=== PATIENT | female | born 1950 | race Caucasian/White ===

== ENCOUNTER 2017-01-15 16:28 | Observation (INO) | payer MEDICARE ==
[~2017-01-15] VITALS: Ht 162.6 cm; Wt 72.0 kg
[2017-01-15] VITALS (7 sets, daily range): BP systolic 125–158; BP diastolic 67–85; PULSE 100–112; RESP 16–20; TEMP 98.6–98.9; O2SAT 92–96
[~2017-01-15 16:28] MED LIST: DICL50 PO; GLUCTAB PO
[2017-01-15] MEDS ORDERED: FURO1TAB62 PO (18:25)
[2017-01-15] MEDS ORDERED: METF500T PO (18:25)
[2017-01-15] MEDS ORDERED: SPIR25TA PO (18:25)
[2017-01-15] MEDS ORDERED: MELO-1 PO (18:25)
[2017-01-15 18:27] LABS: MEAN CORPUSCULAR HGB CONC 29.3 % (32.0-36.0)
[2017-01-15] MEDS ORDERED: PANTOPRAZOLE SODIUM 40 MG VIAL IVP ONE (18:30)
[2017-01-15] MEDS ORDERED: SODIUM CHLORIDE 0.9% FLUSH 10 ML FLUSH IV FLUSH PRN (18:30)
--- NOTE | 2017-01-15 18:35 | PD ---
HPI Chief Complaint: Edema Time Seen by Provider: 18:20 Travel History International Travel<30 days: No Contact w/Intl Traveler<30days: No Traveled to known affect area: No History of Present Illness HPI 66-year-old female who reports a history of diabetes presents for evaluation of dyspnea, weakness, abdominal distention, black tarry stools and hematemesis. The patient reports that 2 weeks ago she vomited a large amount of bright red blood. She claims that she filled 2 sinks with bright red blood-tinged emesis. She reports that since then she has been developing abdominal distention, left sided upper quadrant abdominal pain and shortness of breath. Symptoms are moderate, aggravated by movement. She also feels like her legs are more swollen than usual. In addition she has been having black tarry stools but she is uncertain if this is secondary to taking iron supplements. She does report that she in the past used meloxicam on a regular basis for arthritis type pain but she for the most part quit using it in September 2016. She still uses it occasionally. Denies any other NSAID use. She was seen by her Primary care physician about this issue, Dr. Soliz, who scheduled an outpatient CT of the abdomen and pelvis however this has not been performed and symptoms have been worsening with prompted evaluation today. She denies any chest pain, flank pain , fevers or chills. She has never had an endoscopy or colonoscopy. She has no other complaints. [facility] Past Medical History Arthritis: Yes Cardiovascular Problems: Yes (1996) Diabetes: Yes Patient Takes Glucophage: Yes Menopausal: Yes Past Surgical History Section: Yes Cholecystectomy: Yes Gynecologic Surgery: Yes () Social History Alcohol Use: No Tobacco Use: No Substance Use: No Allergies-Medications (Allergen,Severity, Reaction): Coded Allergies: Codeine (Verified Allergy, Severe, 01/15/17) Percocet (Verified Allergy, Severe, 01/15/17) Percodan (Verified Allergy, Severe, 01/15/17) Reported Meds & Prescriptions Reported Meds & Active Scripts Active Reported Spironolactone 25 Mg Tab 25 Mg PO DAILY Lasix (Furosemide) 20 Mg Tab 20 Mg PO DAILY Metformin (Metformin HCl) 500 Mg Tab 500 Mg PO BIDPC With meals Meloxicam 15 Mg Tab 15 Mg PO DAILY Review of Systems Except as stated in HPI: all other systems reviewed are Neg Physical Exam Narrative GENERAL: Well-developed well-nourished female in no acute distress. She has low -grade tachycardia and her oxygen saturation is in the low 90s. She appears mildly tachypneic. SKIN: Warm and dry. Pale. HEAD: Atraumatic. Normocephalic. EYES: Pupils equal and round. No scleral icterus. No injection or drainage. ENT: No nasal bleeding or discharge. Mucous membranes pink and moist. NECK: Trachea midline. No JVD. CARDIOVASCULAR: Regular rate and rhythm. No murmur appreciated. RESPIRATORY: No accessory muscle use. Clear to auscultation. Breath sounds equal bilaterally. GASTROINTESTINAL: Abdomen soft, distended with some left-sided abdominal tenderness. No guarding. MUSCULOSKELETAL: No obvious deformities. There is nonpitting lower extremity edema bilaterally. NEUROLOGICAL: Awake and alert. No obvious cranial nerve deficits. Motor grossly within normal limits. Normal speech. PSYCHIATRIC: Appropriate mood and affect; insight and judgment normal. Data Data Last Documented VS Vital Signs Date Time Temp Pulse Resp B/P Pulse Ox O2 Delivery O2 Flow Rate FiO2 01/15/17 19:03 95 2 01/15/17 18:27 106 20 145/67 Room Air 01/15/17 16:28 98.9 Orders Type And Screen (01/15/17 18:25) Complete Blood Count With Diff (01/15/17 18:25) Comprehensive Metabolic Panel (01/15/17 18:25) Lipase (01/15/17 18:25) Prothrombin Time / Inr (Pt) (01/15/17 18:25) Act Partial Throm Time (Ptt) (01/15/17 18:25) Iv Access Insert/Monitor (01/15/17 18:25) Ecg Monitoring (01/15/17 18:25) Oximetry (01/15/17 18:25) Sodium Chloride 0.9% Flush (Ns Flush) (01/15/17 18:30) Electrocardiogram (01/15/17 18:25) Chest, Single Ap (01/15/17 18:25) B-Type Natriuretic Peptide (01/15/17 18:25) Ckmb (Isoenzyme) Profile (01/15/17 18:25) Troponin I (01/15/17 18:25) Pantoprazole Inj (Protonix Inj) (01/15/17 18:30) Red Blood Cells (Rbc) (01/15/17 19:05) Blood Product Administration .UPON TRANSFUSION (01/15/17 19:05) Ct Abd/Pel W Iv Contrast(Rout) (01/15/17 19:09) CKMB (01/15/17 18:35) CKMB% (01/15/17 18:35) Iohexol 350 Inj (Omnipaque 350 Inj) (01/15/17 19:19) Sodium Chlor 0.9% 1000 Ml Inj (Ns 1000 M (01/15/17 19:34) Admit Order (Ed Use Only) (01/15/17 20:01) Labs Laboratory Tests Test 01/15/17 01/15/17 01/15/17 18:35 19:07 19:28 White Blood Count 3.9 TH/MM3 Red Blood Count 3.31 MIL/MM3 Hemoglobin 6.0 GM/DL Hematocrit 20.4 % Mean Corpuscular Volume 61.7 FL Mean Corpuscular Hemoglobin 18.1 PG Mean Corpuscular Hemoglobin 29.3 % Concent Red Cell Distribution Width 22.1 % Platelet Count 88 TH/MM3 Mean Platelet Volume 8.8 FL Neutrophils (%) (Auto) % Lymphocytes (%) (Auto) % Monocytes (%) (Auto) % Eosinophils (%) (Auto) % Basophils (%) (Auto) % Neutrophils # (Auto) TH/MM3 Lymphocytes # (Auto) TH/MM3 Monocytes # (Auto) TH/MM3 Eosinophils # (Auto) TH/MM3 Basophils # (Auto) TH/MM3 CBC Comment AUTO DIFF Differential Total Cells 100 Counted Neutrophils % (Manual) 63 % Lymphocytes % 23 % Monocytes % 7 % Eosinophils % 6 % Basophils % 1 % Neutrophils # (Manual) 2.5 TH/MM3 Differential Comment FINAL DIFF MANUAL Platelet Estimate LOW Platelet Morphology Comment ENLARGED Ovalocytes 1+ Prothrombin Time 13.4 SEC Prothromb Time International 1.2 RATIO Ratio Activated Partial 24.7 SEC Thromboplast Time Sodium Level 140 MEQ/L Potassium Level 3.4 MEQ/L Chloride Level 107 MEQ/L Carbon Dioxide Level 22.2 MEQ/L Anion Gap 11 MEQ/L Blood Urea Nitrogen 5 MG/DL Creatinine 0.66 MG/DL Estimat Glomerular Filtration 89 ML/MIN Rate Random Glucose 99 MG/DL Calcium Level 8.4 MG/DL Total Bilirubin 1.7 MG/DL Aspartate Amino Transf 31 U/L (AST/SGOT) Alanine Aminotransferase 29 U/L (ALT/SGPT) Alkaline Phosphatase 121 U/L Total Creatine Kinase 186 U/L Creatine Kinase MB 5.2 NG/ML Troponin I LESS THAN 0.02 NG/ML B-Type Natriuretic Peptide 54 PG/ML Total Protein 7.0 GM/DL Albumin 2.9 GM/DL Lipase 207 U/L Blood Type A POSITIVE A POSITIVE Antibody Screen NEGATIVE Blood Bank Comment V Crossmatch Leukocyte-Reduced Red Blood Cells MDM Medical Decision Making Medical Screen Exam Complete: Yes Emergency Medical Condition: Yes Medical Record Reviewed: Yes Interpretation(s) EKG sinus tachycardia rate 102 Differential Diagnosis Upper GI bleed, lower GI bleed, peptic ulcer disease, perforation, critical anemia, pulmonary embolism Narrative Course 66-year-old female with 2 weeks of GI bleed symptoms with shortness of breath, abdominal distention, stool description suggesting melena, hematemesis, shortness of breath and fatigue. Place for basic lab work, type and screen, chest x-ray, CT abdomen and pelvis. The patient will be placed on ECG monitoring and pulse oximetry. She was given 40 mg IV Protonix. Hemoccult performed and was positive. Discussed with my attending who agrees with plan. The patient's laboratory and imaging studies of the interview. Hemoglobin is 6. CT of the abdomen and pelvis reveals a large right pleural effusion as well as evidence of cirrhosis with portal hypertension. The patient was given 2 units of packed red blood cells, 1 L of normal saline. Patient has no known history of cirrhosis. I discussed the case with Dr. Garcia who is agreeable with admission to Dr. Corrales. The patient is being admitted with cardiac telemetry. Procedures EKG Prior to Arrival: Yes HemaPrompt Point of Care Internal Pos. & Neg. Controls: Passed Fecal Specimen Occult Blood: Positive Diagnosis Primary Impression: GI bleed Qualified Code: K92.2 - Gastrointestinal hemorrhage, unspecified gastrointestinal hemorrhage type Additional Impressions: Symptomatic anemia Cirrhosis Qualified Code: K74.60 - Cirrhosis of liver with ascites, unspecified hepatic cirrhosis type Pleural effusion Admitting Information Admitting Physician Requests: Admit Jean Claude Win Jan 15, 2017 18:35
[2017-01-15 18:58] LABS: MEAN CELL VOLUME 61.7 FL (80.0-100.0); MEAN CORPUSCULAR HEMOGLOBIN 18.1 PG (27.0-34.0); PLATELET COUNT 88 TH/MM3 (150-450); RED BLOOD COUNT 3.31 MIL/MM3 (4.00-5.30); RED CELL DISTRIBUTION WIDTH 22.1 % (11.6-17.2); WHITE BLOOD COUNT 3.9 TH/MM3 (4.0-11.0)
[2017-01-15 19:00] LABS: HEMO FLAGS AUTO DIFF
[2017-01-15 19:04] LABS: HEMATOCRIT 20.4 % (35.0-46.0)
[2017-01-15 19:06] LABS: ANION GAP 11 MEQ/L (5-15); AST (GOT) 31 U/L (15-37); BICARBONATE 22.2 MEQ/L (21.0-32.0); BLOOD UREA NITROGEN 5 MG/DL (7-18); CHLORIDE 107 MEQ/L (98-107); GLOMERULAR FILTRATION RATE 89 ML/MIN (>89); POTASSIUM 3.4 MEQ/L (3.5-5.1); SODIUM (NA) 140 MEQ/L (136-145)
[2017-01-15 19:10] LABS: ALKALINE PHOSPHATASE 121 U/L (45-117); ALT (GPT) 29 U/L (10-53); CREATINE KINASE 186 U/L (26-192); TOTAL BILIRUBIN ADULT 1.7 MG/DL (0.2-1.0)
[2017-01-15 19:14] LABS: APTT (PATIENT) 24.7 SEC (24.3-30.1); INTERNATIONAL NORMALIZED RATIO 1.2 RATIO; PROTHROMBIN TIME - PATIENT 13.4 SEC (9.8-11.6)
[2017-01-15] MEDS ORDERED: IOHEXOL 350 MG/ML 10 ML VIAL (for RAD DIAG) IV ONE (19:19)
--- NOTE | 2017-01-15 19:20 | RADRPT ---
EXAM DATE/TIME: 01/15/2017 18:47 [facility] COMPARISON: No previous studies available for comparison. INDICATIONS : SOB MEDICAL HISTORY : None. SURGICAL HISTORY : None. ENCOUNTER: Initial ACUITY: 1 day PAIN SCORE: 0/10 LOCATION: chest FINDINGS: Extensive consolidation in the right lower lung zone with associated effusion. Possible minimal effus ion on the left. Cardiac contours are largely obscured. CONCLUSION: Extensive pleuroparenchymal opacity involving the right chest Nuno Mariano MD on January 15, 2017 at 19:17 Board Certified Radiologist. This report was verified electronically.
[2017-01-15 19:23] LABS: CKMB 5.2 NG/ML (0.5-3.6)
[2017-01-15] MEDS ORDERED: SODIUM CHLOR 0.9% 1000 ML INJ 1,000 ML IV SCH (19:34)
--- NOTE | 2017-01-15 19:37 | RADRPT ---
EXAM DATE/TIME: 01/15/2017 19:18 [facility] COMPARISON: No previous studies available for comparison. INDICATIONS : Abdominal distention with black stool and hematemesis. IV CONTRAST: 100 cc Omnipaque 350 (iohexol) IV ORAL CONTRAST: No oral contrast ingested. RADIATION DOSE: 14.98 CTDIvol (mGy) MEDICAL HISTORY : Diabetes mellitus type 2. SURGICAL HISTORY : Cholecystectomy. section. ENCOUNTER: Initial ACUITY: 1 day PAIN SCALE: 6/10 LOCATION: Bilateral lower quadrant TECHNIQUE: Volumetric scanning of the abdomen and pelvis was performed. Using automated exposure control and ad justment of the mA and/or kV according to patient size, radiation dose was kept as low as reasonably achievable to obtain optimal diagnostic quality images. FINDINGS: LOWER LUNGS: Very large right pleural effusion with associated compressive lung base atelectasis. LIVER: Cirrhotic appearance with multiple small low density nodular areas present throughout the liver which are nonspecific but could be regenerative nodules. Prominent recanalized periumbilical vein and othe r stigmata of portal hypertension including prominent esophageal varices. Small line of abdominal and pelvic ascites. No evidence of biliary ductal dilatation. Gallbladder surgically absent. SPLEEN: Mildly enlarged. PANCREAS: Within normal limits. KIDNEYS: Normal in size and shape. There is no mass, stone or hydronephrosis. ADRENAL GLANDS: Within normal limits. VASCULAR: There is no aortic aneurysm. BOWEL/MESENTERY: The stomach, small bowel, and colon demonstrate no acute abnormality. There is no free intraperitone al air or fluid. ABDOMINAL WALL: Within normal limits. RETROPERITONEUM: There is no lymphadenopathy. BLADDER: No wall thickening or mass. REPRODUCTIVE: Within normal limits. INGUINAL: There is no lymphadenopathy or hernia. MUSCULOSKELETAL: Within normal limits for patient age. CONCLUSION: Liver cirrhosis and stigmata of portal hypertension. Innumerable small low density areas in the liver may be regenerative nodules however the appearance is nonspecific. Large right pleural effusion and lung base atelectasis. Nuno Mariano MD on January 15, 2017 at 19:32 Board Certified Radiologist. This report was verified electronically.
[2017-01-15 19:57] LABS: BASOPHILS 1 % (0-2); EOSINOPHILS 6 % (0-4); NEUTROPHIL # MANUAL DIFF 2.5 TH/MM3 (1.8-7.7); POLYS (SEG NEUTROPHILS) 63 % (16-70); WBC DIFF SAMPLE 100
[2017-01-15 20:00] LABS: OVALOCYTES 1+ (NORMAL); PLATELET ESTIMATE SMEAR LOW (NORMAL); PLATELET MORPHOLOGY ENLARGED (NORMAL); SCAN/DIFF FINAL DIFF MANUAL
[2017-01-15] MEDS ORDERED: SODIUM CHLORIDE 0.9% FLUSH 10 ML FLUSH IVF PRN (20:15)
[2017-01-15] MEDS: SODIUM CHLORIDE 0.9% FLUSH 10 ML FLUSH IV FLUSH SCH (21:00)
[2017-01-16] VITALS (10 sets, daily range): BP systolic 110–164; BP diastolic 60–79; PULSE 97–112; RESP 16–21; TEMP 97.1–98.6; O2SAT 93–97
[2017-01-16] MEDS ORDERED: ONDANSETRON HCL 4 MG/2 ML VIAL IV PRN (08:30)
[2017-01-16] MEDS ORDERED: POTASSIUM CHLORIDE 20 MEQ CONTROLLED RELEASE TAB PO ONE (08:45)
[2017-01-16] MEDS ORDERED: FUROSEMIDE 20 MG/2 ML VIAL IV PUSH ONE (08:45)
[2017-01-16] MEDS: SODIUM CHLORIDE 0.9% FLUSH 10 ML FLUSH IV FLUSH SCH ×2 (09:00→21:47)
[2017-01-16] MEDS: PANTOPRAZOLE SODIUM 40 MG VIAL IV SCH ×2 (09:26→21:47)
--- NOTE | 2017-01-16 09:52 | PD.CONS ---
HPI History of Present Illness This is a very pleasant 66 year old female with history of diabetes, GERD, cholecystectomy is here for evaluation of dyspnea, abdomen distension, legs edema, black tarry stools, and hematemesis. The abdomen distension and the legs edema have been progressively getting worse over the past 6 months or so, she reports associated shortness of breath especially when lying down. States that 2 weeks ago she vomited a large amount of bright red blood. She claims that she filled 2 sinks with bright red blood-tinged emesis, but no more hematemesis since that episode. She went to see her PCP who ordered CT, but that wasn't done. She endorses black tarry stools for few months which she attributes to iron supplement. She reports mid abdomen pain with no aggravating or reliving factors. Chest X-ray showed Extensive pleuroparenchymal opacity involving the right chest CT (01/15/17) ---->Liver cirrhosis and stigmata of portal hypertension. Innumerable small low density areas in the liver may be regenerative nodules however the appearance is nonspecific. Large right pleural effusion and lung base atelectasis. hgb 6.0, plt 88, AST, ALT normal, ALP 121, bili 1.7, albumin 2.9. Patient denies previous history of cirrhosis. She used to be a heavy drinker in the her 20's and 30's, but has quit for years , now she only drinks 3 times a year if any. She admits to taking Aleve for arthritis type pain but not daily. She reports diarrhea for the past few days, but forming today. She endorses chronic GERD that was poorly controlled with Nexium and was recently switched to Protonix with good symptomatic control. She denies hematochezia, fever, chills or change in urine. She never had EGD/ colonoscopy before. (Steffany Scott) PFSH Past Medical History DM GERD Past Surgical History Cholecystectomy (Steffany Scott) Coded Allergies: Codeine (Verified Allergy, Severe, 01/15/17) Percocet (Verified Allergy, Severe, 01/15/17) Percodan (Verified Allergy, Severe, 01/15/17) Medications Current Medications Medications (Trade) Dose Ordered Sig/Kike Route Start Time Stop Time Status Last Admin (NS Flush) 2 ml UNSCH PRN IV FLUSH 01/15/17 18:30 (NS Flush) 2 ml BID IV FLUSH 01/15/17 21:00 (NS Flush) 2 ml UNSCH PRN IVF 01/15/17 20:15 (Protonix Inj) 40 mg BID IV 01/16/17 09:00 (Zofran Inj) 4 mg Q6H PRN IV 01/16/17 08:30 Family History No family history of colon cancer, her cousin had liver cirrhosis, but was a drinker Social History Alcohol Use: No, hx of heavy drinking in 's and 's Tobacco Use: No Substance Use: No (Steffany Scott) Review of Systems Constitutional: COMPLAINS OF: Fatigue Endocrine: DENIES: Polyuria Eyes: DENIES: Double Vision Ears, nose, mouth, throat: DENIES: Hoarseness Respiratory: COMPLAINS OF: Shortness of breath Cardiovascular: COMPLAINS OF: Lower Extremity Edema, DENIES: Syncope Gastrointestinal: COMPLAINS OF: Abdominal pain, Black stools, Diarrhea, Nausea , Vomiting, Swelling of Abdomen, Heartburn, Hematemesis, DENIES: Bloody stools , Constipation, Difficulty Swallowing, Anorexia, Odynophagia Genitourinary: DENIES: Hematuria Musculoskeletal: DENIES: Neck pain Integumentary: DENIES: Jaundice Hematologic/lymphatic: DENIES: Bruising Immunologic/allergic: DENIES: Eczema Neurologic: DENIES: Abnormal gait Psychiatric: DENIES: Anxiety (Steffany Scott) GI Exam Vitals I&O Vital Signs Date Time Temp Pulse Resp B/P Pulse Ox O2 Delivery O2 Flow Rate FiO2 01/16/17 08:00 98.1 98 16 133/66 95 01/16/17 07:54 94 Nasal Cannula 2.00 01/16/17 00:47 97.1 100 20 134/76 96 01/16/17 00:31 97.1 103 20 137/74 96 01/16/17 00:11 97.1 112 21 164/79 97 01/15/17 22:30 98.6 102 20 143/67 93 Nasal Cannula 2 01/15/17 21:23 95 Nasal Cannula 2.00 01/15/17 20:51 100 16 125/85 94 Nasal Cannula 2 01/15/17 20:19 98.9 100 18 154/67 96 Nasal Cannula 3 01/15/17 19:03 95 2 01/15/17 18:27 106 20 145/67 94 Room Air 01/15/17 16:28 98.9 112 20 158/74 92 Room Air I/O 01/15/17 01/15/17 01/15/17 01/16/17 01/16/17 01/16/17 07:00 15:00 23:00 07:00 15:00 23:00 Intake Total 250 ml 770 ml Balance 250 ml 770 ml Intake Oral 380 ml IV Total 32 ml Packed Cells 250 ml 358 ml # Voids 5 Imaging Last Impressions Abdomen/Pelvis CT 01/15/17 1909 Signed Impressions: Service Date/Time: Sunday, January 15, 2017 19:18 - CONCLUSION: Liver cirrhosis and stigmata of portal hypertension. Innumerable small low density areas in the liver may be regenerative nodules however the appearance is nonspecific. Large right pleural effusion and lung base atelectasis. Nuno Mariano MD Chest X-Ray 01/15/17 1829 Signed Impressions: Service Date/Time: Sunday, January 15, 2017 18:47 - CONCLUSION: Extensive pleuroparenchymal opacity involving the right chest Nuno Mariano MD Laboratory Test 01/15/17 01/15/17 01/15/17 18:35 19:07 19:28 White Blood Count 3.9 TH/MM3 Red Blood Count 3.31 MIL/MM3 Hemoglobin 6.0 GM/DL Hematocrit 20.4 % Mean Corpuscular Volume 61.7 FL Mean Corpuscular Hemoglobin 18.1 PG Mean Corpuscular Hemoglobin 29.3 % Concent Red Cell Distribution Width 22.1 % Platelet Count 88 TH/MM3 Mean Platelet Volume 8.8 FL Neutrophils (%) (Auto) % Lymphocytes (%) (Auto) % Monocytes (%) (Auto) % Eosinophils (%) (Auto) % Basophils (%) (Auto) % Neutrophils # (Auto) TH/MM3 Lymphocytes # (Auto) TH/MM3 Monocytes # (Auto) TH/MM3 Eosinophils # (Auto) TH/MM3 Basophils # (Auto) TH/MM3 CBC Comment AUTO DIFF Differential Total Cells 100 Counted Neutrophils % (Manual) 63 % Lymphocytes % 23 % Monocytes % 7 % Eosinophils % 6 % Basophils % 1 % Neutrophils # (Manual) 2.5 TH/MM3 Differential Comment FINAL DIFF MANUAL Platelet Estimate LOW Platelet Morphology Comment ENLARGED Ovalocytes 1+ Prothrombin Time 13.4 SEC Prothromb Time International 1.2 RATIO Ratio Activated Partial 24.7 SEC Thromboplast Time Sodium Level 140 MEQ/L Potassium Level 3.4 MEQ/L Chloride Level 107 MEQ/L Carbon Dioxide Level 22.2 MEQ/L Anion Gap 11 MEQ/L Blood Urea Nitrogen 5 MG/DL Creatinine 0.66 MG/DL Estimat Glomerular Filtration 89 ML/MIN Rate Random Glucose 99 MG/DL Calcium Level 8.4 MG/DL Total Bilirubin 1.7 MG/DL Aspartate Amino Transf 31 U/L (AST/SGOT) Alanine Aminotransferase 29 U/L (ALT/SGPT) Alkaline Phosphatase 121 U/L Total Creatine Kinase 186 U/L Creatine Kinase MB 5.2 NG/ML Troponin I LESS THAN 0.02 NG/ML B-Type Natriuretic Peptide 54 PG/ML Total Protein 7.0 GM/DL Albumin 2.9 GM/DL Lipase 207 U/L Blood Type A POSITIVE A POSITIVE Antibody Screen NEGATIVE Blood Bank Comment V Crossmatch Leukocyte-Reduced Red Blood Cells Physical Examination HEENT: Pupils round and reactive to light; normocephalic; atraumatic; no jaundice. Throat is clear. NECK: Neck is supple, no JVD, no lymphadenopathy. CHEST: Chest is clear to auscultation and percussion. CARDIAC: Regular rate and rhythm with no murmur gallop or rubs. ABDOMEN: Soft, distended,tender; no hepatosplenomegaly; bowel sounds are present in all four quadrants. EXTREMITIES: 2+ edema SKIN: Normal; no rash; no jaundice. FRONT OFFICE DEVELOPER: No focal deficits; alert and oriented times three. (Steffany Scott) Assessment and Plan Plan - GI bleed/anemia of 6- PPI Gtt, received 2 units of blood last night, HH today pending, no more bleeding reported, She never had EGD/colonoscopy before. Patient is here for evaluation of dyspnea, abdomen distension, legs edema, black tarry stools, and hematemesis. The abdomen distension and the legs edema have been progressively getting worse over the past 6 months or so, she reports associated shortness of breath especially when lying down. States that 2 weeks ago she vomited a large amount of bright red blood. She claims that she filled 2 sinks with bright red blood-tinged emesis, but no more hematemesis since that episode. She went to see her PCP who ordered CT, but that wasn't done. She endorses black tarry stools for few months which she attributes to iron supplement. She reports mid abdomen pain with no aggravating or reliving factors. She admits to taking Aleve for arthritis type pain but not daily. She reports diarrhea for the past few days, but forming today. - New diagnosis of cirrhosis- CT (01/15/17) ---->Liver cirrhosis and stigmata of portal hypertension. Innumerable small low density areas in the liver may be regenerative nodules however the appearance is nonspecific. Large right pleural effusion and lung base atelectasis. hgb 6.0, plt 88, AST, ALT normal, ALP 121, bili 1.7, albumin 2.9. Patient denies previous history of cirrhosis. She used to be a heavy drinker in the her 20's and 30's, but has quit for years, now she only drinks 3 times a year if any. - GERD She endorses chronic GERD that was poorly controlled with Nexium and was recently switched to Protonix with good symptomatic control. - Thrombocytopenia- secondary to cirrhosis - pleural effusion- Chest X-ray showed Extensive pleuroparenchymal opacity involving the right chest - DM per attending Plan: - NPO - EGD/banding today to r/o varices, or PUD - Obtain consents - cont. PPI Gtt - BRITNEY, AMA, ASMA, Celiac panel, iron studies, ceruloplasmin, alpha antitrypsin deficiency, AFP, hepatitis panel - Lasix 20 mg, Aldactone 50 mg - monitor hh - Transfuse as needed - supportive care - Patient seen and examined by Dr. Paulino and myself and this note is written on her behalf. (Steffany Scott) Physician Comments seen, examined agree with above she was told 25 years ago , when she had cholecystectomy, that she had fatty liver-no biopsy as per her she has a history etoh use in her 20's and 30's. she stopped drinking since denies history of hepatitis, jaundice , her father had liver cirrhosis due to etoh. Never had egd/colonoscopy, was scheduled to see next week . States she has anemia for the last 1 year ADDENDUM patient seen in or by anesthesia, procedure cancelled for now due sob, low saturation we will reschedule possible next week egd/colon, urgent endoscopy if active bleeding may need thoracocentesis if not better (Nicki Paulino MD) Steffany Scott Jan 16, 2017 09:52 Nicki Paulino MD Jan 16, 2017 11:06
[2017-01-16 10:56] LABS: HEMATOCRIT 25.6 % (35.0-46.0); MEAN CELL VOLUME 65.6 FL (80.0-100.0); MEAN CORPUSCULAR HGB CONC 32.1 % (32.0-36.0); PLATELET COUNT 86 TH/MM3 (150-450); RED CELL DISTRIBUTION WIDTH 26.2 % (11.6-17.2); WHITE BLOOD COUNT 3.4 TH/MM3 (4.0-11.0)
[2017-01-16 11:00] LABS: REVIEW FLAG FINAL
[2017-01-16 11:15] LABS: BICARBONATE 23.1 MEQ/L (21.0-32.0); POTASSIUM 3.6 MEQ/L (3.5-5.1)
[2017-01-16 11:16] LABS: TRANSFERRIN IRON PROFILE 290 MG/DL (200-360)
[2017-01-16 11:18] LABS: FERRITIN 6 NG/ML (8-252)
--- NOTE | 2017-01-16 16:10 | EKG ---
Date Performed: 01/15/2017 Time Performed: 18:41:16 PTAGE: 66 years EKG: SINUS TACHYCARDIA MINIMAL ST DEPRESSION QRS voltage is smaller compared to the old tracing ABNORMAL RHYTHM ECG PREVIOUS TRACING : 01/03/1994 15.07 DOCTOR: Mariusz Vo Interpretating Date/Time 01/16/2017 16:09:03
[2017-01-17] VITALS: BP 127/72; PULSE 108; RESP 17; TEMP 97.9; O2SAT 94
[2017-01-17 04:38] LABS: POTASSIUM 3.5 MEQ/L (3.5-5.1)
[2017-01-17 04:46] LABS: MEAN CELL VOLUME 65.7 FL (80.0-100.0); MEAN CORPUSCULAR HEMOGLOBIN 20.9 PG (27.0-34.0); MEAN CORPUSCULAR HGB CONC 31.8 % (32.0-36.0); PLATELET COUNT 75 TH/MM3 (150-450); RED BLOOD COUNT 3.51 MIL/MM3 (4.00-5.30); RED CELL DISTRIBUTION WIDTH 25.7 % (11.6-17.2); WHITE BLOOD COUNT 2.9 TH/MM3 (4.0-11.0)
[2017-01-17 04:52] LABS: REVIEW FLAG FINAL
[2017-01-17 08:00] VITALS: BP 118/59; PULSE 92; RESP 17; TEMP 98.3; O2SAT 95
[2017-01-17] MEDS: SODIUM CHLORIDE 0.9% FLUSH 10 ML FLUSH IV FLUSH SCH (08:32)
[2017-01-17] MEDS: PANTOPRAZOLE SODIUM 40 MG VIAL IV SCH (08:32)
[2017-01-17] MEDS ORDERED: FUROSEMIDE 20 MG/2 ML VIAL IV PUSH SCH (09:00)
--- NOTE | 2017-01-17 15:17 | HHI.PR ---
Subjective Remarks sitting on side of bed alert, mild anxiety wanting to go home Objective Objective Results - Vital Signs Date Time Temp Pulse Resp B/P Pulse Ox O2 Delivery O2 Flow Rate FiO2 01/17/17 08:00 98.3 92 17 118/59 95 01/17/17 00:00 97.9 108 17 127/72 94 01/16/17 22:11 93 Nasal Cannula 3.00 01/16/17 21:41 95 Nasal Cannula 2.00 01/16/17 20:00 97.9 98 18 136/71 95 01/16/17 16:00 98.6 112 18 131/78 93 I/O 01/16/17 01/16/17 01/16/17 01/17/17 01/17/17 01/17/17 07:00 15:00 23:00 07:00 15:00 23:00 Intake Total 770 ml 0 ml 240 ml 240 ml Balance 770 ml 0 ml 240 ml 240 ml Intake Oral 380 ml 0 ml 240 ml 240 ml IV Total 32 ml Packed Cells 358 ml # Voids 5 7 5 3 # Bowel Movements 4 5 Result Diagram: 01/17/173 01/17/17 0403 ROS General: Fatigue, Weakness (mild, up in room), Other (10 point ROS done) Pulmonary: SOB (exertional) GI: Abdominal Pain (bloating,) Physical Exam Physical Exam PHYSICAL EXAMINATION GENERAL: This is an mild obese well-developed, well-nourished female sitting on side of bed. She is alert and awake HEAD: Normocephalic without any lesion or mass noted. Facial features appear symmetric. OROPHARYNGEAL: Oropharynx without erythema or edema. NECK: Supple. No nuchal rigidity or lymphadenopathy. Trachea midline without deviation. CARDIAC: Regular rhythm, regular rate, S1 and S2 are heard. Murmur []; no gallops or rubs. LUNGS: Clear to auscultation bilaterally. [] wheeze, [] rhonchi or [] rale. No use of accessory muscles on inspiration or expiration. ABDOMEN: taut, nontender to light palpation, mild fluid wave. Bowel sounds are heard in all four quadrants. No rebound. No guarding. EXTREMITIES: trace LL edema. Pulses equal bilateral. NEUROLOGICAL: Patient mood and affect anxious. No focal deficit SKIN:Warm and moist, dry Objective Remarks Kristal got to go home and check on 7 animals A/P Assessment and Plan anemia , severe, GI bleed 2 weeks, ago, 2 u PRBCs yesterday, hgb back down to 7.3, monitor labs. No further episodes of bleeding. GI consult. appreciate. dm, PO meds medical management, high normal ranges without issues cirrhosis, new diagnosis, with bloating in abd. , but mild improvement over last 24 hrs. appreciate GI consult and input. Pt unable to tolerate lying flat for EDG, procedure yeserday in radiology. Plan is for reattempt procedure in the future/ next week. pleural effusion. , 2nd to SOB, cirrhosis, O2 NC prn, monitor labs reviewed, vitals reviewed, afebrile. BP ok leukopenia, 2nd to cirrhosis probable, K+ 3.5 SCD During visit, patient states she has to go home and take care of 7 animals. She has f/u appointment with PCP jono week, and she states she is set up to see another GI doc this wed. Discussed the medical issues and delimma of leaving hospital against medical advice. It is my and Dr. Corrales's opinion she still needs agressive monitoring and care. Patient still insists on leaving. Signing out AMA. D/W nurse d/W Dr. Corrales Discussed With: Nurse, Family (pt.), Other (Dr. Corrales, seen on her behalf) Christina Parekh Jan 17, 2017 15:17
--- NOTE | 2017-01-17 19:28 | PD.AMA ---
Against Medical Advice Note Discharge Disposition: Against Medical Advice Pt Condition on Discharge: Guarded Recommended Treatment Course Patient was admitted on 17 with extreme anemia, status post large bleeding episode 1-2 weeks ago. Patient also had significant shortness of breath. He required 2 units of packed RBCs and constant monitoring of her labs. She also has new onset diagnosis of cirrhosis which was complicating her severe anemia and shortness of breath. GI was consulted, attempted to have a procedure performed in radiology but patient was unable to lie flat secondary to her shortness of breath. Plan was for patient to stabilize and be able to have this procedure sometime within the next few days. Patient was feeling better today even though her hemoglobin was still trending back down and decided that she wanted to go home. Patient had 7 animals to take care of she states, and plans to follow-up with her PCP in the morning. She also states that her PCP already has her GI appointment scheduled for Wednesday morning as an outpatient should she has had her medical condition and recommendations explained to her but still insist on leaving. Explained to patient that if she has any acute problems she needs to return to the emergency room. she understands this process. Dr. Corrales and [facility] spoke to her in detail. AMA Statement Patient Guera Wilson has decided to leave the hospital against medical advice. This patient has the capacity to refuse care and understands the risks of leaving, including permanent disability and/or , and has had an opportunity to ask questions about her condition. The patient has been informed that she may return for care at any time, and follow up has been arranged/ advised. Christina Parekh Jan 17, 2017 19:28
--- NOTE | 2017-01-18 08:21 | MH ---
cc: AMIE CORRALES DATE OF ADMISSION: 01/15/2017 DATE OF : 1950 CHIEF COMPLAINT Shortness of breath, very recent GI bleeding. Travel in the last 30 days - none. HISTORY OF PRESENT ILLNESS This is a pleasant 66-year-old white female who had been in her usual state of health up until a couple of weeks ago, she noted some edema in her lower extremities which was new to her. She also was sitting one evening watching TV and felt something pop in the right upper quadrant epigastric area of her abdomen. She immediately started bleeding and states that she filled up two sinks of bright red emesis. She then over the past week or two has developed abdominal distention with bloating, abdominal pain and extreme shortness of breath. The patient states that she has been so weak that she had trouble walking to the bathroom or short distances without being very short winded. She did call her PCP, Dr. Soliz, who had ordered some out patient testing which included a CT of the abdomen and pelvis but the patient's symptoms continued to worsen at home. She at that point decided to come to the emergency room for further of evaluation. The patient notes that she also had after that an acute episode of bright red bleeding from emesis, she started having black tarry stools. She does take iron supplements but was not sure if that was related to the color and consistency of the stools. The patient notes that she has been on meloxicam for arthritic type pain in the past but quit taking it in September of 2016. The patient usually is very independent, lives alone and notes no previous problems with her abdomen or GI system. Currently the patient is alert, oriented and a fairly good historian. While in the emergency room, the patient's hemoglobin was 6. She was given 2 units of packed RBCs, placed on oxygen, given IV Protonix and had initial lab work drawn. She also had a chest x-ray and an abdomen and pelvic CT. The patient was stabilized in the emergency room and then brought to the medical floor for further observation. Currently the patient denies any chest pain, no headache, no nausea or vomiting except for that one incident from throwing up the blood. The patient states that she had been taking her medications as prescribed and had no other problems or symptoms. PAST MEDICAL HISTORY Arthritis. Cardiovascular disease from 1996. Diabetic for the past four years, takes metformin twice a day. PAST SURGICAL HISTORY section. Cholecystectomy. ALLERGIES CODEINE, PERCOCET, PERCODAN. SOCIAL HISTORY The patient is , lives alone. No alcohol tobacco or illicit drug use. She states that in the 70s she did drink and do cocaine but has had no drugs since the 70s. MEDICATIONS REPORTED Spironolactone. Lasix. Metformin. Meloxicam which was stopped in September. REVIEW OF SYSTEMS A 12-point review was obtained. Positives and negatives noted in the HPI which include extreme dyspnea, weakness, shortness of breath, abdominal distention, vomiting bright red blood approximately two weeks ago, black tarry stools since, abdominal bloating. All other systems are negative or unremarkable for now. PHYSICAL EXAMINATION VITAL SIGNS: Temperature 97.1, pulse 100, respirations 20, blood pressure 134/76. Initially in the ER pulse was 102, blood pressure 143/67. O2 sat on 2 liters 94%. GENERAL: Well-nourished, well-developed white female, looks to be her stated age, resting in the bed. Actively short of breath at rest and with conversation. HEAD, EYES, EARS, NOSE AND THROAT: Atraumatic, normocephalic. PERRLA at 3. Tongue is moist, midline. Pale mucous membranes. NECK: Supple. CARDIOVASCULAR: Heart sounds S1, S2. A soft systolic murmur noted at the lower left sternal border. Trace of edema in her lower extremities. LUNGS: Equal good breath sounds anteriorly and posteriorly with some mild expiratory wheezing noted. Her breath sounds were diminished on the right. ABDOMEN: Abdomen is round, mild distention with some bloating. Active bowel sounds in all four quadrants. Tactile pain in the right upper quadrant with some mild palpation. MUSCULOSKELETAL: Moves her extremities with purpose. Equal hand sign language teacher. NEUROLOGIC: She is alert, oriented. Answers questions appropriately. Clear speech. No cranial deficits. SKIN: Pale, warm and dry. Turgor is dry. DIAGNOSTIC DATA Chest x-ray shows extensive pleuroparenchymal opacity involving the right chest. Abdomen and pelvic CT: Liver cirrhosis and portal hypertension. Innumerable small low density areas in the liver which may be regenerative nodules, however the appearance is nonspecific. Large pleural effusion and lung base atelectasis. ASSESSMENT AND PLAN 1. Gastrointestinal hemorrhage, probable right upper quadrant. 2. Symptomatic anemia. 3. Cirrhosis of the liver with ascites, with elevated bilirubin level. 4. Pleural effusions. 5. Leukopenia. 6. Hypokalemia. 7. Moderate protein calorie malnutrition. 8. Diabetes mellitus. PLAN Admit to inpatient status. The patient has multisystem comorbidities which may require greater than a 2-3 day admission. She will also have a GI consult to assist in her plan of care. Vital signs will be q.4 at least. Lab work is being reevaluated this a.m. for any further needs and abnormals. Lasix 20 mg IV x1 for her shortness of breath and increased abdominal fluid. We will give her a dose of potassium chloride 40 mg once and reevaluate those needs. IV Protonix. GI consult for his expert opinion. Currently we will manage the patient n.p.o. in case there is further testing that needs to be done from a GI perspective. O2 at 2-4 liters p.r.n. to maintain her sats at 92 or greater. The patient is FULL CODE, FULL AGGRESSIVE CARE. We will follow her further needs. This information will be extensively discussed with Dr. Corrales. Dictated by: [facility] Queen Amie Corrales MD JP/MARYANN /8:43 AM /8:20 AM Patient seen and examined on the day of admission as above. Above-note was not available before to sign Chart was reviewed on day of admission including but not limited to labs radiological data and medications Discussed with RN and [facility] about plan of care Discussed with patient MTDD
[2017-01-18 15:54] LABS: ANA SCREEN NEG (NEG)
[2017-01-20 13:52] LABS: MITOCHONDRIAL ABS LESS THAN 20.0 U (())
== END 2017-01-17 12:30 | disposition home or self-care (01) ==
LOC: NEPA 16:28 → NEDA 20:03 → INTOOBSV 20:03 → N07B 22:44 → UNDODISIN 01-17 12:30
PROVIDERS: ADMIT Specialist; ATTEND Specialist
DX: K92.2 Gastrointestinal hemorrhage, unspecified (principal); Z53.09 Procedure and treatment not carried out because of other contraindication; R06.02 Shortness of breath; D64.9 Anemia, unspecified; K74.60 Unspecified cirrhosis of liver; J90 Pleural effusion, not elsewhere classified; D72.819 Decreased white blood cell count, unspecified; E87.6 Hypokalemia; E44.0 Moderate protein-calorie malnutrition; D69.59 Other secondary thrombocytopenia; E11.9 Type 2 diabetes mellitus without complications; M19.90 Unspecified osteoarthritis, unspecified site; K21.9 Gastro-esophageal reflux disease without esophagitis; Z79.84 Long term (current) use of oral hypoglycemic drugs; Z88.5 Allergy status to narcotic agent; Z88.8 Allergy status to other drugs, medicaments and biological substances; Z68.27 Body mass index [BMI] 27.0-27.9, adult
CPT/HCPCS: 36430; 71010; 74177; 80048; 80053; 80074; 82103; 82105; 82390; 82550; 82552; 82728; 82948; 83516; 83520; 83540; 83550; 83690; 83880; 84484; 85007; 85027; 85610; 85730; 86038; 86256; 86850; 86900; 86901; 86920; 93005; 96374; 99285; C9113; J1940; J7030; P9016; Q9967; G0378

== ENCOUNTER 2018-03-04 13:57 | Inpatient (IN) | payer MEDICARE ==
[~2018-03-04] VITALS: Ht 162.6 cm; Wt 54.3 kg
[~2018-03-04 13:57] MED LIST changes: -DICL50 PO; +FURO1TAB62 PO; -GLUCTAB PO; +MELO15TA20 PO; +METF500T PO; +SPIR25TA PO
[2018-03-04 14:18] VITALS: BP 124/75; PULSE 96; RESP 16; TEMP 97.6; O2SAT 98
--- NOTE | 2018-03-04 14:52 | PD ---
HPI Chief Complaint: Abdominal Pain Time Seen by Provider: 14:48 Travel History International Travel<30 days: No Contact w/Intl Traveler<30days: No Traveled to known affect area: No History of Present Illness HPI This is a 68-year-old female who presents via EMS for evaluation of generalized weakness and abdominal distention. Rapidly progressive generalized weakness, significantly worse over the past week, which prompted evaluation today. She reports that she fell one week ago secondary to the weakness. She currently lives alone. Previously she was follow with primary care physician Dr. Onofre Soliz however she was let go from his practice 2 weeks ago secondary to noncompliance according to the patient. She denies any black or tarry stools, bright red blood per rectum, hematemesis, denies chest pain, shortness of breath , headache, blurred vision. She has no other complaints at this time. PFSH Past Medical History Arthritis: Yes Asthma: No Cancer: Yes Cardiovascular Problems: No COPD: No Diabetes: Yes Endocrine: Yes GERD: Yes Genitourinary: No Immune Disorder: No Neurologic: No Psychiatric: No Reproductive: No Respiratory: Yes Sleep Apnea: No ?: Not Menopausal: Yes Past Surgical History Section: Yes Cholecystectomy: Yes Gynecologic Surgery: Yes () Pacemaker: No Social History Alcohol Use: Yes Tobacco Use: No Substance Use: No Allergies-Medications (Allergen,Severity, Reaction): Coded Allergies: acetaminophen (Unverified Allergy, Severe, 06/08/17) aspirin (Unverified Allergy, Severe, 06/08/17) codeine (Unverified Allergy, Severe, 06/08/17) oxycodone (Unverified Allergy, Severe, 06/08/17) Reported Meds & Prescriptions Reported Meds & Active Scripts Active Reported Spironolactone 25 Mg Tab 25 Mg PO DAILY Lasix (Furosemide) 20 Mg Tab 20 Mg PO DAILY Metformin (Metformin HCl) 500 Mg Tab 1,000 Mg PO BIDPC With meals Review of Systems Except as stated in HPI: all other systems reviewed are Neg Physical Exam Narrative GENERAL: Chronically ill-appearing female no acute distress SKIN: Warm and dry. HEAD: Atraumatic. Normocephalic. EYES: Pupils equal and round. No scleral icterus. No injection or drainage. ENT: No nasal bleeding or discharge. Mucous membranes pink and moist. NECK: Trachea midline. No JVD. CARDIOVASCULAR: Regular rate and rhythm. No murmur appreciated. RESPIRATORY: No accessory muscle use. Clear to auscultation. Breath sounds equal bilaterally. GASTROINTESTINAL: Abdomen soft, distended, generalized mild tenderness to palpation without guarding. MUSCULOSKELETAL: No obvious deformities. No clubbing. No cyanosis. No edema. NEUROLOGICAL: Awake and alert. No obvious cranial nerve deficits. Motor grossly within normal limits. Normal speech. PSYCHIATRIC: Appropriate mood and affect; insight and judgment normal. Data Data Last Documented VS Vital Signs Date Time Temp Pulse Resp B/P (MAP) Pulse Ox O2 Delivery O2 Flow Rate FiO2 03/04/18:18 97.6 96 16 124/75 (91) 98 Orders Orders Complete Blood Count With Diff (03/04/18 14:49) Comprehensive Metabolic Panel (03/04/18 14:49) Lipase (03/04/18 14:49) Prothrombin Time / Inr (Pt) (03/04/18 14:49) Act Partial Throm Time (Ptt) (03/04/18 14:49) Urinalysis - C+S If Indicated (03/04/18 14:49) Ct Abd/Pel W Iv Contrast(Rout) (03/04/18 14:49) Iv Access Insert/Monitor (03/04/18 14:49) Ecg Monitoring (03/04/18 14:49) Oximetry (03/04/18 14:49) Sodium Chloride 0.9% Flush (Ns Flush) (03/04/18 15:00) Electrocardiogram (03/04/18 14:49) Type And Screen (03/04/18 14:49) Ammonia (03/04/18 16:00) Lactic Acid (03/04/18 16:03) Alcohol (Ethanol) (03/04/18 16:03) Salicylates (Aspirin) (03/04/18 16:03) Sodium Chlor 0.9% 1000 Ml Inj (Ns 1000 M (03/04/18 16:03) Blood Gas Venous (Vbg) (03/04/18 16:04) Dextrose 50% In Linette (Vial) Inj (D50w (Vi (03/04/18 16:15) Labs Laboratory Tests Test 03/04/18 15:20 03/04/18 17:18 White Blood Count 4.3 TH/MM3 Red Blood Count 4.96 MIL/MM3 Hemoglobin 11.3 GM/DL Hematocrit 35.6 % Mean Corpuscular Volume 71.7 FL Mean Corpuscular Hemoglobin 22.8 PG Mean Corpuscular Hemoglobin Concent 31.8 % Red Cell Distribution Width 34.0 % Platelet Count 107 TH/MM3 Mean Platelet Volume 9.5 FL Neutrophils (%) (Auto) 58.3 % Lymphocytes (%) (Auto) 28.7 % Monocytes (%) (Auto) 11.4 % Eosinophils (%) (Auto) 0.8 % Basophils (%) (Auto) 0.8 % Neutrophils # (Auto) 2.5 TH/MM3 Lymphocytes # (Auto) 1.2 TH/MM3 Monocytes # (Auto) 0.5 TH/MM3 Eosinophils # (Auto) 0.0 TH/MM3 Basophils # (Auto) 0.0 TH/MM3 CBC Comment AUTO DIFF Differential Comment AUTO DIFF CONFIRMED Prothrombin Time 23.0 SEC Prothromb Time International Ratio 2.3 RATIO Activated Partial Thromboplast Time 31.4 SEC Blood Urea Nitrogen 18 MG/DL Creatinine 0.96 MG/DL Random Glucose 66 MG/DL Total Protein 7.0 GM/DL Albumin 2.5 GM/DL Calcium Level 8.0 MG/DL Alkaline Phosphatase 91 U/L Aspartate Amino Transf (AST/SGOT) 49 U/L Alanine Aminotransferase (ALT/SGPT) 25 U/L Total Bilirubin 4.6 MG/DL Sodium Level 137 MEQ/L Potassium Level 3.4 MEQ/L Chloride Level 99 MEQ/L Carbon Dioxide Level 16.0 MEQ/L Anion Gap 22 MEQ/L Estimat Glomerular Filtration Rate 58 ML/MIN Lipase 98 U/L Blood Gas Puncture Site I.V Blood Gas Patient Temperature 98.6 Venous Blood pH 7.49 Venous Blood Partial Pressure CO2 20 mmHg Venous Blood Partial Pressure O2 21 mmHg Venous Blood HCO3 15 mmol/L Venous Blood Oxygen Saturation 28 % Venous Blood Oxygen Content 3.8 Vol % Venous Blood Base Excess -7.7 mmol/L Oxygen Delivery Device ROOM AIR Blood Gas Inspired Oxygen 21 % [facility] Medical Decision Making Medical Screen Exam Complete: Yes Emergency Medical Condition: Yes Medical Record Reviewed: Yes Differential Diagnosis Ascites, cirrhosis, electrolyte abnormality, anemia Narrative Course CT abdomen and pelvis reveals CONCLUSION: 1. Severe liver cirrhosis with portal hypertension and varices as above. Severe ascites. 2. Moderate right effusion with compressive atelectasis at the right lung base. 3. Scattered colonic diverticulosis. Anion gap is 22, glucose is 66, calcium is 8, bilirubin is 4.6, the patient was given D50. IV fluids ordered. Additional lab worklactic acid, ammonia, aspirin level ordered. PH is 7.49. INR is 2.3. Likely the patient's ascites and pleural effusion and hypoglycemia are contributing to her generalized weakness. She will be admitted for further treatment. Diagnosis Primary Impression: Pleural effusion Additional Impressions: Ascites Hypoglycemia Generalized weakness Cirrhosis Admitting Information Admitting Physician Requests: Admit Jean Claude Win March 04, 2018 14:52
[2018-03-04] MEDS ORDERED: SODIUM CHLORIDE 0.9% FLUSH 10 ML FLUSH IV FLUSH PRN ×2 (15:00→18:15)
[2018-03-04 15:43] LABS: AUTOMATED NEUTROPHIL # 2.5 TH/MM3 (1.8-7.7); BASOPHIL % 0.8 % (0.0-2.0); EOSINOPHIL % 0.8 % (0.0-4.0); HEMATOCRIT 35.6 % (35.0-46.0); HEMOGLOBIN 11.3 GM/DL (11.6-15.3); LYMPH % 28.7 % (9.0-44.0); LYMPHOCYTE # 1.2 TH/MM3 (1.0-4.8); MEAN CELL VOLUME 71.7 FL (80.0-100.0); MEAN CORPUSCULAR HEMOGLOBIN 22.8 PG (27.0-34.0); MEAN CORPUSCULAR HGB CONC 31.8 % (32.0-36.0); MEAN PLATELET VOLUME 9.5 FL (7.0-11.0); MONO % 11.4 % (0.0-8.0); MONOCYTE # 0.5 TH/MM3 (0-0.9); NEUT % 58.3 % (16.0-70.0); PLATELET COUNT 107 TH/MM3 (150-450); RED BLOOD COUNT 4.96 MIL/MM3 (4.00-5.30); WHITE BLOOD COUNT 4.3 TH/MM3 (4.0-11.0)
[2018-03-04 15:52] LABS: INTERNATIONAL NORMALIZED RATIO 2.3 RATIO
[2018-03-04 16:02] LABS: ALBUMIN 2.5 GM/DL (3.4-5.0); AST (GOT) 49 U/L (15-37); BLOOD UREA NITROGEN 18 MG/DL (7-18); CHLORIDE 99 MEQ/L (98-107); CREATININE 0.96 MG/DL (0.50-1.00); GLOMERULAR FILTRATION RATE 58 ML/MIN (>89); GLUCOSE,RANDOM 66 MG/DL (74-106); SODIUM (NA) 137 MEQ/L (136-145)
[2018-03-04] MEDS ORDERED: SODIUM CHLOR 0.9% 1000 ML INJ 1,000 ML IV SCH (16:03)
[2018-03-04 16:05] LABS: ALKALINE PHOSPHATASE 91 U/L (45-117); ALT (GPT) 25 U/L (10-53); TOTAL BILIRUBIN ADULT 4.6 MG/DL (0.2-1.0)
[2018-03-04] MEDS ORDERED: DEXTROSE 50% IN WATER 50 ML VIAL(D50) IV PUSH ONE (16:15)
--- NOTE | 2018-03-04 17:08 | RADRPT ---
EXAM DATE/TIME: 03/04/2018 16:33 [place] COMPARISON: No previous studies available for comparison. INDICATIONS : Abdominal pain and swelling for 6 months IV CONTRAST: 91 cc Omnipaque 350 (iohexol) IV ORAL CONTRAST: No oral contrast ingested. RADIATION DOSE: 9.07 CTDIvol (mGy) MEDICAL HISTORY : Gastroesophageal reflux disease. Diabetes mellitus type 1. SURGICAL HISTORY : Cholecystectomy. ENCOUNTER: Initial ACUITY: 4 - 6 months PAIN SCALE: 5/10 LOCATION: abdomen TECHNIQUE: Volumetric scanning of the abdomen and pelvis was performed. Using automated exposure control and ad justment of the mA and/or kV according to patient size, radiation dose was kept as low as reasonably achievable to obtain optimal diagnostic quality images. DICOM format image data is available electro nically for review and comparison. FINDINGS: There is a least a moderate sized right pleural effusion with compressive atelectasis at the right matt ng base. There is severe liver cirrhosis and severe ascites. There is recannulization of the periumbilical vei ns and extensive varices around the distal esophagus extending into the upper retroperitoneum. There is colonic diverticulosis without evidence for diverticulitis. No acute bony abnormalities. CONCLUSION: 1. Severe liver cirrhosis with portal hypertension and varices as above. Severe ascites. 2. Moderate right effusion with compressive atelectasis at the right lung base. 3. Scattered colonic diverticulosis. Dashawn Lao MD on March 04, 2018 at 17:02 Board Certified Radiologist. This report was verified electronically.
[2018-03-04] MEDS ORDERED: IOHEXOL 350 MG/ML 10 ML VIAL (for RAD DIAG) IVCONTRAST ONE (17:52)
[2018-03-04] MEDS ORDERED: ONDANSETRON HCL 4 MG/2 ML VIAL IVP PRN (18:15)
[2018-03-04] MEDS ORDERED: MAGNESIUM HYDROXIDE SUSP 30 ML CUP PO PRN (18:15)
[2018-03-04] MEDS ORDERED: SENNOSIDES 8.6 MG TAB PO PRN (18:15)
[2018-03-04] MEDS ORDERED: NALOXONE HCL 0.4 MG/ML AMP IV PUSH PRN (18:15)
[2018-03-04] MEDS ORDERED: LACTULOSE SYRUP 20 GM/30 ML CUP PO PRN (18:15)
[2018-03-04] MEDS ORDERED: BISACODYL 10 MG SUPP RECTAL PRN (18:15)
[2018-03-04 18:34] VITALS: O2SAT 97
[2018-03-04 19:16] VITALS: BP 114/78; PULSE 96; RESP 20; O2SAT 96
--- NOTE | 2018-03-04 19:25 | HHI.HP ---
HPI Service [facility] Primary [facility] Physician Onofre Soliz M.D. Admission Diagnosis Severe ascites, pleural effusion, cirrhosis Diagnoses: (1) Cirrhosis Diagnosis: Principal (2) Coagulopathy Diagnosis: Principal (3) Lactic acidosis Diagnosis: Principal (4) DM (diabetes mellitus) Diagnosis: Principal Travel History International Travel<30 Days: No Contact w/Intl Traveler <30 Da: No Traveled to Known Affected Are: No History of Present Illness This is a 68-year-old female with a PMH of DM and h/o GI Bleed who presented to the ER w/ abdominal distention and weakness x1 wk. No reported nausea, vomiting or diarrhea. 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 Pt is significantly poor historian w/ seemingly little insight into medical conditions and appears to be non- compliant w/ medical treatments/follow up. Recently discharged by PCP for non- compliance. Per review of medical records, pt w/ similar presentation and admission 01/15/17, had been sent for CT Abd/Pelvis by PCP however never got it done. Was admitted for GI Bleed at that time w/ Hgb 6 s/p transfusion, noted to have cirrhosis w/ ascites, had extensive work up and was to undergo EGD, however pt had episode of hypoxia and EGD re-scheduled, pt LEFT AMA prior to EGD being done. Labs from 01/16/17 w/ BRITNEY negative, Mitochondrial Ab negative, Anti-Sm Muscle Ab negative, Transglutamin IgG/IgA 1.8/<1.2, Hep Panel negative. Pt reports previous h/o Alcohol but states she drinks "only during bike week and only in [place]". On arrival, BP 124/75, HR 96, O2 sat 98% RA, Afebrile. Hemoglobin 11.3. Platelets 107, previously 75 on 01/17/2017. Chemistry essentially unremarkable. Lactic Acid 6.6. Total bilirubin 4.6. AST 49. Ammonia less than 10. Lipase 98. INR 2.3. Salicylate negative, alcohol negative. CT Abdomen/Pelvis severe liver cirrhosis with portal hypertension and varices, severe ascites, moderate right effusion with compressive atelectasis at right lung base. Review of Systems Except as stated in HPI: all other systems reviewed are Neg ROS: 14 point review of systems otherwise negative. Past Family Social History Past Medical History PMH: DM and h/o GI Bleed Past Surgical History PAST SURGICAL HISTORY: , Cholecystectomy Allergies: Coded Allergies: acetaminophen (Unverified Allergy, Severe, 06/08/17) aspirin (Unverified Allergy, Severe, 06/08/17) codeine (Unverified Allergy, Severe, 06/08/17) oxycodone (Unverified Allergy, Severe, 06/08/17) Family History PAST FAMILY HISTORY: Reviewed. No h/o DM or CAD Social History PAST SOCIAL HISTORY: Occasional alcohol. Negative for tobacco or drugs. Physical Exam Vital Signs Vital Signs Date Time Temp Pulse Resp B/P (MAP) Pulse Ox O2 Delivery O2 Flow Rate FiO2 03/04/18 19:16 96 20 114/78 (90) 96 Room Air 03/04/18 18:34 97 21 03/04/18 14:18 97.6 96 16 124/75 (91) 98 Physical Exam PE: GENERAL: Thin, chronically ill-appearing middle-aged white female in no acute distress. HEENT: PERRLA, EOMI. No scleral icterus or conjunctival pallor. No lid lag or facial droop. CARDIOVASCULAR: Regular rate and rhythm. No obvious murmurs to auscultation. No chest tenderness to palpation. RESPIRATORY: No obvious rhonchi or wheezing. Clear to auscultation. Breath sounds equal bilaterally. GASTROINTESTINAL: Abdomen soft, significant abdominal distention with ascites. BS normal. MUSCULOSKELETAL: Extremities without clubbing, cyanosis, or edema. No obvious deformities. NEUROLOGICAL: Awake, alert and oriented x4. No focal neurologic deficits. Moving both upper and lower extremities spontaneously. Laboratory Laboratory Tests Test 03/04/18 15:20 03/04/18 16:24 03/04/18 16:27 03/04/18 17:18 White Blood Count 4.3 Red Blood Count 4.96 Hemoglobin 11.3 Hematocrit 35.6 Mean Corpuscular Volume 71.7 Mean Corpuscular Hemoglobin 22.8 Mean Corpuscular Hemoglobin Concent 31.8 Red Cell Distribution Width 34.0 Platelet Count 107 Mean Platelet Volume 9.5 Neutrophils (%) (Auto) 58.3 Lymphocytes (%) (Auto) 28.7 Monocytes (%) (Auto) 11.4 Eosinophils (%) (Auto) 0.8 Basophils (%) (Auto) 0.8 Neutrophils # (Auto) 2.5 Lymphocytes # (Auto) 1.2 Monocytes # (Auto) 0.5 Eosinophils # (Auto) 0.0 Basophils # (Auto) 0.0 CBC Comment AUTO DIFF Differential Comment AUTO DIFF CONFIRMED Prothrombin Time 23.0 Prothromb Time International Ratio 2.3 Activated Partial Thromboplast Time 31.4 Blood Urea Nitrogen 18 Creatinine 0.96 Random Glucose 66 Total Protein 7.0 Albumin 2.5 Calcium Level 8.0 Alkaline Phosphatase 91 Aspartate Amino Transf (AST/SGOT) 49 Alanine Aminotransferase (ALT/SGPT) 25 Total Bilirubin 4.6 Sodium Level 137 Potassium Level 3.4 Chloride Level 99 Carbon Dioxide Level 16.0 Anion Gap 22 Estimat Glomerular Filtration Rate 58 Lipase 98 Salicylates Level LESS THAN 1.7 Ethyl Alcohol Level LESS THAN 3 Lactic Acid Level 6.6 Ammonia LESS THAN 10 Blood Gas Puncture Site I.V Blood Gas Patient Temperature 98.6 Venous Blood pH 7.49 Venous Blood Partial Pressure CO2 20 Venous Blood Partial Pressure O2 21 Venous Blood HCO3 15 Venous Blood Oxygen Saturation 28 Venous Blood Oxygen Content 3.8 Venous Blood Base Excess -7.7 Oxygen Delivery Device ROOM AIR Blood Gas Inspired Oxygen 21 Result Diagram: 03/04/18 1520 03/04/18 1520 Caprini VTE Risk Assessment Caprini VTE Risk Assessment: No/Low Risk (score <= 1) VTE Pharm Contraindication: Coagulopathy,INR elevated Caprini Risk Assessment Model Point Value = 1 Point Value = 2 Point Value = 3 Point Value = 5 Age 41-60 Minor surgery BMI > 25 kg/m2 Swollen legs Varicose veins or History of unexplained or recurrent spontaneous Oral contraceptives or hormone replacement Sepsis (< 1 month) Serious lung disease, including pneumonia (< 1 month) Abnormal pulmonary function Acute myocardial infarction Congestive heart failure (< 1 month) History of inflammatory bowel disease Medical patient at bed rest Age 61-74 Arthroscopic surgery Major open surgery (> 45 min) Laparoscopic surgery (> 45 min) Malignancy Confined to bed (> 72 hours) Immobilizing plaster cast Central venous access Age >= 75 History of VTE Family history of VTE Factor V Leiden Prothrombin [id number] Lupus anticoagulant Anticardiolipin antibodies Elevated serum homocysteine Heparin-induced thrombocytopenia Other congenital or acquired thrombophilia Stroke (< 1 month) Elective arthroplasty Hip, pelvis, or leg fracture Acute spinal cord injury (< 1 month) Prophylaxis Regimen Total Risk Factor Score Risk Level Prophylaxis Regimen 0-1 Low Early ambulation 2 Moderate Order ONE of the following: *Sequential Compression Device (SCD) *Heparin 5000 units SQ BID 3-4 Higher Order ONE of the following medications: *Heparin 5000 units SQ TID *Enoxaparin/Lovenox 40 mg SQ daily (WT < 150 kg, CrCl > 30 mL/min) *Enoxaparin/Lovenox 30 mg SQ daily (WT < 150 kg, CrCl > 10-29 mL/min) *Enoxaparin/Lovenox 30 mg SQ BID (WT < 150 kg, CrCl > 30 mL/min) AND/OR *Sequential Compression Device (SCD) 5 or more Highest Order ONE of the following medications: *Heparin 5000 units SQ TID (Preferred with Epidurals) *Enoxaparin/Lovenox 40 mg SQ daily (WT < 150 kg, CrCl > 30 mL/min) *Enoxaparin/Lovenox 30 mg SQ daily (WT < 150 kg, CrCl > 10-29 mL/min) *Enoxaparin/Lovenox 30 mg SQ BID (WT < 150 kg, CrCl > 30 mL/min) AND *Sequential Compression Device (SCD) Assessment and Plan Problem List: (1) Cirrhosis ICD Code: K74.60 - Unspecified cirrhosis of liver Status: Acute (2) Coagulopathy ICD Code: D68.9 - Coagulation defect, unspecified (3) Lactic acidosis ICD Code: E87.2 - Acidosis (4) DM (diabetes mellitus) ICD Code: E11.9 - Type 2 diabetes mellitus without complications Assessment and Plan A/P: 1. Cirrhosis: h/o Cirrhosis/Portal HTN per review of records from 12/2016, pt reports "this is the first time I've heard that", h/o GI Bleed requiring transfusion in 12/2016, however LEFT AMA prior to EGD at that time. Unclear etiology, previous work up negative, denies alcohol abuse. Total Bili 4.7, AST 49. CT Abd/Pelvis w/ extensive cirrhosis/portal HTN and varices and severe ascites, images reviewed by me. IR for Paracentesis in am. Peritoneal fluid cultures/labs ordered. Consult GI for further evaluation/intervention. Start Propranolol, Aldactone, Lasix, monitor I/O. 2. Coagulopathy: secondary to above, INR 2.5, not on anticoagulation, start Vit K 5mg po qd, repeat INR in am, monitor closely for bleeding. 3. Lactic Acidosis: Lactate 6.6, no signs of sepsis, likely due to dehydration from third spacing. D5NS bolus, monitor I/O, repeat Lactic Acid 4. DM: Hold Metformin, sliding scale w/ Accu-Cheks. 5. DVT Prophylaxis: Pharmacologic contraindication secondary to coagulopathy/ thrombocytopenia 6. Social work for d/c planning as needed. 7. Case discussed w/ ER physician at length, labs/records/imaging reviewed extensively by me. Physician Certification 2 Midnight Certification Type: Admission for Inpatient Services Order for Inpatient Services The services are ordered in accordance with Medicare regulations or non- Medicare payer requirements, as applicable. In the case of services not specified as inpatient-only, they are appropriately provided as inpatient services in accordance with the 2-midnight benchmark. Estimated LOS (days): 2 days is the estimated time the patient will need to remain in the hospital, assuming treatment plan goals are met and no additional complications. Post-Hospital Plan: Not yet determined Fairba Liang MD March 04, 2018 19:25
[2018-03-04] MEDS ORDERED: DEXTROSE 50% IN WATER 50 ML VIAL(D50) IV PUSH PRN (19:30)
[2018-03-04] MEDS ORDERED: GLUCAGON 1 MG/ML VIAL OTHER PRN (19:30)
[2018-03-04] MEDS ORDERED: POTASSIUM CHLORIDE 10 MEQ CONTROLLED RELEASE TAB PO ONE (20:00)
[2018-03-04 20:48] VITALS: BP 128/81; PULSE 94; RESP 18; TEMP 98.5; O2SAT 99
[2018-03-04] MEDS: INSULIN ASPART SUPPLEMENTAL SCALE SQ SCH (21:00)
[2018-03-04] MEDS: DOCUSATE SODIUM 50 MG/SENNA 8.6 MG TAB PO SCH (21:00)
[2018-03-04] MEDS ORDERED: DEXT 5%-NACL 0.9% 500 ML INJ 500 ML IV ONE (21:30)
[2018-03-04] MEDS ORDERED: PHYTONADIONE 5 MG TAB PO ONE (21:45)
[2018-03-04] MEDS ORDERED: PHYTONADIONE 5 MG/SWFI 5 ML ORAL SYR PO ONE (22:00)
[2018-03-04] MEDS: PROPRANOLOL HCL 10 MG TAB PO SCH (22:04)
[2018-03-04] MEDS: SODIUM CHLORIDE 0.9% FLUSH 10 ML FLUSH IV FLUSH SCH (22:13)
[2018-03-04 23:16] LABS: TOTAL PROTEIN 6.3 GM/DL (6.4-8.2)
[2018-03-04 23:42] VITALS: BP 122/82; PULSE 68; RESP 21; TEMP 97.4; O2SAT 97
[2018-03-05] VITALS (9 sets, daily range): BP systolic 91–115; BP diastolic 50–59; PULSE 68–75; RESP 17–20; TEMP 97.4–98.8; O2SAT 93–98
[2018-03-05 06:10] LABS: AUTOMATED NEUTROPHIL # 1.8 TH/MM3 (1.8-7.7); BASOPHIL % 0.6 % (0.0-2.0); EOSINOPHIL # 0.1 TH/MM3 (0-0.4); EOSINOPHIL % 2.6 % (0.0-4.0); HEMATOCRIT 31.2 % (35.0-46.0); HEMOGLOBIN 10.2 GM/DL (11.6-15.3); LYMPH % 36.5 % (9.0-44.0); LYMPHOCYTE # 1.3 TH/MM3 (1.0-4.8); MEAN CELL VOLUME 70.7 FL (80.0-100.0); MEAN CORPUSCULAR HEMOGLOBIN 23.2 PG (27.0-34.0); MEAN CORPUSCULAR HGB CONC 32.8 % (32.0-36.0); MEAN PLATELET VOLUME 8.7 FL (7.0-11.0); MONO % 10.6 % (0.0-8.0); MONOCYTE # 0.4 TH/MM3 (0-0.9); NEUT % 49.7 % (16.0-70.0); PLATELET COUNT 86 TH/MM3 (150-450); RED BLOOD COUNT 4.42 MIL/MM3 (4.00-5.30); WHITE BLOOD COUNT 3.6 TH/MM3 (4.0-11.0)
[2018-03-05 06:13] LABS: INTERNATIONAL NORMALIZED RATIO 2.3 RATIO; PROTHROMBIN TIME - PATIENT 23.2 SEC (9.8-11.6)
[2018-03-05 06:29] LABS: ALBUMIN 2.2 GM/DL (3.4-5.0); AST (GOT) 43 U/L (15-37); BLOOD UREA NITROGEN 17 MG/DL (7-18); CALCIUM 7.7 MG/DL (8.5-10.1); CHLORIDE 103 MEQ/L (98-107); CREATININE 0.79 MG/DL (0.50-1.00); GLOMERULAR FILTRATION RATE 72 ML/MIN (>89); GLUCOSE,RANDOM 91 MG/DL (74-106); SODIUM (NA) 139 MEQ/L (136-145)
[2018-03-05 06:33] LABS: ALKALINE PHOSPHATASE 84 U/L (45-117); ALT (GPT) 24 U/L (10-53); TOTAL BILIRUBIN ADULT 4.3 MG/DL (0.2-1.0); TOTAL PROTEIN 6.2 GM/DL (6.4-8.2)
[2018-03-05] MEDS ORDERED: DEXT 5%-NACL 0.9% 500 ML INJ 500 ML IV ONE (07:00)
[2018-03-05] MEDS: INSULIN ASPART SUPPLEMENTAL SCALE SQ SCH ×4 (08:00→20:42)
[2018-03-05 08:06] LABS: OVALOCYTES 1+ (NORMAL); POLYCHROMASIA 2.1 % (0.0-1.9); TARGET CELLS 1+ (NORMAL)
[2018-03-05] MEDS: DOCUSATE SODIUM 50 MG/SENNA 8.6 MG TAB PO SCH ×2 (09:00→20:39)
[2018-03-05] MEDS ORDERED: PHYTONADIONE 5 MG TAB PO SCH (09:00)
[2018-03-05] MEDS: SODIUM CHLORIDE 0.9% FLUSH 10 ML FLUSH IV FLUSH SCH ×2 (09:00→20:40)
[2018-03-05] MEDS: PROPRANOLOL HCL 10 MG TAB PO SCH ×2 (09:10→20:39)
[2018-03-05] MEDS: PHYTONADIONE 5 MG/SWFI 5 ML ORAL SYR PO SCH (09:11)
[2018-03-05] MEDS: SPIRONOLACTONE 50 MG TAB PO SCH (09:11)
[2018-03-05] MEDS: FUROSEMIDE 40 MG TAB PO SCH (09:11)
--- NOTE | 2018-03-05 09:38 | PD.CONS ---
HPI History of Present Illness This is a 68 year old female who was admitted to the hospital on 03/04/2018 with symptoms of generalized weakness and abdominal distention. Patient notes worsening of her decreased appetite, heartburn, nausea and vomiting, and loose diarrhea stools for the past 4 months. Patient has also had a 30 pound weight loss but has presented with a large obtunded soft abdomen with severe ascites. Patient has a recent history of heavy chain diagnosis approximately 11 months ago and has been followed as an outpatient. Patient was also admitted to the hospital in December 2016 with hematemesis, bloating, abdominal pain, and shortness of breath. This was her first diagnosis of possible liver disease to my knowledge. Patient received 2 units of blood but decided to leave A MA [address] scan on 03/04/2018 shows severe ascites, colonic diverticulosis , and liver disease with portal hypertension and varices. Currently she denies any further acute bleeding episodes. Labs show hemoglobin 10.2, WBC count 3.6, INR 2.3, bilirubin 4.3, LFTs 43 AST, 24 ALT, and alkaline phosphatase 84. These labs and symptoms are probably related to alcoholic cirrhosis. patient does note some mild shortness of breath probably secondary to her large amount of ascites. The current medical plan is to do paracentesis today. Patient has a significant history of alcohol up until one year ago. Patient has had no previous EGD and colonoscopy. Patient is currently complaining of some mild shortness of breath probably secondary to the large amount of ascites. GI has been consulted to assist with her care. 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 No previous EGD or colonoscopy Hematemesis abdominal bloating and shortness of breath one year ago Past Surgical History PAST SURGICAL HISTORY: , Cholecystectomy Coded Allergies: acetaminophen (Unverified Allergy, Severe, 06/08/17) aspirin (Unverified Allergy, Severe, 06/08/17) codeine (Unverified Allergy, Severe, 06/08/17) oxycodone (Unverified Allergy, Severe, 06/08/17) Medications Administered Medications Medications (Trade) Dose Ordered Sig/Kike Route PRN Reason Start Time Stop Time Status Last Admin Dose Admin Sodium Chloride (NS Flush) 2 ml BID IV FLUSH 03/04/18 21:00 03/05/18 09:00 Propranolol HCl (Inderal) 10 mg Q12HR PO 03/04/18 21:00 03/05/18 09:10 Spironolactone (Aldactone) 50 mg DAILY PO 03/05/18 09:00 03/05/18 09:11 Furosemide (Lasix) 40 mg DAILY PO 03/05/18 09:00 03/05/18 09:11 Phytonadione (Mephyton Liq) 5 mg DAILY PO 03/05/18 09:00 03/05/18 09:11 Family History PAST FAMILY HISTORY: Reviewed. No h/o DM or CAD Social History PAST SOCIAL HISTORY: Occasional alcohol. Negative for tobacco or drugs. Review of Systems Constitutional: COMPLAINS OF: Fatigue, Weight loss Gastrointestinal: COMPLAINS OF: Abdominal pain, Diarrhea, Nausea, Vomiting GI Exam Vitals I&O Vital Signs Date Time Temp Pulse Resp B/P (MAP) Pulse Ox O2 Delivery O2 Flow Rate FiO2 03/05/18 08:00 97.9 72 20 103/59 (74) 94 03/05/18 04:03 68 03/05/18 04:00 97.5 75 17 94/57 (69) 96 03/05/18 00:11 71 03/04/18 23:42 97.4 68 21 122/82 (95) 97 03/04/18 22:57 Room Air 03/04/18 20:48 98.5 94 18 128/81 (97) 99 03/04/18 20:27 03/04/18 19:16 96 20 114/78 (90) 96 Room Air 03/04/18 18:34 97 21 03/04/18 14:18 97.6 96 16 124/75 (91) 98 I/O 03/04/18 03/04/18 03/04/18 03/05/18 03/05/18 03/05/18 07:00 15:00 23:00 07:00 15:00 23:00 Intake Total 740 ml Balance 740 ml Intake Oral 240 ml IV Total 500 ml # Voids 2 # Bowel Movements 1 Imaging Last Impressions Abdomen/Pelvis CT 03/04/18 8971 Signed Impressions: Service Date/Time: Sunday, March 04, 2018 16:33 - CONCLUSION: 1. Severe liver cirrhosis with portal hypertension and varices as above. Severe ascites. 2. Moderate right effusion with compressive atelectasis at the right lung base. 3. Scattered colonic diverticulosis. Dashawn Lao MD Laboratory Test 03/04/18 15:20 03/04/18 16:24 03/04/18 16:27 03/04/18 17:18 White Blood Count 4.3 TH/MM3 Red Blood Count 4.96 MIL/MM3 Hemoglobin 11.3 GM/DL Hematocrit 35.6 % Mean Corpuscular Volume 71.7 FL Mean Corpuscular Hemoglobin 22.8 PG Mean Corpuscular Hemoglobin Concent 31.8 % Red Cell Distribution Width 34.0 % Platelet Count 107 TH/MM3 Mean Platelet Volume 9.5 FL Neutrophils (%) (Auto) 58.3 % Lymphocytes (%) (Auto) 28.7 % Monocytes (%) (Auto) 11.4 % Eosinophils (%) (Auto) 0.8 % Basophils (%) (Auto) 0.8 % Neutrophils # (Auto) 2.5 TH/MM3 Lymphocytes # (Auto) 1.2 TH/MM3 Monocytes # (Auto) 0.5 TH/MM3 Eosinophils # (Auto) 0.0 TH/MM3 Basophils # (Auto) 0.0 TH/MM3 CBC Comment AUTO DIFF Differential Comment AUTO DIFF CONFIRMED Prothrombin Time 23.0 SEC Prothromb Time International Ratio 2.3 RATIO Activated Partial Thromboplast Time 31.4 SEC Blood Urea Nitrogen 18 MG/DL Creatinine 0.96 MG/DL Random Glucose 66 MG/DL Total Protein 7.0 GM/DL 6.3 GM/DL Albumin 2.5 GM/DL Calcium Level 8.0 MG/DL Alkaline Phosphatase 91 U/L Aspartate Amino Transf (AST/SGOT) 49 U/L Alanine Aminotransferase (ALT/SGPT) 25 U/L Total Bilirubin 4.6 MG/DL Sodium Level 137 MEQ/L Potassium Level 3.4 MEQ/L Chloride Level 99 MEQ/L Carbon Dioxide Level 16.0 MEQ/L Anion Gap 22 MEQ/L Estimat Glomerular Filtration Rate 58 ML/MIN Lipase 98 U/L Lactate Dehydrogenase 246 U/L Salicylates Level LESS THAN 1.7 MG/DL Ethyl Alcohol Level LESS THAN 3 MG/DL Lactic Acid Level 6.6 mmol/L Ammonia LESS THAN 10 MCMOL/L Blood Gas Puncture Site I.V Blood Gas Patient Temperature 98.6 Venous Blood pH 7.49 Venous Blood Partial Pressure CO2 20 mmHg Venous Blood Partial Pressure O2 21 mmHg Venous Blood HCO3 15 mmol/L Venous Blood Oxygen Saturation 28 % Venous Blood Oxygen Content 3.8 Vol % Venous Blood Base Excess -7.7 mmol/L Oxygen Delivery Device ROOM AIR Blood Gas Inspired Oxygen 21 % Test 03/05/18 05:42 White Blood Count 3.6 TH/MM3 Red Blood Count 4.42 MIL/MM3 Hemoglobin 10.2 GM/DL Hematocrit 31.2 % Mean Corpuscular Volume 70.7 FL Mean Corpuscular Hemoglobin 23.2 PG Mean Corpuscular Hemoglobin Concent 32.8 % Red Cell Distribution Width 33.0 % Platelet Count 86 TH/MM3 Mean Platelet Volume 8.7 FL Neutrophils (%) (Auto) 49.7 % Lymphocytes (%) (Auto) 36.5 % Monocytes (%) (Auto) 10.6 % Eosinophils (%) (Auto) 2.6 % Basophils (%) (Auto) 0.6 % Neutrophils # (Auto) 1.8 TH/MM3 Lymphocytes # (Auto) 1.3 TH/MM3 Monocytes # (Auto) 0.4 TH/MM3 Eosinophils # (Auto) 0.1 TH/MM3 Basophils # (Auto) 0.0 TH/MM3 CBC Comment AUTO DIFF Differential Comment AUTO DIFF CONFIRMED Platelet Estimate LOW Platelet Morphology Comment NORMAL Polychromasia 2.1 % Target Cells 1+ Ovalocytes 1+ Prothrombin Time 23.2 SEC Prothromb Time International Ratio 2.3 RATIO Blood Urea Nitrogen 17 MG/DL Creatinine 0.79 MG/DL Random Glucose 91 MG/DL Total Protein 6.2 GM/DL Albumin 2.2 GM/DL Calcium Level 7.7 MG/DL Alkaline Phosphatase 84 U/L Aspartate Amino Transf (AST/SGOT) 43 U/L Alanine Aminotransferase (ALT/SGPT) 24 U/L Total Bilirubin 4.3 MG/DL Sodium Level 139 MEQ/L Potassium Level 3.0 MEQ/L Chloride Level 103 MEQ/L Carbon Dioxide Level 21.0 MEQ/L Anion Gap 15 MEQ/L Estimat Glomerular Filtration Rate 72 ML/MIN Lactic Acid Level 4.8 mmol/L Physical Examination HEENT: Pupils round and reactive to light; normocephalic; atraumatic; + jaundice. Speech understandable NECK: Neck is supple, thin CHEST: Manage breath sounds CARDIAC: Regular rate and rhythm ABDOMEN:, Round, obtunded, soft, minimal abdominal pain to light palpation , bowel sounds are present in all four quadrants. EXTREMITIES: Trace edema. SKIN: Normal; no rash; + jaundice. ROBOTICS SYSTEMS ENGINEER: No focal deficits; alert and oriented times three. Assessment and Plan Assessment: (1) Ascites ICD Codes: R18.8 - Other ascites Status: Acute (2) Generalized weakness ICD Codes: R53.1 - Weakness Status: Acute (3) Cirrhosis ICD Codes: K74.60 - Unspecified cirrhosis of liver Status: Acute (4) Coagulopathy ICD Codes: D68.9 - Coagulation defect, unspecified Plan 68-year-old female admitted to the hospital on 03/04/2018 with abdominal distention and a large amount of ascites. Patient has also had symptoms of generalized weakness, decreased appetite, heartburn, nausea and vomiting, and await loss of 30 pounds in 2 months. It has a history of alcohol abuse but quit drinking approximately 1 years ago. Loose diarrhea stools 2 times a day 4 months. Alleviating factors Imodium. Admission in December 2016 for hematemesis , bloating, no abdominal pain, and shortness of breath was initially diagnosed with liver cirrhosis, received 2 units of blood but patient signed out AMA before any further treatment was done. No EGD or colonoscopy. CT on 03/04/2018 shows severe ascites colonic diverticulosis, severe liver disease with portal hypertension and varices, and moderate right effusion on compressive atelectasis right lung base. Plan N.p.o. for now, eating a few ice chips Patient is set up for paracentesis today per attending Oxygen ordered at 2 L for shortness of breath. Liver workup initiated, labs Meds initiated, Nadolol 20 mg. daily Lasix 40 mg. daily Aldactone 100 daily Xifaxin 550mg. BID Aldactone 100mg. daily. After Paracentesis, give Albumin 100gm. IV X 1 Patient needs EGD and colonoscopy, will plan for Wednesday tentative Further recommendations to follow Patient was seen per myself and Dr. Elizabeth, note was written on his behalf Christina Parekh March 05, 2018 09:38
[2018-03-05 12:06] LABS: IRON (FE) 82 MCG/DL (50-170)
[2018-03-05 12:09] LABS: % SATURATION IRON PROFILE 35.5 % (20-50); FERRITIN 82 NG/ML (8-252); TOTAL IRON BINDING CAPACITY 231 MCG/DL (250-450)
[2018-03-05 12:51] LABS: CA 19-9 49.7 U/ML (0.0-35.0)
[2018-03-05] MEDS ORDERED: POTASSIUM CHLORIDE 10 MEQ CONTROLLED RELEASE TAB PO ONE (14:15)
--- NOTE | 2018-03-05 14:25 | HHI.PR ---
Subjective Remarks Patient reports she feels miserable, abdominal discomfort. Not eating much. Objective Vitals Vital Signs Date Time Temp Pulse Resp B/P (MAP) Pulse Ox O2 Delivery O2 Flow Rate FiO2 03/05/18 12:00 97.4 68 20 115/58 (77) 98 03/05/18 12:00 69 03/05/18 11:22 94 21 03/05/18 08:00 Room Air 03/05/18 08:00 97.9 72 20 103/59 (74) 94 03/05/18 04:03 68 03/05/18 04:00 97.5 75 17 94/57 (69) 96 03/05/18 00:11 71 03/04/18 23:42 97.4 68 21 122/82 (95) 97 03/04/18 22:57 Room Air 03/04/18 20:48 98.5 94 18 128/81 (97) 99 03/04/18 20:27 03/04/18 19:16 96 20 114/78 (90) 96 Room Air 03/04/18 18:34 97 21 03/04/18 14:18 97.6 96 16 124/75 (91) 98 I/O 03/04/18 03/04/18 03/04/18 03/05/18 03/05/18 03/05/18 07:00 15:00 23:00 07:00 15:00 23:00 Intake Total 740 ml Balance 740 ml Intake Oral 240 ml IV Total 500 ml # Voids 2 # Bowel Movements 1 Result Diagram: 03/05/18 0542 03/05/18 0542 Objective Remarks GENERAL: Patient appear chronically ill, appears older than stated age CARDIOVASCULAR: Normal rate and regular rhythm without murmurs, gallops, or rubs. RESPIRATORY: Good respiratory efforts. Breath sounds equal and clear to auscultation bilaterally. GASTROINTESTINAL: Abdomen markedly distended with obvious significant ascites. Diffuse discomfort to palpation. MUSCULOSKELETAL: Extremities without cyanosis, or edema. NEURO: Alert & Oriented x4 to person, place, time, situation. Moves all ext x4 PSYCH: Appropriate mood and affect. A/P Problem List: (1) Cirrhosis ICD Code: K74.60 - Unspecified cirrhosis of liver Status: Acute (2) Coagulopathy ICD Code: D68.9 - Coagulation defect, unspecified (3) Lactic acidosis ICD Code: E87.2 - Acidosis (4) DM (diabetes mellitus) ICD Code: E11.9 - Type 2 diabetes mellitus without complications Assessment and Plan 68-year-old female with: 1. Cirrhosis: h/o Cirrhosis/Portal HTN per review of records from 12/2016, pt reports "this is the first time I've heard that", h/o GI Bleed requiring transfusion in 12/2016, however LEFT AMA prior to EGD at that time. Unclear etiology, previous work up negative, denies alcohol abuse. Total Bili 4.7, AST 49. CT Abd/Pelvis w/ extensive cirrhosis/portal HTN and varices and severe ascites. IR consulted for Paracentesis. Peritoneal fluid cultures/labs ordered. -GI following. Continue propranolol, Aldactone, Lasix, monitor I/O. Watch blood pressure closely. 2. Coagulopathy: secondary to above, INR still 2.3, not on anticoagulation, continue Vit K 5mg po qd, repeat INR in am, monitor closely for bleeding. 3. Lactic Acidosis: Lactate 6.6, no signs of sepsis, likely due to dehydration from third spacing. Status post albumin. Follow 4. DM: Hold Metformin, sliding scale w/ Accu-Cheks. 5. DVT Prophylaxis: Pharmacologic contraindication secondary to coagulopathy/ thrombocytopenia Belkys Gill MD March 05, 2018 14:25
[2018-03-05] MEDS: PROCHLORPERAZINE INJ 10 MG/2 ML VIAL IV PUSH PRN (15:35)
[2018-03-05] MEDS ORDERED: ALBUMIN 25% INJ 100 ML IV ONE (16:00)
--- NOTE | 2018-03-05 18:32 | EKG ---
Date Performed: 03/04/2018 Time Performed: 16:04:04 PTAGE: 68 years EKG: Sinus rhythm LOW QRS VOLTAGE IN PRECORDIAL LEADS INFERIOR MYOCARDIAL INFARCTION ABNORMAL ECG Since the PREVIOUS TRACING , no significant change noted DOCTOR: Chepe Sidhu Interpretating Date/Time 03/05/2018 18:30:32
[2018-03-05] MEDS: RIFAXIMIN 550 MG TAB PO SCH (20:40)
[2018-03-06] VITALS (10 sets, daily range): BP systolic 92–120; BP diastolic 52–66; PULSE 65–86; RESP 16–20; TEMP 96–97.6; O2SAT 94–98
[2018-03-06 06:03] LABS: HEMATOCRIT 29.2 % (35.0-46.0); HEMOGLOBIN 9.7 GM/DL (11.6-15.3); MEAN CELL VOLUME 70.3 FL (80.0-100.0); MEAN CORPUSCULAR HEMOGLOBIN 23.4 PG (27.0-34.0); MEAN CORPUSCULAR HGB CONC 33.3 % (32.0-36.0); MEAN PLATELET VOLUME 8.4 FL (7.0-11.0); PLATELET COUNT 63 TH/MM3 (150-450); RED BLOOD COUNT 4.16 MIL/MM3 (4.00-5.30); RED CELL DISTRIBUTION WIDTH 32.7 % (11.6-17.2); WHITE BLOOD COUNT 2.5 TH/MM3 (4.0-11.0)
[2018-03-06 06:24] LABS: INTERNATIONAL NORMALIZED RATIO 1.9 RATIO; PROTHROMBIN TIME - PATIENT 19.2 SEC (9.8-11.6)
[2018-03-06 06:35] LABS: ALBUMIN 2.3 GM/DL (3.4-5.0); BICARBONATE 22.4 MEQ/L (21.0-32.0); CALCIUM 7.5 MG/DL (8.5-10.1); CREATININE 0.5 MG/DL (0.50-1.00); DIRECT BILIRUBIN ADULT 1.9 MG/DL (0.0-0.2); INDIRECT BILIRUBIN 3.4 MG/DL (0.0-0.8); TOTAL BILIRUBIN ADULT 5.3 MG/DL (0.2-1.0)
[2018-03-06] MEDS: INSULIN ASPART SUPPLEMENTAL SCALE SQ SCH ×4 (08:00→21:06)
[2018-03-06] MEDS ORDERED: SPIRONOLACTONE 100 MG TAB PO SCH (09:00)
[2018-03-06] MEDS ORDERED: FUROSEMIDE 40 MG TAB PO SCH (09:00)
[2018-03-06] MEDS ORDERED: NADOLOL 20 MG TAB PO SCH (09:00)
[2018-03-06] MEDS: PROPRANOLOL HCL 10 MG TAB PO SCH ×2 (09:18→21:06)
[2018-03-06] MEDS: RIFAXIMIN 550 MG TAB PO SCH ×2 (09:18→21:06)
[2018-03-06] MEDS: FUROSEMIDE 40 MG TAB PO SCH (09:18)
[2018-03-06] MEDS: SPIRONOLACTONE 50 MG TAB PO SCH (09:18)
[2018-03-06] MEDS: POTASSIUM CHLORIDE 10 MEQ CONTROLLED RELEASE TAB PO SCH (09:18)
[2018-03-06] MEDS: SODIUM CHLORIDE 0.9% FLUSH 10 ML FLUSH IV FLUSH SCH ×2 (09:19→21:06)
[2018-03-06] MEDS: PHYTONADIONE 5 MG/SWFI 5 ML ORAL SYR PO SCH (09:19)
[2018-03-06] MEDS: DOCUSATE SODIUM 50 MG/SENNA 8.6 MG TAB PO SCH ×2 (09:19→21:00)
[2018-03-06] MEDS ORDERED: POTASSIUM CHLORIDE 10 MEQ CONTROLLED RELEASE TAB PO ONE (10:00)
--- NOTE | 2018-03-06 13:46 | HHI.GIFU ---
Subjective Remarks Pt resting in bed Unable to eat more than a few bites due to abdominal distention (+) BMs states soft but not watery Some abdominal pain, mostly from swelling Intermittent nausea, denies emesis (Rosy Moore) Objective Vitals I&O Vital Signs Date Time Temp Pulse Resp B/P (MAP) Pulse Ox O2 Delivery O2 Flow Rate FiO2 03/06/18 12:00 97.4 72 20 114/62 (79) 96 03/06/18 08:00 97.3 67 20 120/66 (84) 95 03/06/18 08:00 Nasal Cannula 2.00 03/06/18 08:00 68 03/06/18 04:08 76 03/06/18 04:00 97.6 68 16 96/52 (67) 94 03/06/18 00:01 65 03/06/18 00:00 97.4 66 16 92/55 (67) 96 03/05/18 20:47 95 21 03/05/18 20:00 98.8 68 17 93/59 (70) 93 03/05/18 19:45 Room Air 03/05/18 16:00 97.5 70 20 91/50 (64) 94 I/O 03/05/18 03/05/18 03/05/18 03/06/18 03/06/18 03/06/18 07:00 15:00 23:00 07:00 15:00 23:00 Intake Total 740 ml 480 ml 100 ml Balance 740 ml 480 ml 100 ml Intake Oral 240 ml 480 ml 100 ml IV Total 500 ml # Voids 2 3 2 # Bowel Movements 1 1 1 Laboratory Laboratory Tests Test 03/06/18 04:25 White Blood Count 2.5 Red Blood Count 4.16 Hemoglobin 9.7 Hematocrit 29.2 Mean Corpuscular Volume 70.3 Mean Corpuscular Hemoglobin 23.4 Mean Corpuscular Hemoglobin Concent 33.3 Red Cell Distribution Width 32.7 Platelet Count 63 Mean Platelet Volume 8.4 Prothrombin Time 19.2 Prothromb Time International Ratio 1.9 Blood Urea Nitrogen 12 Creatinine 0.50 Random Glucose 86 Total Protein 6.0 Albumin 2.3 Calcium Level 7.5 Alkaline Phosphatase 76 Aspartate Amino Transf (AST/SGOT) 48 Alanine Aminotransferase (ALT/SGPT) 22 Total Bilirubin 5.3 Direct Bilirubin 1.9 Sodium Level 137 Potassium Level 2.9 Chloride Level 103 Carbon Dioxide Level 22.4 Anion Gap 12 Estimat Glomerular Filtration Rate 122 Magnesium Level 1.5 Indirect Bilirubin 3.4 Imaging Last Impressions Abdomen/Pelvis CT 03/04/18 1449 Signed Impressions: Service Date/Time: Sunday, March 04, 2018 16:33 - CONCLUSION: 1. Severe liver cirrhosis with portal hypertension and varices as above. Severe ascites. 2. Moderate right effusion with compressive atelectasis at the right lung base. 3. Scattered colonic diverticulosis. Dashawn Lao MD Physical Exam HEENT: Normocephalic; atraumatic (+) icterus CHEST: Even/unlabored CARDIAC: RRR ABDOMEN: Distended, soft, diffuse mild tenderness, bowel sounds active EXTREMITIES: No clubbing, cyanosis, or edema. 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 (Rosy Moore) Assessment and Plan Plan Assessment: - Cirrhosis, pt denies history of liver issues, states abdominal swelling and pain for the past 3-4 months. However, records reviewed from December 2016 notes this to be a prior diagnosis, pt seen by our service at that time for reports of GIB and new dx of cirrhosis, however left AMA prior to complete work up. Liver work up at that time negative Denies ETOH for the past year and states prior to that was just a social drinker. According to records admitted to heavy drinking in her 20s and 30s Thrombocytopenia (platelets-63) hypoalbuminemia (albumin 2.3) Coagulopathy (INR-1.9) CT abdomen and pelvis W IV contrast (03/04) --> Severe liver cirrhosis with portal hypertension and varices as above. Severe ascites. Moderate right effusion with compressive atelectasis at the right lung base. Scattered colonic diverticulosis. - Decreased appetite- states this is because when she eats it causes worsening of the abdominal swelling - Unintentional weight loss- despite abdominal swelling Plan Paracentesis tomorrow Spironolactone Lasix Vit K Xifaxan Inderal Lactulose Will need EGD and colonoscopy but wait til after paracentesis, will not tolerate prep at this time Monitor labs Liver work up pending- previous liver work up negative in 2017 Further recommendations based on clinical course and results of above Patient has been seen and examined by myself and Dr. King and this note is written on his behalf (Rosy Moore) Physician Comments Seen and examined with [facility], paracentesis tomorrow. EGD/Colonoscopy next week. (Ashley King MD) Rosy Moore March 06, 2018 13:46 Ashley King MD March 06, 2018 21:17
--- NOTE | 2018-03-06 14:51 | HHI.PR ---
Subjective Remarks Patient states her abdominal distention gets worse whenever she eats. No nausea or vomiting. Objective Vitals Vital Signs Date Time Temp Pulse Resp B/P (MAP) Pulse Ox O2 Delivery O2 Flow Rate FiO2 03/06/18 14:11 96 03/06/18 12:00 97.4 72 20 114/62 (79) 96 03/06/18 12:00 70 03/06/18 08:00 97.3 67 20 120/66 (84) 95 03/06/18 08:00 Nasal Cannula 2.00 03/06/18 08:00 68 03/06/18 04:08 76 03/06/18 04:00 97.6 68 16 96/52 (67) 94 03/06/18 00:01 65 03/06/18 00:00 97.4 66 16 92/55 (67) 96 03/05/18 20:47 95 21 03/05/18 20:00 98.8 68 17 93/59 (70) 93 03/05/18 19:45 Room Air 03/05/18 16:00 97.5 70 20 91/50 (64) 94 I/O 03/05/18 03/05/18 03/05/18 03/06/18 03/06/18 03/06/18 07:00 15:00 23:00 07:00 15:00 23:00 Intake Total 740 ml 480 ml 100 ml Balance 740 ml 480 ml 100 ml Intake Oral 240 ml 480 ml 100 ml IV Total 500 ml # Voids 2 3 2 # Bowel Movements 1 1 1 Result Diagram: 03/06/18 0425 03/06/18 0425 Objective Remarks GENERAL: Patient appear chronically ill, appears older than stated age CARDIOVASCULAR: Normal rate and regular rhythm without murmurs, gallops, or rubs. RESPIRATORY: Good respiratory efforts. Breath sounds equal and clear to auscultation bilaterally. GASTROINTESTINAL: Abdomen markedly distended with obvious significant/severe ascites. Diffuse discomfort to palpation. MUSCULOSKELETAL: Extremities without cyanosis, or edema. NEURO: Alert & Oriented x4 to person, place, time, situation. Moves all ext x4 PSYCH: Appropriate mood and affect. A/P Problem List: (1) Cirrhosis ICD Code: K74.60 - Unspecified cirrhosis of liver Status: Acute (2) Coagulopathy ICD Code: D68.9 - Coagulation defect, unspecified (3) Lactic acidosis ICD Code: E87.2 - Acidosis (4) DM (diabetes mellitus) ICD Code: E11.9 - Type 2 diabetes mellitus without complications Assessment and Plan 68-year-old female with: 1. Cirrhosis: h/o Cirrhosis/Portal HTN per review of records from 12/2016, pt reports "this is the first time I've heard that", h/o GI Bleed requiring transfusion in 12/2016, however LEFT AMA prior to EGD at that time. Unclear etiology, denies alcohol abuse. However reports she used to drink socially in the past. Total Bili 4.7, AST 49. CT Abd/Pelvis w/ extensive cirrhosis/portal HTN and varices and severe ascites. IR consulted for Paracentesis. Peritoneal fluid cultures/labs ordered. Paracentesis to be done tomorrow. -GI following. Continue propranolol, Aldactone, Lasix, monitor I/O. Watch blood pressure closely. -Patient has had over 20 pound unintentional weight loss, CA-19-9 is also elevated. She never had a colonoscopy. GI planning for EGD/colonoscopy after paracentesis. 2. Coagulopathy: secondary to above, INR 2.5 on presentation, 1.9 today, not on anticoagulation, continue Vit K 5mg po qd, repeat INR in am, monitor closely for bleeding. 3. Lactic Acidosis: Lactate 6.6, no signs of sepsis, likely due to dehydration from third spacing. Status post albumin. Follow 4. DM: Hold Metformin, sliding scale w/ Accu-Cheks. 5. DVT Prophylaxis: Pharmacologic contraindication secondary to coagulopathy/ thrombocytopenia 6. Hypokalemia/hypomagnesemia: - Replace and monitor. Belkys Gill MD March 06, 2018 14:51
[2018-03-06] MEDS ORDERED: LIDOCAINE HCL 1% 20 ML VIAL ONE (15:45)
--- NOTE | 2018-03-06 15:58 | RADRPT ---
EXAM DATE/TIME: 03/06/2018 08:01 [facility] COMPARISON: No previous studies available for comparison. INDICATIONS : Ascites. MEDICAL HISTORY : Gastroesophageal reflux disease. Snoring. Dyspnea. Arthritis. Diabetes. SURGICAL HISTORY : Cholecystectomy section. ENCOUNTER: Initial ACUITY: 1 month PAIN SCORE: 4/10 LOCATION: Right lower quadrant FLUID: Total volume of 5200 cc of clear, red fluid was removed. Fluid was sent to lab for ordered studies. Post procedure scanning reveals no hematoma or other complication. TECHNIQUE: 1. Ultrasound guidance for abdominal paracentesis. 2. Paracentesis. The risks, benefits, and alternatives to ultrasound guided paracentesis were explained to the patient in detail including the risk of bleeding and infection. Written and verbal informed consent was obt ained. With the patient on the ultrasound table, ultrasound imaging was used to select the most appropriate approach for paracentesis. Overlying skin was prepped and draped in the usual sterile fashion and wi th a local anesthetic, a dermatotomy was made with an 11 blade scalpel. A 6 [place] [id number] ca theter was introduced into the peritoneal cavity and fluid was collected. The patient tolerated the procedure well and left the ultrasound suite in stable condition. CONCLUSION: Uncomplicated ultrasound guided paracentesis. Nuno Mariano MD on March 06, 2018 at 15:56 Board Certified Radiologist. This report was verified electronically.
[2018-03-06] MEDS ORDERED: ALBUMIN 25% INJ 0 ML IV ONE (16:00)
[2018-03-06 17:16] LABS: TOTAL PROTEIN,PERITONEAL FLUID 1.1 GM/DL
[2018-03-06] MEDS: MAGNESIUM SULFATE 1 GM PREMIX 100 ML IV SCH ×2 (17:46→18:44)
[2018-03-06 19:17] LABS: PERITONEAL EOS 3 %; PERITONEAL LYMPHS 84 %; PERITONEAL MONOS 1 %; PERITONEAL POLYS(SEGS) 12 %
[2018-03-06 19:18] LABS: PERITONEAL RBC 10418 /MM3 (0-0)
[2018-03-07] VITALS (9 sets, daily range): BP systolic 86–102; BP diastolic 51–69; PULSE 66–107; RESP 16–20; TEMP 96.8–97.7; O2SAT 93–97
[2018-03-07 06:58] LABS: HEMATOCRIT 31.5 % (35.0-46.0); HEMOGLOBIN 10.2 GM/DL (11.6-15.3); MEAN CELL VOLUME 72.6 FL (80.0-100.0); MEAN CORPUSCULAR HEMOGLOBIN 23.6 PG (27.0-34.0); MEAN CORPUSCULAR HGB CONC 32.5 % (32.0-36.0); MEAN PLATELET VOLUME 8.5 FL (7.0-11.0); PLATELET COUNT 55 TH/MM3 (150-450); RED BLOOD COUNT 4.34 MIL/MM3 (4.00-5.30); RED CELL DISTRIBUTION WIDTH 34.7 % (11.6-17.2); WHITE BLOOD COUNT 2.1 TH/MM3 (4.0-11.0)
[2018-03-07 07:36] LABS: BICARBONATE 20.8 MEQ/L (21.0-32.0); CALCIUM 7.4 MG/DL (8.5-10.1); CREATININE 0.56 MG/DL (0.50-1.00); MAGNESIUM 1.7 MG/DL (1.5-2.5)
[2018-03-07] MEDS: INSULIN ASPART SUPPLEMENTAL SCALE SQ SCH ×4 (08:00→21:00)
[2018-03-07 08:02] LABS: CALCIUM-PROTEIN CORRECTED 8.1 MG/DL (8.5-10.1); TOTAL PROTEIN 5.9 GM/DL (6.4-8.2)
[2018-03-07] MEDS: RIFAXIMIN 550 MG TAB PO SCH ×2 (08:26→23:18)
[2018-03-07] MEDS: PROPRANOLOL HCL 10 MG TAB PO SCH ×2 (08:26→23:18)
[2018-03-07] MEDS: SPIRONOLACTONE 50 MG TAB PO SCH (08:27)
[2018-03-07] MEDS: SODIUM CHLORIDE 0.9% FLUSH 10 ML FLUSH IV FLUSH SCH ×2 (08:28→23:18)
[2018-03-07] MEDS: POTASSIUM CHLORIDE 10 MEQ CONTROLLED RELEASE TAB PO SCH (08:29)
[2018-03-07] MEDS: DOCUSATE SODIUM 50 MG/SENNA 8.6 MG TAB PO SCH ×2 (08:29→23:18)
[2018-03-07] MEDS: FUROSEMIDE 40 MG TAB PO SCH (08:31)
[2018-03-07] MEDS: PHYTONADIONE 5 MG/SWFI 5 ML ORAL SYR PO SCH (08:31)
--- NOTE | 2018-03-07 11:14 | HHI.GIFU ---
Subjective Remarks Pt resting in bed. Had paracentesis yesterday. Feeling much better, able to tolerate PO intake now. She refuses EGD but is agreeable for colonoscopy. (Aria Sierra) Objective Vitals I&O Vital Signs Date Time Temp Pulse Resp B/P (MAP) Pulse Ox O2 Delivery O2 Flow Rate FiO2 03/07/18 08:00 Room Air 2.00 21 03/07/18 08:00 94 03/07/18 08:00 97.4 83 18 90/57 (68) 97 03/07/18 04:00 67 03/07/18 04:00 96.8 72 20 100/62 (75) 96 03/07/18 04:00 Room Air 03/07/18 00:00 Room Air 03/07/18 00:00 97.7 91 20 94/56 (69) 94 03/07/18 00:00 86 03/06/18 20:00 96.0 86 20 118/61 (80) 96 03/06/18 20:00 86 03/06/18 20:00 Room Air 03/06/18 17:23 96 21 03/06/18 16:00 97.4 70 20 97/61 (73) 98 03/06/18 14:11 96 03/06/18 12:00 97.4 72 20 114/62 (79) 96 03/06/18 12:00 70 I/O 03/06/18 03/06/18 03/06/18 03/07/18 03/07/18 03/07/18 06:59 14:59 22:59 06:59 14:59 22:59 Intake Total 100 ml 460 ml Balance 100 ml 460 ml Intake Oral 100 ml 360 ml IV Total 100 ml # Voids 2 4 # Bowel Movements 1 Laboratory Laboratory Tests Test 03/06/18 14:57 03/07/18 06:00 Peritoneal Fluid WBC 96 Peritoneal Fluid RBC 26489 Peritoneal Fluid Neutrophils 12 Peritoneal Fluid Lymphocytes 84 Peritoneal Fluid Monocytes 1 Peritoneal Fluid Eosinophils 3 Peritoneal Fluid Total Protein 1.1 Peritoneal Fluid Albumin 0.5 Peritoneal Fluid LDH 41 Peritoneal Fluid Glucose 117 White Blood Count 2.1 Red Blood Count 4.34 Hemoglobin 10.2 Hematocrit 31.5 Mean Corpuscular Volume 72.6 Mean Corpuscular Hemoglobin 23.6 Mean Corpuscular Hemoglobin Concent 32.5 Red Cell Distribution Width 34.7 Platelet Count 55 Mean Platelet Volume 8.5 Blood Urea Nitrogen 7 Creatinine 0.56 Random Glucose 103 Total Protein 5.9 Calcium Level 7.4 Magnesium Level 1.7 Sodium Level 137 Potassium Level 3.6 Chloride Level 105 Carbon Dioxide Level 20.8 Anion Gap 11 Estimat Glomerular Filtration Rate 107 Protein Corrected Calcium 8.1 Date/Time Source Procedure Growth Status 03/06/18 14:57 Fluid Peritoneal Fluid Gram Stain - Final Resulted 03/06/18 14:57 Fluid Peritoneal Fluid Body Fluid Culture Pending Resulted Imaging Last Impressions Cyst Biopsy Asp-Paracentesis US 03/06/18 0000 Signed Impressions: Service Date/Time: Tuesday, March 06, 2018 08:01 - CONCLUSION: Uncomplicated ultrasound guided paracentesis. Nuno Mariano MD Abdomen/Pelvis CT 03/04/18 1449 Signed Impressions: Service Date/Time: Sunday, March 04, 2018 16:33 - CONCLUSION: 1. Severe liver cirrhosis with portal hypertension and varices as above. Severe ascites. 2. Moderate right effusion with compressive atelectasis at the right lung base. 3. Scattered colonic diverticulosis. Dashawn Lao MD Physical Exam HEENT: Normocephalic; atraumatic (+) icterus CHEST: CTA CARDIAC: RRR ABDOMEN: Distended with ascites, soft, nontender, bowel sounds active ; navel piercing EXTREMITIES: No clubbing, cyanosis, or edema. SKIN: (+) jaundice THREAD TRIMMER: Alert and oriented times three. (Aria Sierra MANAGER PROPOSAL) Assessment and Plan Assessment: (1) Ascites ICD Codes: R18.8 - Other ascites Status: Acute (2) Generalized weakness ICD Codes: R53.1 - Weakness Status: Acute (3) Cirrhosis ICD Codes: K74.60 - Unspecified cirrhosis of liver Status: Acute (4) Coagulopathy ICD Codes: D68.9 - Coagulation defect, unspecified Plan Assessment: - Cirrhosis, pt denies history of liver issues, states abdominal swelling and pain for the past 3-4 months. However, records reviewed from December 2016 notes this to be a prior diagnosis, pt seen by our service at that time for reports of GIB and new dx of cirrhosis, however left AMA prior to complete work up. Liver work up at that time negative Denies ETOH for the past year and states prior to that was just a social drinker. According to records admitted to heavy drinking in her 20s and 30s Thrombocytopenia (platelets-63) hypoalbuminemia (albumin 2.3) Coagulopathy (INR-1.9) CT abdomen and pelvis W IV contrast (03/04) --> Severe liver cirrhosis with portal hypertension and varices as above. Severe ascites. Moderate right effusion with compressive atelectasis at the right lung base. Scattered colonic diverticulosis. - Decreased appetite- states this is because when she eats it causes worsening of the abdominal swelling - Unintentional weight loss- despite abdominal swelling 03/07/18 s/p paracentesis, 5200 cc removed. SAAG 1.79, indicative portal HTN. CA19.9 elevated 49.7 better tolerating diet now. refuses EGD, agreeable for colonoscopy. DF 38. Plan may benefit from steroids and/or pentoxifylline colonoscopy in am obtain consent clears today NPO after midnight mg citrate prep continue diuretics cont Xifaxan cont Inderal cont Lactulose Patient has been seen and examined by myself and Dr. Paulino and this note is written on her behalf (Aria Sierra) Physician Comments agree with above (Nicki Paulino MD) Aria Sierra March 07, 2018 11:14 Nicki Paulino MD March 07, 2018 17:15
--- NOTE | 2018-03-07 14:37 | HHI.PR ---
Subjective Remarks Patient is status post paracentesis. 5 L removed. She states she feels much better and was able to eat today. Objective Vitals Vital Signs Date Time Temp Pulse Resp B/P (MAP) Pulse Ox O2 Delivery O2 Flow Rate FiO2 03/07/18 12:00 107 03/07/18 12:00 97.5 76 16 102/69 (80) 96 03/07/18 11:50 96 03/07/18 08:00 Room Air 2.00 21 03/07/18 08:00 94 03/07/18 08:00 97.4 83 18 90/57 (68) 97 03/07/18 04:00 67 03/07/18 04:00 96.8 72 20 100/62 (75) 96 03/07/18 04:00 Room Air 03/07/18 00:00 Room Air 03/07/18 00:00 97.7 91 20 94/56 (69) 94 03/07/18 00:00 86 03/06/18 20:00 96.0 86 20 118/61 (80) 96 03/06/18 20:00 86 03/06/18 20:00 Room Air 03/06/18 17:23 96 21 03/06/18 16:00 97.4 70 20 97/61 (73) 98 I/O 03/06/18 03/06/18 03/06/18 03/07/18 03/07/18 03/07/18 07:00 15:00 23:00 07:00 15:00 23:00 Intake Total 100 ml 460 ml Balance 100 ml 460 ml Intake Oral 100 ml 360 ml IV Total 100 ml # Voids 2 4 # Bowel Movements 1 Result Diagram: 03/07/18 0600 03/07/18 0600 Objective Remarks GENERAL: Patient appear chronically ill, appears older than stated age CARDIOVASCULAR: Normal rate and regular rhythm without murmurs, gallops, or rubs. RESPIRATORY: Good respiratory efforts. Breath sounds equal and clear to auscultation bilaterally. GASTROINTESTINAL: Abdomen still distended but much better compared to yesterday. Diffuse, mild discomfort to palpation. MUSCULOSKELETAL: Extremities without cyanosis, or edema. NEURO: Alert & Oriented x4 to person, place, time, situation. Moves all ext x4 PSYCH: Appropriate mood and affect. A/P Problem List: (1) Cirrhosis ICD Code: K74.60 - Unspecified cirrhosis of liver Status: Acute (2) Coagulopathy ICD Code: D68.9 - Coagulation defect, unspecified (3) Lactic acidosis ICD Code: E87.2 - Acidosis (4) DM (diabetes mellitus) ICD Code: E11.9 - Type 2 diabetes mellitus without complications Assessment and Plan 68-year-old female with: 1. Cirrhosis: h/o Cirrhosis/Portal HTN per review of records from 12/2016, pt reports "this is the first time I've heard that", h/o GI Bleed requiring transfusion in 12/2016, however LEFT AMA prior to EGD at that time. Unclear etiology, denies alcohol abuse. However reports she used to drink socially in the past. Total Bili 4.7, AST [address] Abd/Pelvis w/ extensive cirrhosis/portal HTN and varices and severe ascites. -Status post large-volume paracentesis. Ascites fluid studies pending. -GI following. Continue propranolol, Aldactone, Lasix, monitor I/O. Watch blood pressure closely. -Patient has had over 20 pound unintentional weight loss, CA-19-9 is also elevated. She never had a colonoscopy. GI planning for EGD/colonoscopy for tomorrow. 2. Coagulopathy: secondary to above, INR 2.5 on presentation, improved with vitamin K, continue Vit K 5mg po qd, monitor closely for bleeding. 3. Lactic Acidosis: Lactate 6.6, no signs of sepsis, likely due to dehydration from third spacing. Status post albumin. 4. DM: Hold Metformin, sliding scale w/ Accu-Cheks. 5. DVT Prophylaxis: Pharmacologic contraindication secondary to coagulopathy/ thrombocytopenia 6. Hypokalemia/hypomagnesemia: - Replace and monitor. Belkys Gill MD March 07, 2018 14:37
[2018-03-07] MEDS ORDERED: MAGNESIUM CITRATE SOLN 300 ML BTL PO ONE ×2 (16:15→18:15)
[2018-03-07] MEDS: PROCHLORPERAZINE INJ 10 MG/2 ML VIAL IV PUSH PRN (23:19)
[2018-03-08] VITALS (9 sets, daily range): BP systolic 87–117; BP diastolic 52–62; PULSE 63–78; RESP 16–18; TEMP 97.2–97.9; O2SAT 94–100
[2018-03-08] MEDS: INSULIN ASPART SUPPLEMENTAL SCALE SQ SCH ×4 (08:00→21:19)
[2018-03-08] MEDS: PROPRANOLOL HCL 10 MG TAB PO SCH ×2 (09:00→21:17)
[2018-03-08] MEDS: DOCUSATE SODIUM 50 MG/SENNA 8.6 MG TAB PO SCH ×2 (09:00→21:00)
[2018-03-08] MEDS: SPIRONOLACTONE 50 MG TAB PO SCH (09:00)
[2018-03-08] MEDS: FUROSEMIDE 40 MG TAB PO SCH (09:00)
[2018-03-08] MEDS: SODIUM CHLORIDE 0.9% FLUSH 10 ML FLUSH IV FLUSH SCH ×2 (09:17→21:16)
[2018-03-08] MEDS: POTASSIUM CHLORIDE 10 MEQ CONTROLLED RELEASE TAB PO SCH (09:18)
[2018-03-08] MEDS: RIFAXIMIN 550 MG TAB PO SCH ×2 (09:19→21:17)
[2018-03-08] MEDS: PHYTONADIONE 5 MG/SWFI 5 ML ORAL SYR PO SCH (09:19)
[2018-03-08] MEDS ORDERED: PHENYLEPH/NS 1000 MCG/10 ML SYR IV ONE (12:00)
[2018-03-08] MEDS ORDERED: PROPOFOL 200 MG/20 ML AMP IV ONE (12:00)
[2018-03-08] MEDS ORDERED: ePHEDrine/NS 25 MG/5 ML SYRINGE IV ONE (12:00)
[2018-03-08] MEDS ORDERED: POVIDONE IODINE 5% (ANTISEPSIS KIT) 4 APPLICATIONS EACH NARE PRN (12:15)
[2018-03-08] MEDS ORDERED: LACTATED RINGER'S 1000 ML IV PRN (12:15)
[2018-03-08] MEDS ORDERED: METOPROLOL TARTRATE 25 MG TAB PO PRN (12:15)
[2018-03-08] MEDS ORDERED: SODIUM CHLORID 0.9% 500 ML IV PRN (12:15)
[2018-03-08] MEDS ORDERED: CHLORHEXIDINE GLUCONATE 2 % 1 PACK (2 CLOTHS) TOPICAL PRN (12:15)
--- NOTE | 2018-03-08 13:14 | GIPROC ---
[facility] [address] [facility]. [facility], [address] COLONOSCOPY PROCEDURE REPORT EXAM DATE: 03/08/2018 PATIENT NAME: Guera Wilson MR #: [id number] BIRTHDATE: 1950 ENDOSCOPIST: Nicki Paulino MD ORDER #: [id number] FRONT DESK SPECIALIST: Rehan Sebastian and Jillian Triana STATUS: inpatient INDICATIONS: The patient is a 68 yr old female here for a colonoscopy due to weight loss, cirrhosis PROCEDURE PERFORMED: Colonoscopy, diagnostic MEDICATIONS: None and Per Anesthesia. PREP QUALITY: poor PREP TYPE:Other: ESTIMATED BLOOD LOSS: None CONSENT: The patient understands the risks and benefits of the procedure and understands that these risks include, but are not limited to: sedation, allergic reaction, infection, perforation and/or bleeding. Alternative means of evaluation and treatment include, among others: physical exam, x-rays, and/or surgical intervention. The patient elects to proceed with this endoscopic procedure. medical equipment was checked for proper function. Hand hygiene and appropriate measures for infection prevention was taken. After the risks, benefits and alternatives of the procedure were thoroughly explained, Informed consent was verified, confirmed and timeout was successfully executed by the treatment team. A digital exam revealed external hemorrhoids The Pentax [id number] endoscope was introduced through the anus and advanced to the cecum, which was identified by both the appendix and ileocecal valve. The instrument was then slowly withdrawn as the colon was fully examined. COLON FINDINGS: Diverticulosis sigmoid,descending. Retroflexed views revealed internal hemorrhoids and Retroflexed views revealed medium internal hemorrhoids The scope was then completely withdrawn from the patient and the procedure terminated. PROCEDURE WITHDRAWAL TIME:6minutes ADVERSE EVENTS: There were no complications. IMPRESSIONS: 1. Diverticulosis sigmoid,descending 2. Retroflexed views revealed internal hemorrhoids 3. Retroflexed views revealed medium internal hemorrhoids 4. Revealed external hemorrhoids RECOMMENDATIONS: 1. Benefiber 2 tsp daily 2. Avoid NSAIDS and Aspirin 3. Probiotics from any [employer] or health food store 4. Egd if agrees RECALL: Return 3 weeks Colonoscopy Nicki Paulino MD eSigned: Nicki Paulino MD 03/08/2018 1:13 PM cc:
--- NOTE | 2018-03-08 13:46 | HHI.PR ---
Subjective Remarks Patient reports she is feeling week but denies worsening abdominal distention or pain. Able to eat some food. Objective Vitals Vital Signs Date Time Temp Pulse Resp B/P (MAP) Pulse Ox O2 Delivery O2 Flow Rate FiO2 03/08/18 12:00 97.5 70 17 117/60 (79) 96 03/08/18 08:00 63 03/08/18 08:00 Room Air 2.00 21 03/08/18 08:00 97.9 68 16 98/53 (68) 94 03/08/18 04:05 63 03/08/18 04:00 Room Air 03/08/18 04:00 97.2 67 18 91/54 (66) 95 03/08/18 00:01 100/52 (68) 03/08/18 00:01 Room Air 03/08/18 00:01 97.4 69 18 87/53 (64) 97 03/07/18 23:53 70 03/07/18 20:00 97.1 70 18 86/51 (63) 93 03/07/18 20:00 Room Air 03/07/18 19:56 66 03/07/18 16:00 97.1 71 18 97/58 (71) 95 03/07/18 16:00 70 I/O 03/07/18 03/07/18 03/07/18 03/08/18 03/08/18 03/08/18 07:00 15:00 23:00 07:00 15:00 23:00 Intake Total 480 ml 480 ml 200 ml Balance 480 ml 480 ml 200 ml Intake Oral 480 ml 480 ml Other 200 ml # Voids 4 # Bowel Movements 1 Result Diagram: 03/07/18 0600 03/07/18 0600 Objective Remarks GENERAL: Patient appear chronically ill, appears older than stated age CARDIOVASCULAR: Normal rate and regular rhythm without murmurs, gallops, or rubs. RESPIRATORY: Good respiratory efforts. Breath sounds equal and clear to auscultation bilaterally. GASTROINTESTINAL: Abdomen still distended but much better compared to yesterday. Diffuse, mild discomfort to palpation. MUSCULOSKELETAL: Extremities without cyanosis, or edema. NEURO: Alert & Oriented x4 to person, place, time, situation. Moves all ext x4 PSYCH: Appropriate mood and affect. A/P Problem List: (1) Cirrhosis ICD Code: K74.60 - Unspecified cirrhosis of liver Status: Acute (2) Coagulopathy ICD Code: D68.9 - Coagulation defect, unspecified (3) Lactic acidosis ICD Code: E87.2 - Acidosis (4) DM (diabetes mellitus) ICD Code: E11.9 - Type 2 diabetes mellitus without complications Assessment and Plan 68-year-old female with: 1. Cirrhosis: h/o Cirrhosis/Portal HTN per review of records from 12/2016, pt reports "this is the first time I've heard that", h/o GI Bleed requiring transfusion in 12/2016, however LEFT AMA prior to EGD at that time. Unclear etiology, denies alcohol abuse. However reports she used to drink socially in the past. Total Bili 4.7, AST [address] Abd/Pelvis w/ extensive cirrhosis/portal HTN and varices and severe ascites. -Status post large-volume paracentesis. Ascites fluid studies pending. No signs of infection, cytology pending. -GI following. Continue propranolol, Aldactone, Lasix, monitor I/O. Watch blood pressure closely. -Patient has had over 20 pound unintentional weight loss, CA-19-9 is also elevated. She never had a colonoscopy. GI planning for EGD/colonoscopy for today 2. Coagulopathy/thrombocytopenia: secondary to above, INR 2.5 on presentation , improved with vitamin K, continue Vit K 5mg po qd, monitor closely for bleeding. 3. Lactic Acidosis: Lactate 6.6, no signs of sepsis, likely due to dehydration from third spacing. Status post albumin. 4. DM: Hold Metformin, sliding scale w/ Accu-Cheks. 5. DVT Prophylaxis: Pharmacologic contraindication secondary to coagulopathy/ thrombocytopenia 6. Hypokalemia/hypomagnesemia: Replaced Discharge Planning Follow cytology. Need to rule out malignancy. Likely need SNF placement. EGD/ colonoscopy today per GI Belkys Gill MD March 08, 2018 13:46
[2018-03-08 13:52] LABS: SMOOTH MUSCLE TOTAL AUTOABS Negative (Negative)
[2018-03-08 14:35] LABS: AMYLASE BODY FLUID 12 U/L; AMYLASE BODY FLUID TYPE PERITONEAL
[2018-03-08 14:57] LABS: ALPHA-1-ANTITRYPSIN 79 mg/dL (100 - 190)
[2018-03-09] VITALS (13 sets, daily range): BP systolic 90–102; BP diastolic 58–62; PULSE 71–78; RESP 15–18; TEMP 97.4–97.9; O2SAT 94–97
[2018-03-09] MEDS: INSULIN ASPART SUPPLEMENTAL SCALE SQ SCH ×4 (08:00→20:48)
[2018-03-09] MEDS: PROPRANOLOL HCL 10 MG TAB PO SCH ×2 (08:55→20:48)
[2018-03-09] MEDS: SPIRONOLACTONE 50 MG TAB PO SCH (08:55)
[2018-03-09] MEDS: DOCUSATE SODIUM 50 MG/SENNA 8.6 MG TAB PO SCH ×2 (08:56→20:48)
[2018-03-09] MEDS: FUROSEMIDE 40 MG TAB PO SCH (08:56)
[2018-03-09] MEDS: RIFAXIMIN 550 MG TAB PO SCH ×2 (09:00→20:48)
[2018-03-09] MEDS: POTASSIUM CHLORIDE 10 MEQ CONTROLLED RELEASE TAB PO SCH (09:02)
[2018-03-09] MEDS: PHYTONADIONE 5 MG/SWFI 5 ML ORAL SYR PO SCH (09:03)
[2018-03-09] MEDS: SODIUM CHLORIDE 0.9% FLUSH 10 ML FLUSH IV FLUSH SCH ×2 (09:03→20:48)
--- NOTE | 2018-03-09 11:08 | HHI.GIFU ---
Subjective Remarks REsting in bed in NAD. Denies abd pain. Says she is having some leg weakness. Does not want another colonoscopy. (Aria Sierra) Objective Vitals I&O Vital Signs Date Time Temp Pulse Resp B/P (MAP) Pulse Ox O2 Delivery O2 Flow Rate FiO2 03/09/18 08:12 97.4 71 17 97/59 (72) 96 03/09/18 08:00 Room Air 03/09/18 04:10 75 03/09/18 04:00 97.6 72 15 100/58 (72) 97 03/09/18 00:19 71 03/09/18 00:00 97.7 77 15 100/62 (75) 97 03/08/18 20:00 97.8 78 18 106/62 (77) 97 03/08/18 20:00 Room Air 03/08/18 19:42 70 03/08/18 18:22 03/08/18 16:00 97.5 65 17 96/60 (72) 100 03/08/18 16:00 71 03/08/18 13:25 70 20 107/60 (76) 98 03/08/18 13:20 118/78 (91) 03/08/18 13:15 97.6 69 20 79/47 (58) 98 03/08/18 12:00 97.5 70 17 117/60 (79) 96 03/08/18 12:00 70 I/O 03/08/18 03/08/18 03/08/18 03/09/18 03/09/18 03/09/18 06:59 14:59 22:59 06:59 14:59 22:59 Intake Total 480 ml 200 ml 0 ml 450 ml Balance 480 ml 200 ml 0 ml 450 ml Intake Oral 480 ml 450 ml IV Total 0 ml Other 200 ml # Voids 4 2 # Bowel Movements 1 Laboratory Date/Time Source Procedure Growth Status 03/06/18 14:57 Fluid Peritoneal Fluid Gram Stain - Final Complete 03/06/18 14:57 Fluid Peritoneal Fluid Body Fluid Culture - Final NO GROWTH IN 72 HRS.--AEROBICALLY OR ... Complete Imaging Last Impressions Cyst Biopsy Asp-Paracentesis US 03/06/18 0000 Signed Impressions: Service Date/Time: Tuesday, March 06, 2018 08:01 - CONCLUSION: Uncomplicated ultrasound guided paracentesis. Nuno Mariano MD Abdomen/Pelvis CT 03/04/18 1449 Signed Impressions: Service Date/Time: Sunday, March 04, 2018 16:33 - CONCLUSION: 1. Severe liver cirrhosis with portal hypertension and varices as above. Severe ascites. 2. Moderate right effusion with compressive atelectasis at the right lung base. 3. Scattered colonic diverticulosis. Dashawn Lao MD Physical Exam HEENT: Normocephalic; atraumatic (+) icterus CHEST: CTA CARDIAC: RRR ABDOMEN: Distended with ascites, soft, nontender, bowel sounds active ; navel piercing EXTREMITIES: No clubbing, cyanosis, or edema. 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 (Aria Sierra) Assessment and Plan Assessment: (1) Ascites ICD Codes: R18.8 - Other ascites Status: Acute (2) Generalized weakness ICD Codes: R53.1 - Weakness Status: Acute (3) Cirrhosis ICD Codes: K74.60 - Unspecified cirrhosis of liver Status: Acute (4) Coagulopathy ICD Codes: D68.9 - Coagulation defect, unspecified Plan Assessment: - Cirrhosis, pt denies history of liver issues, states abdominal swelling and pain for the past 3-4 months. However, records reviewed from December 2016 notes this to be a prior diagnosis, pt seen by our service at that time for reports of GIB and new dx of cirrhosis, however left AMA prior to complete work up. Liver work up at that time negative Denies ETOH for the past year and states prior to that was just a social drinker. According to records admitted to heavy drinking in her 20s and 30s Thrombocytopenia (platelets-63) hypoalbuminemia (albumin 2.3) Coagulopathy (INR-1.9) CT abdomen and pelvis W IV contrast (03/04) --> Severe liver cirrhosis with portal hypertension and varices as above. Severe ascites. Moderate right effusion with compressive atelectasis at the right lung base. Scattered colonic diverticulosis. - Decreased appetite- states this is because when she eats it causes worsening of the abdominal swelling - Unintentional weight loss- despite abdominal swelling 03/07/18 s/p paracentesis, 5200 cc removed. SAAG 1.79, indicative portal HTN. CA19.9 elevated 49.7 better tolerating diet now. refuses EGD, agreeable for colonoscopy. DF 38. 5/ s/p colonoscopy --> poor prep, diverticulosis, hemorrhoids. Says she will not do another colonoscopy. peritoneal fluid cytology benign. NO growth 72h. d/w her recommendation to repeat colonoscopy Plan may benefit from steroids and/or pentoxifylline low sodium, low protein diet continue diuretics cont Xifaxan cont Inderal cont Lactulose repeat colonoscopy 3 weeks not much more to add Patient has been seen and examined by myself and Dr. Paulino and this note is written on her behalf (Aria Sierra) Physician Comments seen, examined she has hyperbilirubinemia , more indirect -we will send ldh and haptoglobin , if any indication of hemolysis consider hematology consult await liver work-up results denies etoh use , so Pentoxifylline/Trental may not be helpful at this time low alpha1 antitrypsin level-we will send phenotype (Nicki Paulino MD) Aria Sierra March 09, 2018 11:08 Nicki Paulino MD March 09, 2018 14:26
--- NOTE | 2018-03-09 16:15 | HHI.PR ---
Subjective Remarks Very pleasant in bed appears in nad at this time. No n/v/d/c. No fever or chills. Objective Vitals Vital Signs Date Time Temp Pulse Resp B/P (MAP) Pulse Ox O2 Delivery O2 Flow Rate FiO2 03/09/18 12:12 97.8 76 17 102/58 (73) 96 03/09/18 12:07 96 03/09/18 12:00 Room Air 03/09/18 12:00 73 03/09/18 08:12 97.4 71 17 97/59 (72) 96 03/09/18 08:00 Room Air 03/09/18 07:46 72 03/09/18 04:10 75 03/09/18 04:00 97.6 72 15 100/58 (72) 97 03/09/18 00:19 71 03/09/18 00:00 97.7 77 15 100/62 (75) 97 03/08/18 20:00 97.8 78 18 106/62 (77) 97 03/08/18 20:00 Room Air 03/08/18 19:42 70 03/08/18 18:22 I/O 03/08/18 03/08/18 03/08/18 03/09/18 03/09/18 03/09/18 06:59 14:59 22:59 06:59 14:59 22:59 Intake Total 480 ml 200 ml 0 ml 450 ml Balance 480 ml 200 ml 0 ml 450 ml Intake Oral 480 ml 450 ml IV Total 0 ml Other 200 ml # Voids 4 2 # Bowel Movements 1 Result Diagram: 03/07/18 0600 03/07/18 0600 Imaging Last Impressions Cyst Biopsy Asp-Paracentesis US 03/06/18 0000 Signed Impressions: Service Date/Time: Tuesday, March 06, 2018 08:01 - CONCLUSION: Uncomplicated ultrasound guided paracentesis. Nuno Mariano MD Abdomen/Pelvis CT 03/04/18 1449 Signed Impressions: Service Date/Time: Sunday, March 04, 2018 16:33 - CONCLUSION: 1. Severe liver cirrhosis with portal hypertension and varices as above. Severe ascites. 2. Moderate right effusion with compressive atelectasis at the right lung base. 3. Scattered colonic diverticulosis. Dashawn Lao MD Objective Remarks GENERAL: Patient appear chronically ill, appears older than stated age CARDIOVASCULAR: Normal rate and regular rhythm without murmurs, gallops, or rubs. RESPIRATORY: Good respiratory efforts. Breath sounds equal and clear to auscultation bilaterally. GASTROINTESTINAL: Abdomen still distended but much better compared to yesterday. Diffuse, mild discomfort to palpation. MUSCULOSKELETAL: Extremities without cyanosis, or edema. NEURO: Alert & Oriented x4 to person, place, time, situation. Moves all ext x4 PSYCH: Appropriate mood and affect. A/P Problem List: (1) Cirrhosis ICD Code: K74.60 - Unspecified cirrhosis of liver Status: Acute (2) Coagulopathy ICD Code: D68.9 - Coagulation defect, unspecified (3) Lactic acidosis ICD Code: E87.2 - Acidosis (4) DM (diabetes mellitus) ICD Code: E11.9 - Type 2 diabetes mellitus without complications Assessment and Plan 68-year-old female with: Cirrhosis: h/o Cirrhosis/Portal HTN per review of records from 12/2016, pt reports "this is the first time I've heard that", h/o GI Bleed requiring transfusion in 12/2016, however LEFT AMA prior to EGD at that time. Unclear etiology, denies alcohol abuse. However reports she used to drink socially in the past. 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 Total Bili 4.7, AST [address] Abd/Pelvis w/ extensive cirrhosis/portal HTN and varices and severe ascites. -Status post large-volume paracentesis. Ascites fluid studies pending. No signs of infection, cytology pending. -GI following. Continue propranolol, Aldactone, Lasix, monitor I/O. Watch blood pressure closely. -Patient has had over 20 pound unintentional weight loss, CA-19-9 is also elevated. She never had a colonoscopy. GI planning for EGD/colonoscopy for today Coagulopathy/thrombocytopenia: secondary to above, INR 2.5 on presentation, improved with vitamin K, continue Vit K 5mg po qd, monitor closely for bleeding. Lactic Acidosis: Lactate 6.6, no signs of sepsis, likely due to dehydration from third spacing. Status post albumin. DM2: Hold Metformin, sliding scale w/ Accu-Cheks. Hypokalemia/hypomagnesemia: Replaced. DVT Prophylaxis: Pharmacologic contraindication secondary to coagulopathy/ thrombocytopenia Discharge Planning Follow cytology. Need to rule out malignancy. Likely needs SNF placement. EGD /colonoscopy per GI. Carlene Doyle MD March 09, 2018 16:15
[2018-03-09] MEDS: PROCHLORPERAZINE INJ 10 MG/2 ML VIAL IV PUSH PRN (18:02)
[2018-03-10] VITALS (11 sets, daily range): BP systolic 90–131; BP diastolic 51–75; PULSE 64–77; RESP 17–20; TEMP 97.3–97.8; O2SAT 93–98
[2018-03-10] MEDS: INSULIN ASPART SUPPLEMENTAL SCALE SQ SCH ×4 (08:00→20:32)
--- NOTE | 2018-03-10 08:32 | HHI.PR ---
Subjective Remarks Feels very tired. Says has less abd pain . No fever ro chills. No n/v/d/c. Had some PT today sasy her l;egs are very weak./ The patient is asking for hospice consult as says she will thompson to be discharged home with hospice care. Objective Vitals Vital Signs Date Time Temp Pulse Resp B/P (MAP) Pulse Ox O2 Delivery O2 Flow Rate FiO2 03/10/18 04:00 64 03/10/18 04:00 97.6 70 18 107/59 (75) 94 03/10/18 02:42 97.4 73 18 90/60 (70) 93 131/75 (93) 03/10/18 00:00 97.6 74 18 108/67 (81) 96 03/10/18 00:00 69 03/09/18 20:00 97.7 73 18 99/59 (72) 94 03/09/18 19:45 Room Air 03/09/18 17:42 97 21 03/09/18 16:12 97.9 78 17 90/60 (70) 97 03/09/18 16:00 Room Air 03/09/18 15:57 78 03/09/18 12:12 97.8 76 17 102/58 (73) 96 03/09/18 12:07 96 03/09/18 12:00 Room Air 03/09/18 12:00 73 I/O 03/09/18 03/09/18 03/09/18 03/10/18 03/10/18 03/10/18 07:00 15:00 23:00 07:00 15:00 23:00 Intake Total 450 ml 720 ml 480 ml Balance 450 ml 720 ml 480 ml Intake Oral 450 ml 720 ml 480 ml # Voids 2 2 1 # Bowel Movements 0 Result Diagram: 03/07/18 0600 03/07/18 0600 Imaging Last Impressions Cyst Biopsy Asp-Paracentesis US 03/06/18 0000 Signed Impressions: Service Date/Time: Tuesday, March 06, 2018 08:01 - CONCLUSION: Uncomplicated ultrasound guided paracentesis. Nuno Mariano MD Abdomen/Pelvis CT 03/04/18 1449 Signed Impressions: Service Date/Time: Sunday, March 04, 2018 16:33 - CONCLUSION: 1. Severe liver cirrhosis with portal hypertension and varices as above. Severe ascites. 2. Moderate right effusion with compressive atelectasis at the right lung base. 3. Scattered colonic diverticulosis. Dashawn Lao MD Objective Remarks GENERAL: Patient appear chronically ill, appears older than stated age CARDIOVASCULAR: Normal rate and regular rhythm without murmurs, gallops, or rubs. RESPIRATORY: Good respiratory efforts. Breath sounds equal and clear to auscultation bilaterally. GASTROINTESTINAL: Abdomen still distended but much better compared to yesterday. Diffuse, mild discomfort to palpation. MUSCULOSKELETAL: Extremities without cyanosis, or edema. NEURO: Alert & Oriented x4 to person, place, time, situation. Moves all ext x4 PSYCH: Appropriate mood and affect. A/P Problem List: (1) Cirrhosis ICD Code: K74.60 - Unspecified cirrhosis of liver Status: Acute (2) Coagulopathy ICD Code: D68.9 - Coagulation defect, unspecified (3) Lactic acidosis ICD Code: E87.2 - Acidosis (4) DM (diabetes mellitus) ICD Code: E11.9 - Type 2 diabetes mellitus without complications Assessment and Plan 68-year-old female with: Cirrhosis: h/o Cirrhosis/Portal HTN per review of records from 12/2016, pt reports "this is the first time I've heard that", h/o GI Bleed requiring transfusion in 12/2016, however LEFT AMA prior to EGD at that time. Unclear etiology, denies alcohol abuse. However reports she used to drink socially in the past. 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 Total Bili 4.7, AST [address] Abd/Pelvis w/ extensive cirrhosis/portal HTN and varices and severe ascites. -Status post large-volume paracentesis. Ascites fluid studies pending. No signs of infection. Paracentesis (03/07/18) 5200 cc removed. SAAG 1.79. Culture negative. Cytology with mesothelial cells, lymphocytes, and macrophages. Negative for malignant cells. -GI following. Continue propranolol, Aldactone, Lasix, monitor I/O. Watch blood pressure closely. -Patient has had over 20 pound unintentional weight loss, CA-19-9 is also elevated. She never had a colonoscopy. Had colonoscopy 03/08 showed Diverticulosis in the sigmoid and descending colon. Internal and external hemorrhoids. Patient refused EGD Anemia H/H stable. LDH WNL and Haptoglobin low, hem/onc consulted. Seen by hematology who has ordered a further work up of the anemia. Coagulopathy/thrombocytopenia: secondary to above, INR 2.5 on presentation, improved with vitamin K, continue Vit K 5mg po qd, monitor closely for bleeding. Lactic Acidosis: Lactate 6.6, no signs of sepsis, likely due to dehydration from third spacing. Status post albumin. DM2: Hold Metformin, sliding scale w/ Accu-Cheks. Hypokalemia/hypomagnesemia: Replaced. Elevated TSH , check free t3 and free T4 DVT Prophylaxis: Pharmacologic contraindication secondary to coagulopathy/ thrombocytopenia Discharge Planning Likely needs SNF placement however patient requesting hospice consult as she would like to go home with hospice. Pending improvement and clearance by consultants Carlene Doyle MD March 10, 2018 08:32
[2018-03-10] MEDS: SPIRONOLACTONE 50 MG TAB PO SCH (08:58)
[2018-03-10] MEDS: PROPRANOLOL HCL 10 MG TAB PO SCH ×2 (08:59→20:32)
[2018-03-10] MEDS: DOCUSATE SODIUM 50 MG/SENNA 8.6 MG TAB PO SCH ×2 (08:59→20:31)
[2018-03-10] MEDS: FUROSEMIDE 40 MG TAB PO SCH (08:59)
[2018-03-10] MEDS: RIFAXIMIN 550 MG TAB PO SCH ×2 (09:00→20:31)
[2018-03-10] MEDS: POTASSIUM CHLORIDE 10 MEQ CONTROLLED RELEASE TAB PO SCH (09:00)
[2018-03-10] MEDS: SODIUM CHLORIDE 0.9% FLUSH 10 ML FLUSH IV FLUSH SCH ×2 (09:01→20:31)
[2018-03-10] MEDS: PHYTONADIONE 5 MG/SWFI 5 ML ORAL SYR PO SCH (09:01)
--- NOTE | 2018-03-10 14:45 | HHI.GIFU ---
Subjective Remarks Pt complaining of weakness, worked with physical therapy earlier Denies BM since colonoscopy Denies nausea, vomiting Abdominal pain has been mild since paracentesis (Rosy Moore) Objective Vitals I&O Vital Signs Date Time Temp Pulse Resp B/P (MAP) Pulse Ox O2 Delivery O2 Flow Rate FiO2 03/10/18 12:09 97.6 77 17 96/53 (67) 97 03/10/18 12:00 Room Air 03/10/18 08:09 97.3 72 17 98/51 (67) 98 03/10/18 08:00 Room Air 03/10/18 07:49 73 03/10/18 04:00 64 03/10/18 04:00 97.6 70 18 107/59 (75) 94 03/10/18 02:42 97.4 73 18 90/60 (70) 93 131/75 (93) 03/10/18 00:00 97.6 74 18 108/67 (81) 96 03/10/18 00:00 69 03/09/18 20:00 97.7 73 18 99/59 (72) 94 03/09/18 19:45 Room Air 03/09/18 17:42 97 21 03/09/18 16:12 97.9 78 17 90/60 (70) 97 03/09/18 16:00 Room Air 03/09/18 15:57 78 I/O 03/09/18 03/09/18 03/09/18 03/10/18 03/10/18 03/10/18 07:00 15:00 23:00 07:00 15:00 23:00 Intake Total 450 ml 720 ml 480 ml Balance 450 ml 720 ml 480 ml Intake Oral 450 ml 720 ml 480 ml # Voids 2 2 1 # Bowel Movements 0 Laboratory Laboratory Tests Test 03/09/18 21:07 Haptoglobin LESS THAN 10 Lactate Dehydrogenase 237 Carcinoembryonic Antigen 4.0 Thyroid Stimulating Hormone 3rd Gen 4.120 Date/Time Source Procedure Growth Status 03/06/18 14:57 Fluid Peritoneal Fluid Gram Stain - Final Complete 03/06/18 14:57 Fluid Peritoneal Fluid Body Fluid Culture - Final NO GROWTH IN 72 HRS.--AEROBICALLY OR ... Complete Imaging Last Impressions Cyst Biopsy Asp-Paracentesis US 03/06/18 0000 Signed Impressions: Service Date/Time: Tuesday, March 06, 2018 08:01 - CONCLUSION: Uncomplicated ultrasound guided paracentesis. Nuno Mariano MD Abdomen/Pelvis CT 03/04/18 1449 Signed Impressions: Service Date/Time: Sunday, March 04, 2018 16:33 - CONCLUSION: 1. Severe liver cirrhosis with portal hypertension and varices as above. Severe ascites. 2. Moderate right effusion with compressive atelectasis at the right lung base. 3. Scattered colonic diverticulosis. Dashawn Lao MD Physical Exam HEENT: Normocephalic; atraumatic (+) icterus CHEST: Even/unlabored CARDIAC: RRR ABDOMEN: Distended, soft, bowel sounds active, nontender EXTREMITIES: No clubbing, cyanosis, or edema. 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 (Rosy Moore) Assessment and Plan Assessment: (1) Ascites ICD Codes: R18.8 - Other ascites Status: Acute (2) Generalized weakness ICD Codes: R53.1 - Weakness Status: Acute (3) Cirrhosis ICD Codes: K74.60 - Unspecified cirrhosis of liver Status: Acute (4) Coagulopathy ICD Codes: D68.9 - Coagulation defect, unspecified Plan Assessment: - Cirrhosis, pt denies history of liver issues, states abdominal swelling and pain for the past 3-4 months. However, records reviewed from December 2016 notes this to be a prior diagnosis, pt seen by our service at that time for reports of GIB and new dx of cirrhosis, however left AMA prior to complete work up. Denies ETOH for the past year and states prior to that was just a social drinker. According to records admitted to heavy drinking in her 20s and 30s Thrombocytopenia (platelets-63) hypoalbuminemia (albumin 2.3) Coagulopathy (INR-1.9) Liver RUIZ: Hepatitis panel negative. BRITNEY and ASMA negative. Iron-82 TIBC-231 % sat-35.5 Ferritin-82 AFP-4.2 A1A-79 Ceruloplasmin-26 CT abdomen and pelvis W IV contrast (03/04) --> Severe liver cirrhosis with portal hypertension and varices as above. Severe ascites. Moderate right effusion with compressive atelectasis at the right lung base. Scattered colonic diverticulosis. - Decreased appetite- states this is because when she eats it causes worsening of the abdominal swelling - Unintentional weight loss- despite abdominal swelling CA19.9 elevated 49.7 Paracentesis (03/07/18) 5200 cc removed. SAAG 1.79. Culture negative. Cytology revealed may mesothelial cells, lymphocytes, and macrophages. Negative for malignant cells. Colonoscopy (03/08) --> Diverticulosis in the sigmoid and descending colon. Internal and external hemorrhoids. (03/10) Pt still refuses EGD. Her main complaint at this time is weakness, working with physical therapy. Denies nausea, vomiting. States abdominal pain has been mild since paracentesis. No BM since colonoscopy. H/H stable. LDH WNL and Haptoglobin low, pt seen by hematology who has ordered a further work up of the anemia. TSH elevated- not currently on Synthroid- replacement per attending Plan Alpha 1 Antitrypsin phenotype pending Celiac panel pending Lasix Spironolactone Inderal Xifaxan Vitamin K Further recommendations based on clinical course Patient has been seen and examined by myself and Dr. Paulino and this note is written on her behalf (Rosy Moore) Physician Comments seen, examined agree with above await hematology input (Nicki Paulino MD) Rosy Moore March 10, 2018 14:45 Nicki Paulino MD March 10, 2018 15:15
[2018-03-10 16:52] LABS: IMMUNOGLOBULIN A 532 MG/DL (85-468)
[2018-03-10 17:02] LABS: IMMUNOGLOBULIN G 1700 MG/DL (650-1610); IMMUNOGLOBULIN M 242 MG/DL (45-276)
[2018-03-11] VITALS (7 sets, daily range): BP systolic 91–113; BP diastolic 54–69; PULSE 73–81; RESP 17–20; TEMP 97.5–98.2; O2SAT 94–96
[2018-03-11 03:49] LABS: MITOCHONDRIAL ABS LESS THAN 20.0 U (<=20.0)
[2018-03-11 06:47] LABS: RETIC # 69.3 MIL/L (20.0-150.0); RETIC % 1.6 % (0.4-3.0)
[2018-03-11 06:59] LABS: INTERNATIONAL NORMALIZED RATIO 1.5 RATIO
[2018-03-11 07:14] LABS: FREE T3 1.77 PG/ML (2.18-3.98); FREE T4 1.33 NG/DL (0.76-1.46)
--- NOTE | 2018-03-11 07:31 | MB ---
cc: Ellie Hutchinson MD,Nicki Bangura MD DATE: 03/10/2018 REFERRING PHYSICIAN: Dr. Paulino. REASON FOR CONSULTATION: Dr. Paulino requested consultation for Ms. Wilson regarding a decreased haptoglobin associated with anemia. HISTORY OF PRESENT ILLNESS: Ms. Wilson is a 68-year-old woman with multiple medical problems. She has evidence of liver cirrhosis by imaging study associated with portal hypertension, varices, ascites, moderate right pleural effusion with atelectasis of the lung base. She has had a recent paracentesis for tense ascites to alleviate her symptoms. She has had a colonoscopy that showed internal and external hemorrhoids. She denies any overt bleeding. During this hospitalization, she was noted to have a hemoglobin of 11.3. It trended down to 10.2. Haptoglobin is less than 10. LDH is normal at 238. She has not had any blood transfusion during this admission. Her last blood transfusion was for 2 units of packed red cells on 04/18/2017. Antibody screen back in December was negative. During the consultation, she reports that she had heavy chain disease. She was diagnosed with that condition. Review of the pathology shows no bone marrow biopsy. The peritoneal fluid from 03/06/2018 shows no malignant cells. There is no serum protein electrophoresis. Hepatitis panel is negative. Interestingly, CEA and alpha fetoprotein is normal. CA 19-9 is elevated at 49.7. Iron studies from 01/16/2018 show a ferritin of 6. On repeat during this admission, ferritin is 82. Urinalysis was negative for blood. Liver function shows hyperbilirubinemia with total bilirubin of 5.3, direct 1.7 and indirect 3.4. AST 48, ALT 22, alkaline phosphatase is 76. Ammonia level was less than 10. She complains of many symptoms such as generalized weakness, abdominal distention. She complains of constipation after her colonoscopy. She denies any significant alcohol use, until a year ago which she stopped completely. She has some mild shortness of breath with the ascites. Her appetite is decreased. She does not recall her symptoms that led to the diagnosis of heavy chain disease. PAST MEDICAL HISTORY: Diabetes, cirrhosis, portal hypertension, history of GI bleed, heavy chain disease diagnosed 11 months ago, transfusion requiring anemia, hematemesis. PAST SURGICAL HISTORY: , colonoscopy, cholecystectomy. FAMILY HISTORY: Father of a coronary event in his mid 50s. Mother of old age, Alzheimer's, but had a history of breast cancer. ALLERGIES: 1. ACETAMINOPHEN. 2. ASPIRIN. 3. CODEINE. 4. OXYCODONE. CURRENT MEDICATIONS: 1. Lactated Ringer's. 2. Metoprolol 3. Chlorhexidine. 4. Potassium chloride. 5. Rifaximin. 6. Spironolactone. 7. Lasix. 8. Vytorin. 9. Phytonadione. 10. Compazine p.r.n. PHYSICAL EXAMINATION: VITAL SIGNS: Temperature 97.6, heart rate 77, respiratory rate 17, blood pressure 96/53, saturation 97%. GENERAL: Ms. Wilson is a well-developed, slender, elderly woman. She is awake, alert, conversing. HEENT: Pupils are round, reactive to light and accommodation. Sclerae is anicteric. Oropharynx is clear. NECK: Supple. LUNGS: Clear. HEART: Reveals normal rate and rhythm. ABDOMEN: Distended. Fluid wave is noted. LOWER EXTREMITIES: No edema. NEUROLOGIC: Nonfocal. DIAGNOSTIC STUDIES: Labs as described above. ASSESSMENT AND PLAN: Ms. Wilson is a 68-year-old woman with a history of fatty liver, leading up to cirrhosis and portal hypertension. She has evidence of liver disease. Laboratory evaluation such as a prolonged PT, PTT, decrease in albumin will confirm a diagnosis of liver disease. Her ascites, her portal hypertension and internal and external hemorrhoids, all contribute to a risk of gastrointestinal bleed which she had back in December. Hematology/Oncology is consulted for the decrease in haptoglobin, which I suspect is related to underlying liver disease; most likely, she has severe liver disease and the production haptoglobin is low. Clinically, she does not appear to have hemolysis. Her hemoglobin has remained stable. Other markers of hemolysis such as the increased bilirubin is noted. Her LDH; however, is normal. I will check a Elissa test. It was negative previously in December. I will evaluate for Elissa negative anemia which would be in keeping with autoimmune hemolytic anemia contributing to anemia consuming the haptoglobin. Otherwise, the haptoglobin is due to underlying liver disease and no specific therapy is required. We discussed her light chain disease. I have no evidence of light chain disease that could be found. I will repeat a serum protein electrophoresis, quantitative immunoglobulin and free light chain analysis. We will followup on an outpatient basis. A bone marrow biopsy is deferred. Her questions were answered to her satisfaction. MD VIRGINIA Souza/ADORE , 01:43 PM , 02:16 PM
[2018-03-11] MEDS: INSULIN ASPART SUPPLEMENTAL SCALE SQ SCH ×4 (08:00→21:00)
--- NOTE | 2018-03-11 08:20 | HHI.PR ---
Subjective Remarks In bed says she feels very tired and considers hospice at home. Sasy belly is getting bigger again however denies having any pain . No n/v/d/c. Objective Vitals Vital Signs Date Time Temp Pulse Resp B/P (MAP) Pulse Ox O2 Delivery O2 Flow Rate FiO2 03/11/18 04:59 97.9 78 20 91/55 (67) 95 03/11/18 00:59 97.5 77 20 100/54 (69) 94 03/11/18 00:00 81 03/10/18 21:00 Room Air 03/10/18 20:59 97.8 75 20 113/71 (85) 96 03/10/18 20:00 77 03/10/18 18:03 21 03/10/18 16:17 97.7 72 18 101/61 (74) 97 03/10/18 16:00 Room Air 03/10/18 15:42 74 03/10/18 12:09 97.6 77 17 96/53 (67) 97 03/10/18 12:00 Room Air 03/10/18 11:30 74 I/O 03/10/18 03/10/18 03/10/18 03/11/18 03/11/18 03/11/18 07:00 15:00 23:00 07:00 15:00 23:00 Intake Total 480 ml 600 ml 221 ml Output Total 300 ml 600 ml Balance 480 ml 300 ml -379 ml Intake Oral 480 ml 600 ml 221 ml Output Urine Total 300 ml 600 ml # Voids 1 # Bowel Movements 0 Result Diagram: 03/07/18 0600 03/07/18 0600 Imaging Last Impressions Cyst Biopsy Asp-Paracentesis US 03/06/18 0000 Signed Impressions: Service Date/Time: Tuesday, March 06, 2018 08:01 - CONCLUSION: Uncomplicated ultrasound guided paracentesis. Nuno Mariano MD Abdomen/Pelvis CT 03/04/18 1449 Signed Impressions: Service Date/Time: Sunday, March 04, 2018 16:33 - CONCLUSION: 1. Severe liver cirrhosis with portal hypertension and varices as above. Severe ascites. 2. Moderate right effusion with compressive atelectasis at the right lung base. 3. Scattered colonic diverticulosis. Dashawn Lao MD Objective Remarks GENERAL: Patient appear chronically ill, appears older than stated age CARDIOVASCULAR: Normal rate and regular rhythm without murmurs, gallops, or rubs. RESPIRATORY: Good respiratory efforts. Breath sounds equal and clear to auscultation bilaterally. GASTROINTESTINAL: Abdomen still distended but much better compared to yesterday. Diffuse, mild discomfort to palpation. MUSCULOSKELETAL: Extremities without cyanosis, or edema. NEURO: Alert & Oriented x4 to person, place, time, situation. Moves all ext x4 PSYCH: Appropriate mood and affect. A/P Problem List: (1) Cirrhosis ICD Code: K74.60 - Unspecified cirrhosis of liver Status: Acute (2) Coagulopathy ICD Code: D68.9 - Coagulation defect, unspecified (3) Lactic acidosis ICD Code: E87.2 - Acidosis (4) DM (diabetes mellitus) ICD Code: E11.9 - Type 2 diabetes mellitus without complications Assessment and Plan 68-year-old female with: Cirrhosis: h/o Cirrhosis/Portal HTN per review of records from 12/2016, pt reports "this is the first time I've heard that", h/o GI Bleed requiring transfusion in 12/2016, however LEFT AMA prior to EGD at that time. Unclear etiology, denies alcohol abuse. However reports she used to drink socially in the past. 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 Total Bili 4.7, AST [address] Abd/Pelvis w/ extensive cirrhosis/portal HTN and varices and severe ascites. -Status post large-volume paracentesis. Ascites fluid studies pending. No signs of infection. Paracentesis (03/07/18) 5200 cc removed. SAAG 1.79. Culture negative. Cytology with mesothelial cells, lymphocytes, and macrophages. Negative for malignant cells. -GI following. Continue propranolol, Aldactone, Lasix, monitor I/O. Watch blood pressure closely. -Patient has had over 20 pound unintentional weight loss, CA-19-9 is also elevated. She never had a colonoscopy. Had colonoscopy 03/08 showed Diverticulosis in the sigmoid and descending colon. Internal and external hemorrhoids. Patient refused EGD Anemia H/H stable. LDH WNL and Haptoglobin low, hem/onc consulted. Seen by hematology who has ordered a further work up of the anemia. Coagulopathy/thrombocytopenia: secondary to above, INR 2.5 on presentation, improved with vitamin K, continue Vit K 5mg po qd, monitor closely for bleeding. Lactic Acidosis: Lactate 6.6, no signs of sepsis, likely due to dehydration from third spacing. Status post albumin. DM2: Hold Metformin, sliding scale w/ Accu-Cheks. Hypokalemia/hypomagnesemia: Replaced. Elevated TSH , check free t3 and free T4 DVT Prophylaxis: Pharmacologic contraindication secondary to coagulopathy/ thrombocytopenia Discharge Planning Likely needs SNF placement however patient requesting hospice consult as she would like to go home with hospice. Pending improvement and clearance by consultants Carlene Doyle MD March 11, 2018 08:20
--- NOTE | 2018-03-11 08:22 | HHI.FF ---
Face to Face Verification Diagnosis: (1) Symptomatic anemia (2) GI bleed (3) Ascites (4) Generalized weakness (5) Hypoglycemia (6) Cirrhosis (7) Pleural effusion (8) Lactic acidosis (9) Coagulopathy (10) DM (diabetes mellitus) Physical Therapy Order: Evaluate and Treat Home Health Nursing Order: Medical education Signs/symptoms of disease process CHF education Medication education-adverse effect Nursing assessment with vital signs I have seen patient Guera Wilson on 03/11/18. My clinical findings support the need for the requested home health care services because: Ltd mobility - disease progression Patient has SOB I certify that my clinical findings support that this patient is homebound because: Post-op weakness Carlene Doyle MD March 11, 2018 08:22
--- NOTE | 2018-03-11 08:22 | HHI.DS ---
Discharge Summary Admission Date March 04, 2018 at 17:35 Discharge Date: March 11, 2018 Admitting Diagnosis Severe ascites, pleural effusion, cirrhosis (1) Cirrhosis ICD Code: K74.60 - Unspecified cirrhosis of liver Status: Acute (2) Coagulopathy ICD Code: D68.9 - Coagulation defect, unspecified (3) Lactic acidosis ICD Code: E87.2 - Acidosis (4) DM (diabetes mellitus) ICD Code: E11.9 - Type 2 diabetes mellitus without complications Procedures none Brief History - From Admission This is a 68-year-old female with a PMH of DM and h/o GI Bleed who presented to the ER w/ abdominal distention and weakness x1 wk. No reported nausea, vomiting or diarrhea. 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 Pt is significantly poor historian w/ seemingly little insight into medical conditions and appears to be non- compliant w/ medical treatments/follow up. Recently discharged by PCP for non- compliance. Per review of medical records, pt w/ similar presentation and admission 01/15/17, had been sent for CT Abd/Pelvis by PCP however never got it done. Was admitted for GI Bleed at that time w/ Hgb 6 s/p transfusion, noted to have cirrhosis w/ ascites, had extensive work up and was to undergo EGD, however pt had episode of hypoxia and EGD re-scheduled, pt LEFT AMA prior to EGD being done. Labs from 01/16/17 w/ BRITNEY negative, Mitochondrial Ab negative, Anti-Sm Muscle Ab negative, Transglutamin IgG/IgA 1.8/<1.2, Hep Panel negative. Pt reports previous h/o Alcohol but states she drinks "only during bike week and only in [place]". On arrival, BP 124/75, HR 96, O2 sat 98% RA, Afebrile. Hemoglobin 11.3. Platelets 107, previously 75 on 01/17/2017. Chemistry essentially unremarkable. Lactic Acid 6.6. Total bilirubin 4.6. AST 49. Ammonia less than 10. Lipase 98. INR 2.3. Salicylate negative, alcohol negative. CT Abdomen/Pelvis severe liver cirrhosis with portal hypertension and varices, severe ascites, moderate right effusion with compressive atelectasis at right lung base. CBC/BMP: 03/07/18 0600 03/07/18 0600 Significant Findings Laboratory Tests Test 03/09/18 21:07 03/10/18 15:22 03/11/18 04:57 Haptoglobin LESS THAN 10 MG/DL (30-200) LESS THAN 10 MG/DL (30-200) Thyroid Stimulating Hormone 3rd Gen 4.120 uIU/ML (0.358-3.740) Immunoglobulin G Total 1700 MG/DL (650-1610) Immunoglobulin A 532 MG/DL (85-468) Prothrombin Time 15.0 SEC (9.8-11.6) Fibrinogen 106 mg/dL (227-377) Free Triiodothyronine (T3) pg/dL 1.77 PG/ML (2.18-3.98) Imaging Last Impressions Cyst Biopsy Asp-Paracentesis US 03/06/18 0000 Signed Impressions: Service Date/Time: Tuesday, March 06, 2018 08:01 - CONCLUSION: Uncomplicated ultrasound guided paracentesis. Nuno Mariano MD Abdomen/Pelvis CT 03/04/18 1449 Signed Impressions: Service Date/Time: Sunday, March 04, 2018 16:33 - CONCLUSION: 1. Severe liver cirrhosis with portal hypertension and varices as above. Severe ascites. 2. Moderate right effusion with compressive atelectasis at the right lung base. 3. Scattered colonic diverticulosis. Dashawn Lao MD PE at Discharge GENERAL: Patient appear chronically ill, appears older than stated age CARDIOVASCULAR: Normal rate and regular rhythm without murmurs, gallops, or rubs. RESPIRATORY: Good respiratory efforts. Breath sounds equal and clear to auscultation bilaterally. GASTROINTESTINAL: Abdomen still distended but much better compared to yesterday. Diffuse, mild discomfort to palpation. MUSCULOSKELETAL: Extremities without cyanosis, or edema. NEURO: Alert & Oriented x4 to person, place, time, situation. Moves all ext x4 PSYCH: Appropriate mood and affect. Hospital Course 68-year-old female with: Cirrhosis: h/o Cirrhosis/Portal HTN per review of records from 12/2016, pt reports "this is the first time I've heard that", h/o GI Bleed requiring transfusion in 12/2016, however LEFT AMA prior to EGD at that time. Unclear etiology, denies alcohol abuse. However reports she used to drink socially in the past. 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 Total Bili 4.7, AST [address] Abd/Pelvis w/ extensive cirrhosis/portal HTN and varices and severe ascites. -Status post large-volume paracentesis. Ascites fluid studies pending. No signs of infection. Paracentesis (03/07/18) 5200 cc removed. SAAG 1.79. Culture negative. Cytology with mesothelial cells, lymphocytes, and macrophages. Negative for malignant cells. -GI following. Continue propranolol, Aldactone, Lasix, monitor I/O. Watch blood pressure closely. -Patient has had over 20 pound unintentional weight loss, CA-19-9 is also elevated. She never had a colonoscopy. Had colonoscopy 03/08 showed Diverticulosis in the sigmoid and descending colon. Internal and external hemorrhoids. Patient refused EGD Anemia H/H stable. LDH WNL and Haptoglobin low, hem/onc consulted. Seen by hematology who has ordered a further work up of the anemia. Coagulopathy/thrombocytopenia: secondary to above, INR 2.5 on presentation, improved with vitamin K, continue Vit K 5mg po qd, monitor closely for bleeding. Lactic Acidosis: Lactate 6.6, no signs of sepsis, likely due to dehydration from third spacing. Status post albumin. DM2: Hold Metformin, sliding scale w/ Accu-Cheks. Hypokalemia/hypomagnesemia: Replaced. Elevated TSH , check free t3 and free T4 DVT Prophylaxis: Pharmacologic contraindication secondary to coagulopathy/ thrombocytopenia Discharge Planning Likely needs SNF placement however patient requesting hospice consult as she would like to go home with hospice. Pending improvement and clearance by consultants Discharge Instructions DIET: Follow Instructions for: Heart Healthy Diet, Diabetic Diet Activities you can perform: Regular-No Restrictions Follow up Referrals: Gastroenterology - 1 Week Oncology/Hematology - 1 Week PCP Follow-up - 2-3 Days New Medications: Walker with Front Wheels (Walker with Front Wheels) 1 Mis Mis EA .XX DIRECTED, #1 0 Refills Carlene Doyle MD March 11, 2018 08:22
[2018-03-11] MEDS: SODIUM CHLORIDE 0.9% FLUSH 10 ML FLUSH IV FLUSH SCH ×2 (08:32→21:22)
[2018-03-11] MEDS: FUROSEMIDE 40 MG TAB PO SCH (08:33)
[2018-03-11] MEDS: RIFAXIMIN 550 MG TAB PO SCH ×2 (08:33→21:21)
[2018-03-11] MEDS: PROPRANOLOL HCL 10 MG TAB PO SCH ×2 (08:34→21:21)
[2018-03-11] MEDS: SPIRONOLACTONE 50 MG TAB PO SCH (08:35)
[2018-03-11] MEDS: DOCUSATE SODIUM 50 MG/SENNA 8.6 MG TAB PO SCH ×2 (08:35→21:21)
[2018-03-11] MEDS: POTASSIUM CHLORIDE 10 MEQ CONTROLLED RELEASE TAB PO SCH (08:35)
[2018-03-11] MEDS: PHYTONADIONE 5 MG/SWFI 5 ML ORAL SYR PO SCH (08:36)
--- NOTE | 2018-03-11 10:00 | HHI.GIFU ---
Subjective Remarks Pt states she is feeling ok, she would like to get some sleep Reports some mild abdominal swelling, denies pain Denies nausea, vomiting (Rosy Moore) Objective Vitals I&O Vital Signs Date Time Temp Pulse Resp B/P (MAP) Pulse Ox O2 Delivery O2 Flow Rate FiO2 03/11/18 08:00 Room Air 03/11/18 08:00 97.5 75 18 105/67 (80) 96 03/11/18 04:59 97.9 78 20 91/55 (67) 95 03/11/18 00:59 97.5 77 20 100/54 (69) 94 03/11/18 00:00 81 03/10/18 21:00 Room Air 03/10/18 20:59 97.8 75 20 113/71 (85) 96 03/10/18 20:00 77 03/10/18 18:03 21 03/10/18 16:17 97.7 72 18 101/61 (74) 97 03/10/18 16:00 Room Air 03/10/18 15:42 74 03/10/18 12:09 97.6 77 17 96/53 (67) 97 03/10/18 12:00 Room Air 03/10/18 11:30 74 I/O 03/10/18 03/10/18 03/10/18 03/11/18 03/11/18 03/11/18 07:00 15:00 23:00 07:00 15:00 23:00 Intake Total 480 ml 600 ml 221 ml 240 ml Output Total 300 ml 600 ml Balance 480 ml 300 ml -379 ml 240 ml Intake Oral 480 ml 600 ml 221 ml 240 ml Output Urine Total 300 ml 600 ml # Voids 1 # Bowel Movements 0 Laboratory Laboratory Tests Test 03/10/18 15:22 03/11/18 04:57 Immunoglobulin G Total 1700 Immunoglobulin A 532 Immunoglobulin M 242 Blood Smear Pathologist Review Reticulocyte Count 1.6 Absolute Reticulocyte Count 69.3 Haptoglobin LESS THAN 10 Prothrombin Time 15.0 Prothromb Time International Ratio 1.5 Activated Partial Thromboplast Time 28.5 Fibrinogen 106 Total Protein 6.0 Free Thyroxine 1.33 Free Triiodothyronine (T3) pg/dL 1.77 Date/Time Source Procedure Growth Status 03/06/18 14:57 Fluid Peritoneal Fluid Gram Stain - Final Complete 03/06/18 14:57 Fluid Peritoneal Fluid Body Fluid Culture - Final NO GROWTH IN 72 HRS.--AEROBICALLY OR ... Complete Imaging Last Impressions Cyst Biopsy Asp-Paracentesis US 03/06/18 0000 Signed Impressions: Service Date/Time: Tuesday, March 06, 2018 08:01 - CONCLUSION: Uncomplicated ultrasound guided paracentesis. Nuno Mariano MD Abdomen/Pelvis CT 03/04/18 1449 Signed Impressions: Service Date/Time: Sunday, March 04, 2018 16:33 - CONCLUSION: 1. Severe liver cirrhosis with portal hypertension and varices as above. Severe ascites. 2. Moderate right effusion with compressive atelectasis at the right lung base. 3. Scattered colonic diverticulosis. Dashawn Lao MD Physical Exam HEENT: Normocephalic; atraumatic (+) icterus CHEST: Even/unlabored CARDIAC: RRR ABDOMEN: Distended, soft, bowel sounds active, nontender EXTREMITIES: No clubbing, cyanosis, or edema. SKIN: (+) jaundice PHOTOGRAPHER MODEL: Alert and oriented times three. (Rosy Moore) Assessment and Plan Assessment: (1) Ascites ICD Codes: R18.8 - Other ascites Status: Acute (2) Generalized weakness ICD Codes: R53.1 - Weakness Status: Acute (3) Cirrhosis ICD Codes: K74.60 - Unspecified cirrhosis of liver Status: Acute (4) Coagulopathy ICD Codes: D68.9 - Coagulation defect, unspecified Plan Assessment: - Cirrhosis, pt denies history of liver issues, states abdominal swelling and pain for the past 3-4 months. However, records reviewed from December 2016 notes this to be a prior diagnosis, pt seen by our service at that time for reports of GIB and new dx of cirrhosis, however left AMA prior to complete work up. Denies ETOH for the past year and states prior to that was just a social drinker. According to records admitted to heavy drinking in her 20s and 30s Thrombocytopenia (platelets-63) hypoalbuminemia (albumin 2.3) Coagulopathy (INR-1.9) Liver RUIZ: Hepatitis panel negative. BRITNEY and ASMA negative. Iron-82 TIBC-231 % sat-35.5 Ferritin-82 AFP-4.2 A1A-79 Ceruloplasmin-26 CT abdomen and pelvis W IV contrast (03/04) --> Severe liver cirrhosis with portal hypertension and varices as above. Severe ascites. Moderate right effusion with compressive atelectasis at the right lung base. Scattered colonic diverticulosis. - Decreased appetite- states this is because when she eats it causes worsening of the abdominal swelling - Unintentional weight loss- despite abdominal swelling CA19.9 elevated 49.7 Paracentesis (03/07/18) 5200 cc removed. SAAG 1.79. Culture negative. Cytology revealed may mesothelial cells, lymphocytes, and macrophages. Negative for malignant cells. Colonoscopy (03/08) --> Diverticulosis in the sigmoid and descending colon. Internal and external hemorrhoids. (03/10) Pt still refuses EGD. Her main complaint at this time is weakness, working with physical therapy. Denies nausea, vomiting. States abdominal pain has been mild since paracentesis. No BM since colonoscopy. H/H stable. LDH WNL and Haptoglobin low, pt seen by hematology who has ordered a further work up of the anemia. TSH elevated- not currently on Synthroid- replacement per attending (03/11) No significant changes, pt has no new complaints. Hematology following, states anemia likely secondary to liver disease but has ordered work up to rule out other causes. Plan Alpha 1 Antitrypsin phenotype pending Celiac panel pending Lasix Spironolactone Inderal Xifaxan Vitamin K Further recommendations based on clinical course Patient has been seen and examined by myself and Dr. Paulino and this note is written on her behalf (Rosy Moore) Rosy Moore March 11, 2018 10:00 Nicki Paulino MD March 11, 2018 18:47
[2018-03-11] MEDS ORDERED: WALKER WHEELS/F1 MIS (11:44)
[2018-03-11 11:51] LABS: CERULOPLASMIN 15 mg/dL (18-53)
[2018-03-11] MEDS ORDERED: traMADol HCL 50 MG TAB PO ONE (22:45)
[2018-03-12] VITALS (11 sets, daily range): BP systolic 85–121; BP diastolic 51–63; PULSE 68–78; RESP 13–18; TEMP 97–98.7; O2SAT 94–99
[2018-03-12] MEDS: INSULIN ASPART SUPPLEMENTAL SCALE SQ SCH ×4 (08:00→21:00)
[2018-03-12] MEDS: SODIUM CHLORIDE 0.9% FLUSH 10 ML FLUSH IV FLUSH SCH ×2 (09:00→21:31)
--- NOTE | 2018-03-12 09:06 | HHI.PR ---
Subjective Remarks Patient is unable to walk. Will be reevaluated by physical therapy with new recommendations. Declined by hospice. Patient says she feels weak today. Says belly is getting bigger again. However she does not have any abdominal pain. No fever or chills. Objective Vitals Vital Signs Date Time Temp Pulse Resp B/P (MAP) Pulse Ox O2 Delivery O2 Flow Rate FiO2 03/12/18 04:00 70 03/12/18 04:00 97.0 69 13 94/59 (71) 95 03/12/18 00:00 98.7 74 14 99/60 (73) 99 03/12/18 00:00 72 03/11/18 20:00 98.2 75 17 113/57 (75) 95 03/11/18 20:00 Room Air 03/11/18 16:00 97.9 73 18 106/69 (81) 94 03/11/18 12:01 21 03/11/18 12:00 97.9 74 18 98/55 (69) 95 I/O 03/11/18 03/11/18 03/11/18 03/12/18 03/12/18 03/12/18 07:00 15:00 23:00 07:00 15:00 23:00 Intake Total 221 ml 240 ml 480 ml Output Total 600 ml 450 ml Balance -379 ml 240 ml 30 ml Intake Oral 221 ml 240 ml 480 ml Output Urine Total 600 ml 450 ml # Voids 1 Imaging Last Impressions Cyst Biopsy Asp-Paracentesis US 03/06/18 0000 Signed Impressions: Service Date/Time: Tuesday, March 06, 2018 08:01 - CONCLUSION: Uncomplicated ultrasound guided paracentesis. Nuno Mariano MD Abdomen/Pelvis CT 03/04/18 1449 Signed Impressions: Service Date/Time: Sunday, March 04, 2018 16:33 - CONCLUSION: 1. Severe liver cirrhosis with portal hypertension and varices as above. Severe ascites. 2. Moderate right effusion with compressive atelectasis at the right lung base. 3. Scattered colonic diverticulosis. Dashawn Lao MD Objective Remarks GENERAL: Patient appear chronically ill, appears older than stated age CARDIOVASCULAR: Normal rate and regular rhythm without murmurs, gallops, or rubs. RESPIRATORY: Good respiratory efforts. Breath sounds equal and clear to auscultation bilaterally. GASTROINTESTINAL: Abdomen still distended but much better compared to yesterday. Diffuse, mild discomfort to palpation. MUSCULOSKELETAL: Extremities without cyanosis, or edema. NEURO: Alert & Oriented x4 to person, place, time, situation. Moves all ext x4 PSYCH: Appropriate mood and affect. Procedures none A/P Problem List: (1) Cirrhosis ICD Code: K74.60 - Unspecified cirrhosis of liver Status: Acute (2) Coagulopathy ICD Code: D68.9 - Coagulation defect, unspecified (3) Lactic acidosis ICD Code: E87.2 - Acidosis (4) DM (diabetes mellitus) ICD Code: E11.9 - Type 2 diabetes mellitus without complications Assessment and Plan 68-year-old female with: Cirrhosis: h/o Cirrhosis/Portal HTN per review of records from 12/2016, pt reports "this is the first time I've heard that", h/o GI Bleed requiring transfusion in 12/2016, however LEFT AMA prior to EGD at that time. Unclear etiology, denies alcohol abuse. However reports she used to drink socially in the past. 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 Total Bili 4.7, AST [address] Abd/Pelvis w/ extensive cirrhosis/portal HTN and varices and severe ascites. -Status post large-volume paracentesis. Ascites fluid studies pending. No signs of infection. Paracentesis (03/07/18) 5200 cc removed. SAAG 1.79. Culture negative. Cytology with mesothelial cells, lymphocytes, and macrophages. Negative for malignant cells. -GI following. Continue propranolol, Aldactone, Lasix, monitor I/O. Watch blood pressure closely. -Patient has had over 20 pound unintentional weight loss, CA-19-9 is also elevated. She never had a colonoscopy. Had colonoscopy 03/08 showed Diverticulosis in the sigmoid and descending colon. Internal and external hemorrhoids. Patient refused EGD Anemia H/H stable. LDH WNL and Haptoglobin low, hem/onc consulted. Seen by hematology who has ordered a further work up of the anemia. Coagulopathy/thrombocytopenia: secondary to above, INR 2.5 on presentation, improved with vitamin K, continue Vit K 5mg po qd, monitor closely for bleeding. Lactic Acidosis: Lactate 6.6, no signs of sepsis, likely due to dehydration from third spacing. Status post albumin. DM2: Hold Metformin, sliding scale w/ Accu-Cheks. Hypokalemia/hypomagnesemia: Replaced. Elevated TSH , check free t3 elevated and normal free T4 normal. recheck as OP later no need to start meds at this time. DVT Prophylaxis: Pharmacologic contraindication secondary to coagulopathy/ thrombocytopenia Discharge Planning Likely needs SNF placement however patient requesting hospice consult as she would like to go home with hospice. Declined by hospice. Evaluate the patient recommendations. Patient may need detention. Pending improvement and clearance by consultants Carlene Doyle MD March 12, 2018 09:06
[2018-03-12] MEDS: RIFAXIMIN 550 MG TAB PO SCH ×2 (09:26→21:31)
[2018-03-12] MEDS: SPIRONOLACTONE 50 MG TAB PO SCH (09:26)
[2018-03-12] MEDS: DOCUSATE SODIUM 50 MG/SENNA 8.6 MG TAB PO SCH ×2 (09:27→21:31)
[2018-03-12] MEDS: FUROSEMIDE 40 MG TAB PO SCH (09:27)
[2018-03-12] MEDS: POTASSIUM CHLORIDE 10 MEQ CONTROLLED RELEASE TAB PO SCH (09:27)
[2018-03-12] MEDS: PROPRANOLOL HCL 10 MG TAB PO SCH ×2 (09:27→21:31)
[2018-03-12] MEDS: PHYTONADIONE 5 MG/SWFI 5 ML ORAL SYR PO SCH (09:28)
--- NOTE | 2018-03-12 14:57 | HHI.GIFU ---
Subjective Remarks Pt has worsening abdominal swelling today Denies nausea, vomiting Tolerating PO (Rosy Moore) Objective Vitals I&O Vital Signs Date Time Temp Pulse Resp B/P (MAP) Pulse Ox O2 Delivery O2 Flow Rate FiO2 03/12/18 13:38 96 Room Air 03/12/18 13:38 69 03/12/18 10:11 96 21 03/12/18 10:02 68 03/12/18 09:35 94 Room Air 03/12/18 08:00 97.8 70 18 101/60 (74) 94 03/12/18 04:00 70 03/12/18 04:00 97.0 69 13 94/59 (71) 95 03/12/18 00:00 98.7 74 14 99/60 (73) 99 03/12/18 00:00 72 03/11/18 20:00 98.2 75 17 113/57 (75) 95 03/11/18 20:00 Room Air 03/11/18 16:00 97.9 73 18 106/69 (81) 94 I/O 03/11/18 03/11/18 03/11/18 03/12/18 03/12/18 03/12/18 07:00 15:00 23:00 07:00 15:00 23:00 Intake Total 221 ml 240 ml 480 ml Output Total 600 ml 450 ml Balance -379 ml 240 ml 30 ml Intake Oral 221 ml 240 ml 480 ml Output Urine Total 600 ml 450 ml # Voids 1 Laboratory Date/Time Source Procedure Growth Status 03/06/18 14:57 Fluid Peritoneal Fluid Gram Stain - Final Complete 03/06/18 14:57 Fluid Peritoneal Fluid Body Fluid Culture - Final NO GROWTH IN 72 HRS.--AEROBICALLY OR ... Complete Imaging Last Impressions Cyst Biopsy Asp-Paracentesis US 03/06/18 0000 Signed Impressions: Service Date/Time: Tuesday, March 06, 2018 08:01 - CONCLUSION: Uncomplicated ultrasound guided paracentesis. Nuno Mariano MD Abdomen/Pelvis CT 03/04/18 1449 Signed Impressions: Service Date/Time: Sunday, March 04, 2018 16:33 - CONCLUSION: 1. Severe liver cirrhosis with portal hypertension and varices as above. Severe ascites. 2. Moderate right effusion with compressive atelectasis at the right lung base. 3. Scattered colonic diverticulosis. Dashawn Lao MD Physical Exam HEENT: Normocephalic; atraumatic (+) icterus CHEST: Even/unlabored CARDIAC: RRR ABDOMEN: Distended, soft, bowel sounds active, nontender EXTREMITIES: No clubbing, cyanosis, or edema. 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 (Rosy Moore) Assessment and Plan Assessment: (1) Ascites ICD Codes: R18.8 - Other ascites Status: Acute (2) Generalized weakness ICD Codes: R53.1 - Weakness Status: Acute (3) Cirrhosis ICD Codes: K74.60 - Unspecified cirrhosis of liver Status: Acute (4) Coagulopathy ICD Codes: D68.9 - Coagulation defect, unspecified Plan Assessment: - Cirrhosis, pt denies history of liver issues, states abdominal swelling and pain for the past 3-4 months. However, records reviewed from December 2016 notes this to be a prior diagnosis, pt seen by our service at that time for reports of GIB and new dx of cirrhosis, however left AMA prior to complete work up. Denies ETOH for the past year and states prior to that was just a social drinker. According to records admitted to heavy drinking in her 20s and 30s Thrombocytopenia (platelets-63) hypoalbuminemia (albumin 2.3) Coagulopathy (INR-1.9) Liver RUIZ: Hepatitis panel negative. BRITNEY and ASMA negative. Iron-82 TIBC-231 % sat-35.5 Ferritin-82 AFP-4.2 A1A-79 Ceruloplasmin-26 CT abdomen and pelvis W IV contrast (03/04) --> Severe liver cirrhosis with portal hypertension and varices as above. Severe ascites. Moderate right effusion with compressive atelectasis at the right lung base. Scattered colonic diverticulosis. - Decreased appetite- states this is because when she eats it causes worsening of the abdominal swelling - Unintentional weight loss- despite abdominal swelling CA19.9 elevated 49.7 Paracentesis (03/07/18) 5200 cc removed. SAAG 1.79. Culture negative. Cytology revealed may mesothelial cells, lymphocytes, and macrophages. Negative for malignant cells. Colonoscopy (03/08) --> Diverticulosis in the sigmoid and descending colon. Internal and external hemorrhoids. (03/10) Pt still refuses EGD. Her main complaint at this time is weakness, working with physical therapy. Denies nausea, vomiting. States abdominal pain has been mild since paracentesis. No BM since colonoscopy. H/H stable. LDH WNL and Haptoglobin low, pt seen by hematology who has ordered a further work up of the anemia. TSH elevated- not currently on Synthroid- replacement per attending (03/11) No significant changes, pt has no new complaints. Hematology following, states anemia likely secondary to liver disease but has ordered work up to rule out other causes. (03/12) Increase in abdominal swelling today. Denies nausea, vomiting. Celiac panel and alpha-1 antitrypsin phenotype pending. Plan Repeat paracentesis Alpha 1 Antitrypsin phenotype pending Celiac panel pending Lasix Spironolactone Inderal Xifaxan Vitamin K Further recommendations based on clinical course Patient has been seen and examined by myself and Dr. Paulino and this note is written on her behalf (Rosy Moore) Rosy Moore March 12, 2018 14:57 Nicki Paulino MD March 12, 2018 18:17
[2018-03-13] VITALS (13 sets, daily range): BP systolic 90–102; BP diastolic 52–64; PULSE 67–79; RESP 17–20; TEMP 97.8–98.2; O2SAT 94–97
[2018-03-13] MEDS: INSULIN ASPART SUPPLEMENTAL SCALE SQ SCH ×4 (07:44→21:00)
[2018-03-13] MEDS: SODIUM CHLORIDE 0.9% FLUSH 10 ML FLUSH IV FLUSH SCH ×2 (07:45→21:24)
[2018-03-13] MEDS: RIFAXIMIN 550 MG TAB PO SCH ×2 (07:45→21:25)
[2018-03-13] MEDS: FUROSEMIDE 40 MG TAB PO SCH (07:46)
[2018-03-13] MEDS: PROPRANOLOL HCL 10 MG TAB PO SCH ×2 (07:46→21:00)
[2018-03-13] MEDS: DOCUSATE SODIUM 50 MG/SENNA 8.6 MG TAB PO SCH ×2 (07:46→21:00)
[2018-03-13] MEDS: POTASSIUM CHLORIDE 10 MEQ CONTROLLED RELEASE TAB PO SCH (07:47)
[2018-03-13] MEDS: PHYTONADIONE 5 MG/SWFI 5 ML ORAL SYR PO SCH (07:48)
--- NOTE | 2018-03-13 08:29 | HHI.PR ---
Subjective Remarks In nad. No n/v/d/c. Denies chest pain or sob. Says she feels very weak. She cant walk much PT recommends SNF Belly is gettign bigger and tight again. Plan for therapeutic paracentesis. Objective Vitals Vital Signs Date Time Temp Pulse Resp B/P (MAP) Pulse Ox O2 Delivery O2 Flow Rate FiO2 03/13/18 04:00 98.0 75 20 102/64 (77) 94 03/13/18 04:00 Room Air 03/13/18 03:53 70 03/13/18 00:00 98.0 72 18 98/54 (69) 94 03/13/18 00:00 Room Air 03/12/18 23:45 69 03/12/18 20:05 72 03/12/18 20:00 97.7 72 18 85/51 (62) 96 03/12/18 20:00 Room Air 03/12/18 16:49 69 03/12/18 16:49 96 Room Air 03/12/18 16:00 97.5 78 18 121/63 (82) 96 03/12/18 13:38 96 Room Air 03/12/18 13:38 69 03/12/18 10:11 96 21 03/12/18 10:02 68 03/12/18 09:35 94 Room Air I/O 03/12/18 03/12/18 03/12/18 03/13/18 03/13/18 03/13/18 07:00 15:00 23:00 07:00 15:00 23:00 Intake Total 480 ml Balance 480 ml Intake Oral 480 ml # Voids 1 # Bowel Movements 2 Imaging Last Impressions Cyst Biopsy Asp-Paracentesis US 03/06/18 0000 Signed Impressions: Service Date/Time: Tuesday, March 06, 2018 08:01 - CONCLUSION: Uncomplicated ultrasound guided paracentesis. Nuno Mariano MD Abdomen/Pelvis CT 03/04/18 1449 Signed Impressions: Service Date/Time: Sunday, March 04, 2018 16:33 - CONCLUSION: 1. Severe liver cirrhosis with portal hypertension and varices as above. Severe ascites. 2. Moderate right effusion with compressive atelectasis at the right lung base. 3. Scattered colonic diverticulosis. Dashawn Lao MD Objective Remarks GENERAL: Patient appear chronically ill, appears older than stated age CARDIOVASCULAR: Normal rate and regular rhythm without murmurs, gallops, or rubs. RESPIRATORY: Good respiratory efforts. Breath sounds equal and clear to auscultation bilaterally. GASTROINTESTINAL: Abdomen still distended but much better compared to yesterday. Diffuse, mild discomfort to palpation. MUSCULOSKELETAL: Extremities without cyanosis, or edema. NEURO: Alert & Oriented x4 to person, place, time, situation. Moves all ext x4 PSYCH: Appropriate mood and affect. Procedures none A/P Problem List: (1) Cirrhosis ICD Code: K74.60 - Unspecified cirrhosis of liver Status: Acute (2) Coagulopathy ICD Code: D68.9 - Coagulation defect, unspecified (3) Lactic acidosis ICD Code: E87.2 - Acidosis (4) DM (diabetes mellitus) ICD Code: E11.9 - Type 2 diabetes mellitus without complications Assessment and Plan 68-year-old female with: Cirrhosis: h/o Cirrhosis/Portal HTN per review of records from 12/2016, pt reports "this is the first time I've heard that", h/o GI Bleed requiring transfusion in 12/2016, however LEFT AMA prior to EGD at that time. Unclear etiology, denies alcohol abuse. However reports she used to drink socially in the past. 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 Total Bili 4.7, AST [address] Abd/Pelvis w/ extensive cirrhosis/portal HTN and varices and severe ascites. -Status post large-volume paracentesis. Ascites fluid studies pending. No signs of infection. Paracentesis (03/07/18) 5200 cc removed. SAAG 1.79. Culture negative. Cytology with mesothelial cells, lymphocytes, and macrophages. Negative for malignant cells. -GI following. Continue propranolol, Aldactone, Lasix, monitor I/O. Watch blood pressure closely. -Patient has had over 20 pound unintentional weight loss, CA-19-9 is also elevated. She never had a colonoscopy. Had colonoscopy 03/08 showed Diverticulosis in the sigmoid and descending colon. Internal and external hemorrhoids. Patient refused EGD Anemia H/H stable. LDH WNL and Haptoglobin low, hem/onc consulted. Seen by hematology who has ordered a further work up of the anemia. Coagulopathy/thrombocytopenia: secondary to above, INR 2.5 on presentation, improved with vitamin K, continue Vit K 5mg po qd, monitor closely for bleeding. Lactic Acidosis: Lactate 6.6, no signs of sepsis, likely due to dehydration from third spacing. Status post albumin. DM2: Hold Metformin, sliding scale w/ Accu-Cheks. Hypokalemia/hypomagnesemia: Replaced. Elevated TSH , check free t3 elevated and normal free T4 normal. recheck as OP later no need to start meds at this time. DVT Prophylaxis: Pharmacologic contraindication secondary to coagulopathy/ thrombocytopenia Discharge Planning PT recommends SNF placement. CM is ff for DC to SNF. Declined by hospice. S/p repeat paracentesis 03/13 Carlene Doyle MD March 13, 2018 08:29
[2018-03-13] MEDS: SPIRONOLACTONE 50 MG TAB PO SCH (09:13)
[2018-03-13] MEDS ORDERED: XIFA550T4 PO (09:32)
[2018-03-13] MEDS ORDERED: SPIR25TA PO (09:32)
[2018-03-13] MEDS ORDERED: PROP10TA6 PO (09:32)
[2018-03-13] MEDS ORDERED: FURO40TA PO (09:32)
[2018-03-13] MEDS ORDERED: LIDOCAINE HCL 1% 20 ML VIAL SQ ONE (15:16)
--- NOTE | 2018-03-13 15:22 | RADRPT ---
EXAM DATE/TIME: 03/13/2018 12:01 [facility] COMPARISON: US GUIDED ABD PARACENTESIS, March 06, 2018, 8:01. INDICATIONS : Ascities. MEDICAL HISTORY : Gastroesophageal reflux disease. Arthritis. Diabetes mellitus type 2. Dyspnea. SURGICAL HISTORY : Cholecystectomy section. ENCOUNTER: Subsequent ACUITY: 1 month PAIN SCORE: 3/10 LOCATION: Abdomen. FLUID: Total volume of 6300 cc of clear, yellow fluid was removed. Fluid was discarded. Paracentesis was therapeutic only. Post procedure scanning reveals no hematoma or other complication. TECHNIQUE: 1. Ultrasound guidance for abdominal paracentesis. 2. Paracentesis. The risks, benefits, and alternatives to ultrasound guided paracentesis were explained to the patient in detail including the risk of bleeding and infection. Written and verbal informed consent was obt ained. With the patient on the ultrasound table, ultrasound imaging was used to select the most appropriate approach for paracentesis. Overlying skin was prepped and draped in the usual sterile fashion and wi th a local anesthetic, a dermatotomy was made with an 11 blade scalpel. A 6 [place] [id number] ca theter was introduced into the peritoneal cavity and fluid was collected. The patient tolerated the procedure well and left the ultrasound suite in stable condition. CONCLUSION: Uncomplicated ultrasound guided paracentesis. Dallin Jay MD on March 13, 2018 at 15:19 Board Certified Radiologist. This report was verified electronically.
[2018-03-14] VITALS (12 sets, daily range): BP systolic 98–108; BP diastolic 54–64; PULSE 69–79; RESP 16–18; TEMP 97.7–98.6; O2SAT 95–97
[2018-03-14 03:50] LABS: ENDOMYSIAL AB SCREEN ND (NEGATIVE); ENDOMYSIAL AB TITER ND (<1:5)
[2018-03-14] MEDS: INSULIN ASPART SUPPLEMENTAL SCALE SQ SCH ×4 (08:00→21:22)
[2018-03-14] MEDS: FUROSEMIDE 40 MG TAB PO SCH (08:55)
[2018-03-14] MEDS: RIFAXIMIN 550 MG TAB PO SCH ×2 (08:55→21:20)
[2018-03-14] MEDS: SPIRONOLACTONE 50 MG TAB PO SCH (08:55)
[2018-03-14] MEDS: POTASSIUM CHLORIDE 10 MEQ CONTROLLED RELEASE TAB PO SCH (08:55)
[2018-03-14] MEDS: PROPRANOLOL HCL 10 MG TAB PO SCH ×2 (08:55→21:20)
[2018-03-14] MEDS: DOCUSATE SODIUM 50 MG/SENNA 8.6 MG TAB PO SCH ×2 (08:56→21:00)
[2018-03-14] MEDS: PHYTONADIONE 5 MG/SWFI 5 ML ORAL SYR PO SCH (08:56)
[2018-03-14] MEDS: SODIUM CHLORIDE 0.9% FLUSH 10 ML FLUSH IV FLUSH SCH ×2 (08:56→21:21)
--- NOTE | 2018-03-14 09:59 | HHI.PR ---
Subjective Remarks She is in bed sleepy. Says she has no pain in her belly and feels much better after paracentesis. No fever or chills. No n/v/d/c. Says she feels tired and thinks "a blood transfusion will help as did help last time". However HGB is stable and no need for transfusion. Objective Vitals Vital Signs Date Time Temp Pulse Resp B/P (MAP) Pulse Ox O2 Delivery O2 Flow Rate FiO2 03/14/18 08:09 97.9 72 17 108/61 (77) 96 03/14/18 08:00 Room Air 03/14/18 04:00 97.7 74 16 106/58 (74) 96 03/14/18 04:00 Room Air 03/14/18 03:53 71 03/14/18 00:00 97.8 69 16 98/54 (69) 97 03/14/18 00:00 Room Air 03/13/18 23:55 67 03/13/18 20:01 72 03/13/18 20:00 Room Air 03/13/18 20:00 90/52 (65) 03/13/18 20:00 97.8 72 17 97 03/13/18 17:01 96 Room Air 03/13/18 17:01 71 03/13/18 16:00 98.2 78 18 90/58 (69) 96 03/13/18 12:41 95 Room Air 03/13/18 12:41 79 03/13/18 12:00 97.9 73 18 96/56 (69) 97 I/O 03/13/18 03/13/18 03/13/18 03/14/18 03/14/18 03/14/18 07:00 15:00 23:00 07:00 15:00 23:00 Intake Total 480 ml 650 ml Output Total 600 ml Balance 480 ml 50 ml Intake Oral 480 ml 650 ml Output Urine Total 600 ml # Voids 4 # Bowel Movements 3 Imaging Last Impressions Cyst Biopsy Asp-Paracentesis US 03/13/18 0000 Signed Impressions: Service Date/Time: Tuesday, March 13, 2018 12:01 - CONCLUSION: Uncomplicated ultrasound guided paracentesis. Dallin Jay MD Abdomen/Pelvis CT 03/04/18 1449 Signed Impressions: Service Date/Time: Sunday, March 04, 2018 16:33 - CONCLUSION: 1. Severe liver cirrhosis with portal hypertension and varices as above. Severe ascites. 2. Moderate right effusion with compressive atelectasis at the right lung base. 3. Scattered colonic diverticulosis. Dashawn Lao MD Objective Remarks GENERAL: Patient appear chronically ill, appears older than stated age CARDIOVASCULAR: Normal rate and regular rhythm without murmurs, gallops, or rubs. RESPIRATORY: Good respiratory efforts. Breath sounds equal and clear to auscultation bilaterally. GASTROINTESTINAL: Abdomen still distended but much better compared to yesterday. Diffuse, mild discomfort to palpation. MUSCULOSKELETAL: Extremities without cyanosis, or edema. NEURO: Alert & Oriented x4 to person, place, time, situation. Moves all ext x4 PSYCH: Appropriate mood and affect. Procedures none A/P Problem List: (1) Cirrhosis ICD Code: K74.60 - Unspecified cirrhosis of liver Status: Acute (2) Coagulopathy ICD Code: D68.9 - Coagulation defect, unspecified (3) Lactic acidosis ICD Code: E87.2 - Acidosis (4) DM (diabetes mellitus) ICD Code: E11.9 - Type 2 diabetes mellitus without complications Assessment and Plan 68-year-old female with: Cirrhosis: h/o Cirrhosis/Portal HTN per review of records from 12/2016, pt reports "this is the first time I've heard that", h/o GI Bleed requiring transfusion in 12/2016, however LEFT AMA prior to EGD at that time. Unclear etiology, denies alcohol abuse. However reports she used to drink socially in the past. 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 Total Bili 4.7, AST [address] Abd/Pelvis w/ extensive cirrhosis/portal HTN and varices and severe ascites. -Status post large-volume paracentesis. Ascites fluid studies pending. No signs of infection. Paracentesis (03/07/18) 5200 cc removed. SAAG 1.79. Culture negative. Cytology with mesothelial cells, lymphocytes, and macrophages. Negative for malignant cells. -GI following. Continue propranolol, Aldactone, Lasix, monitor I/O. Watch blood pressure closely. -Patient has had over 20 pound unintentional weight loss, CA-19-9 is also elevated. She never had a colonoscopy. Had colonoscopy 03/08 showed Diverticulosis in the sigmoid and descending colon. Internal and external hemorrhoids. Patient refused EGD Anemia H/H stable. LDH WNL and Haptoglobin low, hem/onc consulted. Seen by hematology who has ordered a further work up of the anemia. Coagulopathy/thrombocytopenia: secondary to above, INR 2.5 on presentation, improved with vitamin K, continue Vit K 5mg po qd, monitor closely for bleeding. Lactic Acidosis: Lactate 6.6, no signs of sepsis, likely due to dehydration from third spacing. Status post albumin. DM2: Hold Metformin, sliding scale w/ Accu-Cheks. Hypokalemia/hypomagnesemia: Replaced. Elevated TSH , check free t3 elevated and normal free T4 normal. recheck as OP later no need to start meds at this time. DVT Prophylaxis: Pharmacologic contraindication secondary to coagulopathy/ thrombocytopenia Discharge Planning PT recommends SNF placement. CM is ff for DC to SNF. Declined by hospice. S/p repeat paracentesis 03/13 HGB is stable Plan to DC to SNF when cleared by hem/onc Carlene Doyle MD March 14, 2018 09:59
--- NOTE | 2018-03-14 10:37 | PD.ONC.PN ---
Subjective Subjective Remarks Afebrile overnight. Patient resting in bed in nad. wants to know if she can have a blood transfusion. she states the last time she had a blood transfusion everything felt better for a few months. Objective Data Date Time Temp Pulse Resp B/P (MAP) Pulse Ox O2 Delivery O2 Flow Rate FiO2 03/14/18 08:09 97.9 72 17 108/61 (77) 96 03/14/18 08:00 Room Air 03/14/18 04:00 97.7 74 16 106/58 (74) 96 03/14/18 04:00 Room Air 03/14/18 03:53 71 03/14/18 00:00 97.8 69 16 98/54 (69) 97 03/14/18 00:00 Room Air 03/13/18 23:55 67 03/13/18 20:01 72 03/13/18 20:00 Room Air 03/13/18 20:00 90/52 (65) 03/13/18 20:00 97.8 72 17 97 03/13/18 17:01 96 Room Air 03/13/18 17:01 71 03/13/18 16:00 98.2 78 18 90/58 (69) 96 03/13/18 12:41 95 Room Air 03/13/18 12:41 79 03/13/18 12:00 97.9 73 18 96/56 (69) 97 03/14/18 03/14/18 03/14/18 07:00 15:00 23:00 Intake Total 650 ml Output Total 600 ml Balance 50 ml Administered Medications Medications (Trade) Dose Ordered Sig/Kike Route PRN Reason Start Time Stop Time Status Last Admin Dose Admin Sodium Chloride (NS Flush) 2 ml BID IV FLUSH 03/04/18 21:00 03/14/18 08:56 Senna/Docusate Sodium (Skylar-Colace) 1 tab BID PO 03/04/18 21:00 03/12/18 21:31 Prochlorperazine Edisylate (Compazine Inj) 5 mg Q6H PRN IV PUSH NAUSEA/VOMITING 03/04/18 19:30 03/09/18 18:02 Propranolol HCl (Inderal) 10 mg Q12HR PO 03/04/18 21:00 03/14/18 08:55 Spironolactone (Aldactone) 50 mg DAILY PO 03/05/18 09:00 03/14/18 08:55 Furosemide (Lasix) 40 mg DAILY PO 03/05/18 09:00 03/14/18 08:55 Insulin Aspart (NovoLOG SUPPLEMENTAL SCALE) 1 ACHS SLIDING SCALE SQ 03/04/18 21:00 03/13/18 21:00 Phytonadione (Mephyton Liq) 5 mg DAILY PO 03/05/18 09:00 03/14/18 08:56 Rifaximin (Xifaxan) 550 mg BID PO 03/05/18 21:00 03/14/18 08:55 Potassium Chloride (KCl) 30 meq DAILY PO 03/06/18 09:00 03/14/18 08:55 Objective Remarks GENERAL: Pleasant elderly female, sitting up in bed in [facility]. SKIN: Warm and dry. HEAD: Normocephalic. EYES: No injection or drainage. NECK: Supple, trachea midline. CARDIOVASCULAR: Regular rate and rhythm RESPIRATORY: Breath sounds equal bilaterally. No accessory muscle use. GASTROINTESTINAL: Abdomen distended with ascites. EXTREMITIES: No cyanosis NEUROLOGICAL: awake and alert. normal speech. moving extremities. Assessment/Plan Problem List: (1) Symptomatic anemia ICD Codes: D64.9 - Anemia, unspecified Status: Acute Plan: --SPEP pending. --iron studies show no iron deficiency --clarisa negative, no evidence of hemolysis. Assessment 68y/o female with anemia h/o liver cirrhosis associated with portal hypertension, varices, ascites, moderate right pleural effusion with atelectasis of the lung base. S recent colonoscopy that showed internal and external hemorrhoids. h/o heavy chain disease Plan 1. check CBC today 2. await SPEP 3. continue supportive care Lani Jung March 14, 2018 10:37
[2018-03-14 11:21] LABS: AUTOMATED NEUTROPHIL # 2.4 TH/MM3 (1.8-7.7); BASOPHIL # 0.1 TH/MM3 (0-0.2); BASOPHIL % 1.1 % (0.0-2.0); EOSINOPHIL # 0.1 TH/MM3 (0-0.4); EOSINOPHIL % 2.2 % (0.0-4.0); HEMATOCRIT 33.1 % (35.0-46.0); HEMOGLOBIN 10.7 GM/DL (11.6-15.3); LYMPH % 33.9 % (9.0-44.0); LYMPHOCYTE # 1.7 TH/MM3 (1.0-4.8); MEAN CELL VOLUME 75.5 FL (80.0-100.0); MEAN CORPUSCULAR HEMOGLOBIN 24.3 PG (27.0-34.0); MEAN CORPUSCULAR HGB CONC 32.3 % (32.0-36.0); MEAN PLATELET VOLUME 9.1 FL (7.0-11.0); MONO % 15.6 % (0.0-8.0); MONOCYTE # 0.8 TH/MM3 (0-0.9); NEUT % 47.2 % (16.0-70.0); PLATELET COUNT 116 TH/MM3 (150-450); RED BLOOD COUNT 4.39 MIL/MM3 (4.00-5.30); RED CELL DISTRIBUTION WIDTH 35.8 % (11.6-17.2)
[2018-03-14 11:36] LABS: ALBUMIN 2.2 GM/DL (3.4-5.0); BICARBONATE 18.9 MEQ/L (21.0-32.0); CALCIUM 8.2 MG/DL (8.5-10.1); CREATININE 0.66 MG/DL (0.50-1.00); DIRECT BILIRUBIN ADULT 1.5 MG/DL (0.0-0.2)
[2018-03-14 11:39] LABS: INDIRECT BILIRUBIN 2.1 MG/DL (0.0-0.8); TOTAL BILIRUBIN ADULT 3.6 MG/DL (0.2-1.0)
[2018-03-14 12:47] LABS: OVALOCYTES 1+ (NORMAL); TARGET CELLS 1+ (NORMAL)
--- NOTE | 2018-03-14 14:51 | HHI.GIFU ---
Subjective Remarks Pt refusing to answer any questions, states she urinated on the floor because no one came in (Rosy Moore) Objective Vitals I&O Vital Signs Date Time Temp Pulse Resp B/P (MAP) Pulse Ox O2 Delivery O2 Flow Rate FiO2 03/14/18 12:09 98.6 71 17 106/64 (78) 96 03/14/18 12:00 73 03/14/18 08:09 97.9 72 17 108/61 (77) 96 03/14/18 08:00 75 03/14/18 08:00 Room Air 03/14/18 04:00 97.7 74 16 106/58 (74) 96 03/14/18 04:00 Room Air 03/14/18 03:53 71 03/14/18 00:00 97.8 69 16 98/54 (69) 97 03/14/18 00:00 Room Air 03/13/18 23:55 67 03/13/18 20:01 72 03/13/18 20:00 Room Air 03/13/18 20:00 90/52 (65) 03/13/18 20:00 97.8 72 17 97 03/13/18 17:01 96 Room Air 03/13/18 17:01 71 03/13/18 16:00 98.2 78 18 90/58 (69) 96 I/O 03/13/18 03/13/18 03/13/18 03/14/18 03/14/18 03/14/18 06:59 14:59 22:59 06:59 14:59 22:59 Intake Total 480 ml 650 ml Output Total 600 ml Balance 480 ml 50 ml Intake Oral 480 ml 650 ml Output Urine Total 600 ml # Voids 4 # Bowel Movements 3 Laboratory Laboratory Tests Test 03/14/18 10:50 White Blood Count 5.0 Red Blood Count 4.39 Hemoglobin 10.7 Hematocrit 33.1 Mean Corpuscular Volume 75.5 Mean Corpuscular Hemoglobin 24.3 Mean Corpuscular Hemoglobin Concent 32.3 Red Cell Distribution Width 35.8 Platelet Count 116 Mean Platelet Volume 9.1 Neutrophils (%) (Auto) 47.2 Lymphocytes (%) (Auto) 33.9 Monocytes (%) (Auto) 15.6 Eosinophils (%) (Auto) 2.2 Basophils (%) (Auto) 1.1 Neutrophils # (Auto) 2.4 Lymphocytes # (Auto) 1.7 Monocytes # (Auto) 0.8 Eosinophils # (Auto) 0.1 Basophils # (Auto) 0.1 CBC Comment AUTO DIFF Differential Comment AUTO DIFF CONFIRMED Platelet Estimate LOW Platelet Morphology Comment NORMAL Target Cells 1+ Ovalocytes 1+ Blood Urea Nitrogen 8 Creatinine 0.66 Random Glucose 154 Total Protein 6.0 Albumin 2.2 Calcium Level 8.2 Alkaline Phosphatase 123 Aspartate Amino Transf (AST/SGOT) 47 Alanine Aminotransferase (ALT/SGPT) 34 Total Bilirubin 3.6 Direct Bilirubin 1.5 Sodium Level 135 Potassium Level 4.1 Chloride Level 104 Carbon Dioxide Level 18.9 Anion Gap 12 Estimat Glomerular Filtration Rate 89 Indirect Bilirubin 2.1 Date/Time Source Procedure Growth Status 03/06/18 14:57 Fluid Peritoneal Fluid Gram Stain - Final Complete 03/06/18 14:57 Fluid Peritoneal Fluid Body Fluid Culture - Final NO GROWTH IN 72 HRS.--AEROBICALLY OR ... Complete Imaging Last Impressions Cyst Biopsy Asp-Paracentesis US 03/13/18 0000 Signed Impressions: Service Date/Time: Tuesday, March 13, 2018 12:01 - CONCLUSION: Uncomplicated ultrasound guided paracentesis. Dallin Jay MD Abdomen/Pelvis CT 03/04/18 1449 Signed Impressions: Service Date/Time: Sunday, March 04, 2018 16:33 - CONCLUSION: 1. Severe liver cirrhosis with portal hypertension and varices as above. Severe ascites. 2. Moderate right effusion with compressive atelectasis at the right lung base. 3. Scattered colonic diverticulosis. Dashawn Loa MD Physical Exam HEENT: Normocephalic; atraumatic (+) icterus CHEST: Even/unlabored CARDIAC: RRR ABDOMEN: Distended, soft, bowel sounds active, nontender EXTREMITIES: No clubbing, cyanosis, or edema. 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 (Rosy Moore) Assessment and Plan Assessment: (1) Ascites ICD Codes: R18.8 - Other ascites Status: Acute (2) Generalized weakness ICD Codes: R53.1 - Weakness Status: Acute (3) Cirrhosis ICD Codes: K74.60 - Unspecified cirrhosis of liver Status: Acute (4) Coagulopathy ICD Codes: D68.9 - Coagulation defect, unspecified Plan Assessment: - Cirrhosis, pt denies history of liver issues, states abdominal swelling and pain for the past 3-4 months. However, records reviewed from December 2016 notes this to be a prior diagnosis, pt seen by our service at that time for reports of GIB and new dx of cirrhosis, however left AMA prior to complete work up. Denies ETOH for the past year and states prior to that was just a social drinker. According to records admitted to heavy drinking in her 20s and 30s Thrombocytopenia (platelets-63) hypoalbuminemia (albumin 2.3) Coagulopathy (INR-1.9) Liver RUIZ: Hepatitis panel negative. BRITNEY and ASMA negative. Iron-82 TIBC-231 % sat-35.5 Ferritin-82 AFP-4.2 A1A-79 Ceruloplasmin-26 CT abdomen and pelvis W IV contrast (03/04) --> Severe liver cirrhosis with portal hypertension and varices as above. Severe ascites. Moderate right effusion with compressive atelectasis at the right lung base. Scattered colonic diverticulosis. - Decreased appetite- states this is because when she eats it causes worsening of the abdominal swelling - Unintentional weight loss- despite abdominal swelling CA19.9 elevated 49.7 Paracentesis (03/07/18) 5200 cc removed. SAAG 1.79. Culture negative. Cytology revealed may mesothelial cells, lymphocytes, and macrophages. Negative for malignant cells. Colonoscopy (03/08) --> Diverticulosis in the sigmoid and descending colon. Internal and external hemorrhoids. (03/10) Pt still refuses EGD. Her main complaint at this time is weakness, working with physical therapy. Denies nausea, vomiting. States abdominal pain has been mild since paracentesis. No BM since colonoscopy. H/H stable. LDH WNL and Haptoglobin low, pt seen by hematology who has ordered a further work up of the anemia. TSH elevated- not currently on Synthroid- replacement per attending (03/11) No significant changes, pt has no new complaints. Hematology following, states anemia likely secondary to liver disease but has ordered work up to rule out other causes. (03/12) Increase in abdominal swelling today. Denies nausea, vomiting. Celiac panel and alpha-1 antitrypsin phenotype pending. (03/14) No significant changes. A1A phenotype is still pending. Celiac panel negative Repeat paracentesis --> 6300 fluid removed. Plan Alpha 1 Antitrypsin phenotype pending Lasix Spironolactone Inderal Xifaxan Vitamin K If work up negative consider liver biopsy Further recommendations based on clinical course Patient has been seen and examined by myself and Dr. Charlton and this note is written on his behalf (Rosy Moore) Physician Comments Patient seen and examined Agree with above Continue with current supportive care Monitor labs (Kirby Charlton MD) Rosy Moore March 14, 2018 14:51 Kirby Charlton MD March 14, 2018 22:18
--- NOTE | 2018-03-14 15:30 | PD.CONS ---
Consult Service Palliative Care Consult Requested By Dr. Doyle. Primary Care Physician Onofre Soliz M.D. Reason for Consultation a. To assist with evaluation and management of symptoms including: Ascites, debility. b. To assist medical decision maker(s) with: better understanding of current medical conditions; weighing benefits/burdens of medical treatment options; making medical treatment decisions. . HPI History of Present Illness Ms. Wilson is a 68-year-old female with a medical history significant for severe liver cirrhosis with portal hypertension, diabetes mellitus types 2, history of GI bleed and history of noncompliance with medications or treatments. Patient presented to emergency room on 03/04/18 via EMS endorsing generalized weakness and abdominal distention, worsened during the prior week. Patient reporting a fall secondary to weakness. CT of the abdomen revealed severe liver cirrhosis with portal hypertension and varices, severe ascites, moderate right effusion with compressive atelectasis at the right lung base and scattered colonic diverticulosis. Laboratory workup revealed WBC 4.3, Hgb 11.3 , platelet count 107. BUN/creatinine 18/0.96, albumin 2.5. ABG with venous pH 7.49, venous PO2 21, HCO3 15. Patient was admitted for further management. GI was consulted. Patient will report a weight loss of approximately 30 pounds who presented with severe ascites. Previous hospitalization in December 2016 secondary to hematemesis, bloating and abdominal pain. During that admission, patient left AMA before any treatment was completed. Patient declined EGD but underwent colonoscopy on 03/08/18, internal and external hemorrhoids noted. Patient underwent paracentesis on 03/06/18 with removal of 5.2 L of peritoneal fluid. Hematology, Dr. Hutchinson consulted on 03/11/18, hemoglobin trending down to 10.2 from 11.3, haptoglobin less than 10. Hepatitis panel negative. Decrease haptoglobin most likely secondary to severe liver disease. Patient underwent second paracentesis on 03/13/18 removing 6.3 L of peritoneal fluid. Peritoneal fluid culture 03/06 with no growth in 72 hours. Palliative care consulted for further clarifications of goals of care. Hospice was consulted over the weekend. Case discussed with hospice admissions nurse Lisa. Patient declined hospice in favor of aggressive care, nursing home facility. Patient seen in her room, she was resting in bed in no acute distress. Alert and oriented x self, place and situation. Patient afebrile, stable hemodynamically. Tolerating room air with oxygen saturation in the mid 90s. Laboratory workup revealing WBC 5.0, Hgb stable at 10.7. In this first visit, reviewed the role of palliative care in advanced illness in regards to symptom management as well as support surrounding goals of care and advance care planning. Patient receptive to visit. Obtained past medical history and psychosocial history. Reviewed events leading to this hospitalization, clinical course and current medical management. Patient endorsing feeling somewhat better than the previous days. Verbalized being eager to be discharged to nursing home facility for rehabilitation. Patient residing independently, some assistance from neighbors and her son, however, son lives out of state. Patient tells me that hospice philosophy and benefits have been reviewed, declining hospice at this time in favor of rehabilitation and aggressive management. No advance directives completed, introduced advanced directives and living will information. Patient verbalized being interested in completing advanced directives, however, requesting for forms to be left at bedside for further review and completion. CODE STATUS addressed, reviewed risks, benefits and limitations of CPR, intubation and medical intubation. Patient confirmed full CODE STATUS. Patient receptive to palliative care follow -up for advanced directives completion. . Function/Cognitive Trajectory Patient residing alone in private home. Reports being fully independent with ADLs. Ambulating with wheeled walker. No cognitive deficit reported. . Review of Systems Constitutional: COMPLAINS OF: Fatigue, DENIES: Fever Endocrine: DENIES: Abnorml menstrual pattern Eyes: DENIES: Vision loss, Double Vision Ears, nose, mouth, throat: DENIES: Hearing loss, Nasal discharge, Oral lesions , Running Nose Respiratory: COMPLAINS OF: Shortness of breath, DENIES: Cough, Hemoptysis Cardiovascular: COMPLAINS OF: Dyspnea on Exertion, DENIES: Chest pain, Lower Extremity Edema Gastrointestinal: COMPLAINS OF: Abdominal pain, DENIES: Bloody stools, Nausea, Vomiting, Difficulty Swallowing Genitourinary: DENIES: Urinary incontinence, Hematuria Musculoskeletal: COMPLAINS OF: Back pain, DENIES: Stiffness Integumentary: DENIES: Pruritus, Rash Hematologic/Lymphatics: COMPLAINS OF: Bruising Immunologic/Allergic: DENIES: Eczema Neurologic: DENIES: Abnormal gait, Localized weakness, Seizures, Speech Problems, Poor Balance Psychiatric: COMPLAINS OF: Anxiety, Mood changes, Depression, DENIES: Confusion , Agitation Past Family Social History Coded Allergies: acetaminophen (Unverified Allergy, Severe, 06/08/17) aspirin (Unverified Allergy, Severe, 06/08/17) codeine (Unverified Allergy, Severe, 06/08/17) oxycodone (Unverified Allergy, Severe, 06/08/17) Past Medical History Severe liver cirrhosis with portal hypertension Diabetes mellitus type 2 Diverticulitis Osteoarthritis GERD History of GI bleed Medication noncompliance Past Surgical History Cholecystectomy . Reported Medications Furosemide 40 Mg Tab 40 Mg PO DAILY Xifaxan (Rifaximin) 550 Mg Tab 550 Mg PO BID Propranolol (Propranolol HCl) 10 Mg Tab 10 Mg PO Q12HR Spironolactone 25 Mg Tab 50 Mg PO DAILY Lasix (Furosemide) 20 Mg Tab 20 Mg PO DAILY Metformin (Metformin HCl) 500 Mg Tab 1,000 Mg PO BIDPC . Current Medications Medications (Trade) Dose Ordered Sig/Kike Route Start Time Stop Time Status Last Admin (NS Flush) 2 ml UNSCH PRN IV FLUSH 03/04/18 18:15 (NS Flush) 2 ml BID IV FLUSH 03/04/18 21:00 03/14/18 08:56 (Narcan Inj) 0.4 mg UNSCH PRN IV PUSH 03/04/18 18:15 (Skylar-Colace) 1 tab BID PO 03/04/18 21:00 03/12/18 21:31 (Milk Of Magnesia Liq) 30 ml Q12H PRN PO 03/04/18 18:15 (Senokot) 17.2 mg Q12H PRN PO 03/04/18 18:15 (Dulcolax Supp) 10 mg DAILY PRN RECTAL 03/04/18 18:15 (Lactulose Liq) 30 ml DAILY PRN PO 03/04/18 18:15 (Compazine Inj) 5 mg Q6H PRN IV PUSH 03/04/18 19:30 03/09/18 18:02 (Inderal) 10 mg Q12HR PO 03/04/18 21:00 03/14/18 08:55 (Aldactone) 50 mg DAILY PO 03/05/18 09:00 03/14/18 08:55 (Lasix) 40 mg DAILY PO 03/05/18 09:00 03/14/18 08:55 (D50w (Vial) Inj) 50 ml UNSCH PRN IV PUSH 03/04/18 19:30 (Glucagon Inj) 1 mg UNSCH PRN OTHER 03/04/18 19:30 (NovoLOG SUPPLEMENTAL SCALE) 1 ACHS SLIDING SCALE SQ 03/04/18 21:00 03/14/18 12:46 (Mephyton Liq) 5 mg DAILY PO 03/05/18 09:00 03/14/18 08:56 (Xifaxan) 550 mg BID PO 03/05/18 21:00 03/14/18 08:55 (KCl) 30 meq DAILY PO 03/06/18 09:00 03/14/18 08:55 Family History Cousin with liver cirrhosis secondary to EtOH . Substance Use Tobacco: Denies. Alcohol: Social use. Reports history of heavy drinking in her 20s and 30s. Prescription med abuse: Denies. Illicits: History of cocaine use in the 70s. Psychosocial History Originally from [place]. . Has 1 son who lives out of state. 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 Spiritual/Cultural Factors Worship aldo. . Living Will: Never completed Health Care Surrogate: Never completed Durable Power of Cadet Deck: Never completed Health Care Surrogate(s): Advanced directives not completed. As per [place] statue, healthcare proxy decision maker is patient's only son Gunnar Brewster. Patient is . . Today's verbally stated goals: Aggressive management to include full code. . Family/friends goals: No family during my visit. . Ethical and Legal Issues No ethical legal issues identified. . Physical Exam Vital Signs Date Time Temp Pulse Resp B/P (MAP) Pulse Ox O2 Delivery O2 Flow Rate FiO2 03/14/18 12:09 98.6 71 17 106/64 (78) 96 03/14/18 12:00 73 03/14/18 08:09 97.9 72 17 108/61 (77) 96 03/14/18 08:00 75 03/14/18 08:00 Room Air 03/14/18 04:00 97.7 74 16 106/58 (74) 96 03/14/18 04:00 Room Air 03/14/18 03:53 71 03/14/18 00:00 97.8 69 16 98/54 (69) 97 03/14/18 00:00 Room Air 03/13/18 23:55 67 03/13/18 20:01 72 03/13/18 20:00 Room Air 03/13/18 20:00 90/52 (65) 03/13/18 20:00 97.8 72 17 97 03/13/18 17:01 96 Room Air 03/13/18 17:01 71 03/13/18 16:00 98.2 78 18 90/58 (69) 96 Exam CONSTITUTIONAL/GENERAL: This is a thin female resting in bed in no apparent distress. TUBES/LINES/DRAINS: PIV. SKIN: No jaundice, rashes, or lesions. Ecchymoses on upper extremities. No wounds seen anteriorly. Skin temperature appropriate. Not diaphoretic. HEAD: Atraumatic. Normocephalic. EYES: Pupils equal and round and reactive. Extraocular motions intact. No scleral icterus. No injection or drainage. ENT: Hearing grossly normal. Nose without bleeding or purulent drainage. Moist oral mucosa. NECK: Trachea midline. Supple, nontender. CARDIOVASCULAR: Regular rate and rhythm. Peripheral pulses symmetric. RESPIRATORY/CHEST: Symmetric, unlabored respirations. Clear to auscultation. Breath sounds equal bilaterally. No wheezes, rales, or rhonchi. GASTROINTESTINAL: Abdomen soft, distended, tender right upper quadrant. Hepatomegaly. Bowel sounds present. GENITOURINARY: Without palpable bladder distension. MUSCULOSKELETAL: Extremities without clubbing, cyanosis, or edema. No mottling or clubbing. NEUROLOGICAL: Awake and alert. Motor and sensory grossly within normal limits. Follows commands. Cognitively sharp. Moves all extremities. PSYCHIATRIC: Calm. Flat affect. . Diagnostic Tests Laboratory Laboratory Tests Test 03/14/18 10:50 White Blood Count 5.0 TH/MM3 (4.0-11.0) Red Blood Count 4.39 MIL/MM3 (4.00-5.30) Hemoglobin 10.7 GM/DL (11.6-15.3) Hematocrit 33.1 % (35.0-46.0) Mean Corpuscular Volume 75.5 FL (80.0-100.0) Mean Corpuscular Hemoglobin 24.3 PG (27.0-34.0) Mean Corpuscular Hemoglobin Concent 32.3 % (32.0-36.0) Red Cell Distribution Width 35.8 % (11.6-17.2) Platelet Count 116 TH/MM3 (150-450) Mean Platelet Volume 9.1 FL (7.0-11.0) Neutrophils (%) (Auto) 47.2 % (16.0-70.0) Lymphocytes (%) (Auto) 33.9 % (9.0-44.0) Monocytes (%) (Auto) 15.6 % (0.0-8.0) Eosinophils (%) (Auto) 2.2 % (0.0-4.0) Basophils (%) (Auto) 1.1 % (0.0-2.0) Neutrophils # (Auto) 2.4 TH/MM3 (1.8-7.7) Lymphocytes # (Auto) 1.7 TH/MM3 (1.0-4.8) Monocytes # (Auto) 0.8 TH/MM3 (0-0.9) Eosinophils # (Auto) 0.1 TH/MM3 (0-0.4) Basophils # (Auto) 0.1 TH/MM3 (0-0.2) CBC Comment AUTO DIFF Differential Comment AUTO DIFF CONFIRMED Platelet Estimate LOW (NORMAL) Platelet Morphology Comment NORMAL (NORMAL) Target Cells 1+ (NORMAL) Ovalocytes 1+ (NORMAL) Blood Urea Nitrogen 8 MG/DL (7-18) Creatinine 0.66 MG/DL (0.50-1.00) Random Glucose 154 MG/DL (74-106) Total Protein 6.0 GM/DL (6.4-8.2) Albumin 2.2 GM/DL (3.4-5.0) Calcium Level 8.2 MG/DL (8.5-10.1) Alkaline Phosphatase 123 U/L (45-117) Aspartate Amino Transf (AST/SGOT) 47 U/L (15-37) Alanine Aminotransferase (ALT/SGPT) 34 U/L (10-53) Total Bilirubin 3.6 MG/DL (0.2-1.0) Direct Bilirubin 1.5 MG/DL (0.0-0.2) Sodium Level 135 MEQ/L (136-145) Potassium Level 4.1 MEQ/L (3.5-5.1) Chloride Level 104 MEQ/L (98-107) Carbon Dioxide Level 18.9 MEQ/L (21.0-32.0) Anion Gap 12 MEQ/L (5-15) Estimat Glomerular Filtration Rate 89 ML/MIN (>89) Indirect Bilirubin 2.1 MG/DL (0.0-0.8) Result Diagram: 03/14/18 1050 03/14/18 1050 Microbiology Microbiology Date/Time Source Procedure Growth Status 03/06/18 14:57 Fluid Peritoneal Fluid Gram Stain - Final Complete 03/06/18 14:57 Fluid Peritoneal Fluid Body Fluid Culture - Final NO GROWTH IN 72 HRS.--AEROBICALLY OR ... Complete Imaging Last Impressions Cyst Biopsy Asp-Paracentesis US 03/13/18 0000 Signed Impressions: Service Date/Time: Tuesday, March 13, 2018 12:01 - CONCLUSION: Uncomplicated ultrasound guided paracentesis. Dallin Jay MD Abdomen/Pelvis CT 03/04/18 1449 Signed Impressions: Service Date/Time: Sunday, March 04, 2018 16:33 - CONCLUSION: 1. Severe liver cirrhosis with portal hypertension and varices as above. Severe ascites. 2. Moderate right effusion with compressive atelectasis at the right lung base. 3. Scattered colonic diverticulosis. Dashawn Lao MD Procedures * 03/06/18 -paracentesis removing 5.2L * 03/13/18 -paracentesis removing 6.3L . Patient/Family Conference Present at Family Conference: No family at bedside. Patient only. Family Conference Time (mins): 45 Family Conference Location: Bedside Issues Discussed: * Palliative care role, purpose, approach * Additional medical, psychosocial, and spiritual history * Patients general health, functional status, and cognitive changes in the months leading up to the current hospitalization * Patient/family understanding of the current medical problems * Patient/family understanding of prognosis * Patients goals of care as best understood from advance directives and/or conversations and/or values * Current medical treatment options and benefits/burdens of those options * Likely scenarios comparing ongoing aggressive care with a transition to comfort measures only * Questions answered to the best of my ability * Palliative care contact information provided * Risks, benefits and limitations of CPR, intubation mechanical ventilation * Hospice philosophy and benefits * Living will, designation of healthcare surrogate information . Assessment and Plan Disease Oriented Problem List: (1) Liver cirrhosis (2) Portal hypertension (3) Ascites (4) DM (diabetes mellitus) (5) Pleural effusion (6) Unintended weight loss (7) Generalized weakness Symptom Scale: (1) Shortness of breath 0-10 Scale: Unable to quantify (2) Debility 0-10 Scale: Unable to quantify Pertinent Non-Medical Issues Psychosocial: Originally from [place]. . Has 1 son who lives out of state. 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 Spiritual: Worship aldo. Legal: No advance directives completed. Ethical issues impacting care: No ethical issues identified. . Important Contacts Son/healthcare proxy Ney Maher . . Prognosis Ms. Wilson is a 68-year-old female with a medical history significant for severe liver cirrhosis with portal hypertension, diabetes mellitus types 2, history of GI bleed and history of noncompliance with medications or treatments. Patient presented to emergency room on 03/04/18 via EMS endorsing generalized weakness and abdominal distention, worsened during the prior week. Patient underwent 2 thoracentesis removing over 5 L of fluid each time. Patient endorsing progressive decline and poor activity tolerance. She remains at high risk for further decompensation, acute events and . . Code Status: Full Code Plan * CODE STATUS: Full code. Risks, benefits and limitations of CPR, intubation and mechanical ventilation discussed with patient. * HEALTHCARE DECISION-MAKING: Patient participated in medical decision making. She appears to have a fair understanding of her clinical condition, appears to retain the ability to weigh benefits versus burdens of treatment options. No advanced directives completed. As per [place] statue, healthcare proxy decision making falls to patient's only son Ney Maher. Patient is . * GOALS OF CARE: Patient electing to pursue aggressive management to include full code. Goal is to discharge to nursing home facility for physical rehabilitation, ultimate goal to return home to independent living. Hospice philosophy and benefits reviewed, hospice consulted over the weekend. Patient declined services. However, appears receptive to hospice should her clinical condition worsen, or in the setting of additional decline or increased symptom burden. * SYMPTOMS: =Dyspnea: Secondary to pleural effusions, ascites. Verbalizing and shortness of breath has much improved after paracentesis, currently tolerating room air. = Debility: Progressive secondary to burden of disease. Patient with severe liver cirrhosis. Electing to discharge to nursing home facility for rehabilitation. * Advance directives to include living will and designation of healthcare surrogate forms left at patient's bedside as per her request. Palliative care will follow up for assistance with completion. * Palliative care contact information has been provided to patient. * Palliative care will continue to follow up for further clarification of goals of care as patient's clinical course continues to evolve. . Time Spent Total Floor Time (mins): 62 (Total time to include review and summarization of available medical records to include prior hospitalizations, physical exam, goals of care conversation with patient, assistance with information on advance directives.) >50% Counseling/Coord of Care: Yes Thank you for the opportunity to participate in the care of Ms. Wilson. Attestation To help prompt me to consider important information that might be impacting today's encounter and assessment, information from prior notes written by myself or my colleagues may have been "brought forward" into today's note. My signature on this note, however, is an attestation that I personally performed the exam, history, and/or decision-making noted today, and, unless otherwise indicated, the interactions with patient, family, and staff as well as the review of records all occurred today. I also attest that the listed assessment and stated plan reflect my best clinical judgment today based on the combination of historical information, prior notes, and today's exam/ interactions. When time spent is documented, it refers only to time spent today by the signer, or if indicated, combined time spent today by collaborating physician/nurse practitioner. Carlita Mares March 14, 2018 15:30
--- NOTE | 2018-03-14 18:45 | RADRPT ---
EXAM DATE/TIME: 03/14/2018 18:18 [facility] COMPARISON: No previous studies available for comparison. INDICATIONS : Right knee pain after fall today. MEDICAL HISTORY : Gastroesophageal reflux disease. Arthritis. Diabetes mellitus type 2. Dyspnea. SURGICAL HISTORY : Cholecystectomy. section. ENCOUNTER: Initial ACUITY: 1 day PAIN SCORE: 6/10 LOCATION: Right knee. FINDINGS: 2 views of the knee show joint space narrowing with periarticular sclerotic change and osteophyte pro duction. No fracture or dislocation. No joint effusion. Soft tissues are unremarkable. Osteopenia. CONCLUSION: Osteoarthritis and osteopenia. No acute abnormality. Hadley Roberts Jr., MD on March 14, 2018 at 18:42 Board Certified Radiologist. This report was verified electronically.
--- NOTE | 2018-03-14 18:45 | RADRPT ---
EXAM DATE/TIME: 03/14/2018 18:24 [facility] COMPARISON: No previous studies available for comparison. INDICATIONS : Left knee pain after fall today. MEDICAL HISTORY : Gastroesophageal reflux disease. Arthritis. Diabetes mellitus type 2. Dyspnea. SURGICAL HISTORY : Cholecystectomy section. ENCOUNTER: Initial ACUITY: 2 days PAIN SCORE: 7/10 LOCATION: Left knee. FINDINGS: Four view examination of the left knee demonstrates no evidence of fracture or dislocation. Bony min eralization is reduced. The articular surfaces are intact. The suprapatellar soft tissues have a no rmal configuration. CONCLUSION: Osteopenia. No acute abnormality. Hadley Roberts Jr., MD on March 14, 2018 at 18:43 Board Certified Radiologist. This report was verified electronically.
[2018-03-15] VITALS (10 sets, daily range): BP systolic 94–110; BP diastolic 55–71; PULSE 71–101; RESP 16–18; TEMP 97.5–98.2; O2SAT 95–97
[2018-03-15] MEDS: INSULIN ASPART SUPPLEMENTAL SCALE SQ SCH ×4 (07:40→21:00)
[2018-03-15 07:47] LABS: BASOPHIL % 0.7 % (0.0-2.0); EOSINOPHIL # 0.1 TH/MM3 (0-0.4); EOSINOPHIL % 1.5 % (0.0-4.0); HEMATOCRIT 35.7 % (35.0-46.0); HEMOGLOBIN 11.7 GM/DL (11.6-15.3); LYMPH % 32.2 % (9.0-44.0); LYMPHOCYTE # 1.9 TH/MM3 (1.0-4.8); MEAN CELL VOLUME 76.3 FL (80.0-100.0); MEAN CORPUSCULAR HGB CONC 32.7 % (32.0-36.0); MEAN PLATELET VOLUME 8.8 FL (7.0-11.0); MONO % 15.1 % (0.0-8.0); MONOCYTE # 0.9 TH/MM3 (0-0.9); NEUT % 50.5 % (16.0-70.0); PLATELET COUNT 117 TH/MM3 (150-450); RED BLOOD COUNT 4.68 MIL/MM3 (4.00-5.30); RED CELL DISTRIBUTION WIDTH 36.9 % (11.6-17.2); WHITE BLOOD COUNT 5.9 TH/MM3 (4.0-11.0)
[2018-03-15 08:24] LABS: ALBUMIN 2.2 GM/DL (3.4-5.0); ALKALINE PHOSPHATASE 133 U/L (45-117); ALT (GPT) 36 U/L (10-53); AST (GOT) 70 U/L (15-37); BICARBONATE 18.1 MEQ/L (21.0-32.0); BLOOD UREA NITROGEN 8 MG/DL (7-18); CALCIUM 8.2 MG/DL (8.5-10.1); CHLORIDE 105 MEQ/L (98-107); CREATININE 0.59 MG/DL (0.50-1.00); GLOMERULAR FILTRATION RATE 101 ML/MIN (>89); GLUCOSE,RANDOM 75 MG/DL (74-106); MAGNESIUM 1.8 MG/DL (1.5-2.5); SODIUM (NA) 135 MEQ/L (136-145); TOTAL BILIRUBIN ADULT 3.8 MG/DL (0.2-1.0); TOTAL PROTEIN 6.7 GM/DL (6.4-8.2)
[2018-03-15 08:54] LABS: KERATOCYTES OCC (NORMAL); TARGET CELLS 1+ (NORMAL)
[2018-03-15 08:55] LABS: OVALOCYTES 1+ (NORMAL)
[2018-03-15] MEDS: DOCUSATE SODIUM 50 MG/SENNA 8.6 MG TAB PO SCH ×2 (08:58→21:00)
[2018-03-15] MEDS: PROPRANOLOL HCL 10 MG TAB PO SCH ×2 (09:00→21:00)
[2018-03-15] MEDS: POTASSIUM CHLORIDE 10 MEQ CONTROLLED RELEASE TAB PO SCH (09:00)
[2018-03-15] MEDS: RIFAXIMIN 550 MG TAB PO SCH ×2 (09:01→21:05)
[2018-03-15] MEDS: FUROSEMIDE 40 MG TAB PO SCH (09:01)
[2018-03-15] MEDS: SPIRONOLACTONE 50 MG TAB PO SCH (09:01)
[2018-03-15] MEDS: SODIUM CHLORIDE 0.9% FLUSH 10 ML FLUSH IV FLUSH SCH ×2 (09:02→21:06)
[2018-03-15] MEDS: PHYTONADIONE 5 MG/SWFI 5 ML ORAL SYR PO SCH (09:02)
--- NOTE | 2018-03-15 10:54 | HHI.PR ---
Subjective Remarks Refusing snf discussed wt length with the patient. She wants to go home however she is not able to walk fell yesterday and hurt her right knee No fever or chills. Hallucinating at times per nurse, Will check ammonia level. Objective Vitals Vital Signs Date Time Temp Pulse Resp B/P (MAP) Pulse Ox O2 Delivery O2 Flow Rate FiO2 03/15/18 09:00 100/62 (75) 03/15/18 08:00 Room Air 03/15/18 05:15 97.9 74 16 94/55 (68) 95 03/15/18 04:00 Room Air 03/15/18 03:56 76 03/15/18 00:58 98.2 76 16 100/61 (74) 96 03/15/18 00:04 71 03/15/18 00:00 Room Air 03/14/18 22:15 98.0 77 16 101/62 (75) 95 03/14/18 20:10 79 03/14/18 20:00 Room Air 03/14/18 17:34 96 21 03/14/18 16:07 98.4 73 18 99/57 (71) 96 03/14/18 16:00 69 03/14/18 12:09 98.6 71 17 106/64 (78) 96 03/14/18 12:00 73 I/O 03/14/18 03/14/18 03/14/18 03/15/18 03/15/18 03/15/18 07:00 15:00 23:00 07:00 15:00 23:00 Intake Total 650 ml 600 ml 240 ml Output Total 600 ml Balance 50 ml 600 ml 240 ml Intake Oral 650 ml 600 ml 240 ml Output Urine Total 600 ml # Voids 3 4 # Bowel Movements 3 0 0 Result Diagram: 03/15/18 0525 03/15/18 0525 Imaging Last Impressions Knee X-Ray 03/14/18 0000 Signed Impressions: Service Date/Time: Wednesday, March 14, 2018 18:18 - CONCLUSION: Osteoarthritis and osteopenia. No acute abnormality. Hadley Rboerts Jr., MD Cyst Biopsy Asp-Paracentesis US 03/13/18 0000 Signed Impressions: Service Date/Time: Tuesday, March 13, 2018 12:01 - CONCLUSION: Uncomplicated ultrasound guided paracentesis. Dallin Jay MD Abdomen/Pelvis CT 03/04/18 9450 Signed Impressions: Service Date/Time: Sunday, March 04, 2018 16:33 - CONCLUSION: 1. Severe liver cirrhosis with portal hypertension and varices as above. Severe ascites. 2. Moderate right effusion with compressive atelectasis at the right lung base. 3. Scattered colonic diverticulosis. Dashawn Lao MD Objective Remarks GENERAL: Patient appear chronically ill, appears older than stated age CARDIOVASCULAR: Normal rate and regular rhythm without murmurs, gallops, or rubs. RESPIRATORY: Good respiratory efforts. Breath sounds equal and clear to auscultation bilaterally. GASTROINTESTINAL: Abdomen still distended but much better compared to yesterday. Diffuse, mild discomfort to palpation. MUSCULOSKELETAL: Extremities without cyanosis, or edema. NEURO: Alert & Oriented x4 to person, place, time, situation. Moves all ext x4 PSYCH: Appropriate mood and affect. Procedures none A/P Problem List: (1) Cirrhosis ICD Code: K74.60 - Unspecified cirrhosis of liver Status: Acute (2) Coagulopathy ICD Code: D68.9 - Coagulation defect, unspecified (3) Lactic acidosis ICD Code: E87.2 - Acidosis (4) DM (diabetes mellitus) ICD Code: E11.9 - Type 2 diabetes mellitus without complications Assessment and Plan 68-year-old female with: Cirrhosis: h/o Cirrhosis/Portal HTN per review of records from 12/2016, pt reports "this is the first time I've heard that", h/o GI Bleed requiring transfusion in 12/2016, however LEFT AMA prior to EGD at that time. Unclear etiology, denies alcohol abuse. However reports she used to drink socially in the past. 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 Total Bili 4.7, AST [address] Abd/Pelvis w/ extensive cirrhosis/portal HTN and varices and severe ascites. -Status post large-volume paracentesis. Ascites fluid studies pending. No signs of infection. Paracentesis (03/07/18) 5200 cc removed. SAAG 1.79. Culture negative. Cytology with mesothelial cells, lymphocytes, and macrophages. Negative for malignant cells. -GI following. Continue propranolol, Aldactone, Lasix, monitor I/O. Watch blood pressure closely. -Patient has had over 20 pound unintentional weight loss, CA-19-9 is also elevated. She never had a colonoscopy. Had colonoscopy 03/08 showed Diverticulosis in the sigmoid and descending colon. Internal and external hemorrhoids. Patient refused EGD With hallucinations. Consult psych for eval Will check ammonia levels and give lactulose if elevated Anemia H/H stable. LDH WNL and Haptoglobin low, hem/onc consulted. Seen by hematology who has ordered a further work up of the anemia. Coagulopathy/thrombocytopenia: secondary to above, INR 2.5 on presentation, improved with vitamin K, continue Vit K 5mg po qd, monitor closely for bleeding. Lactic Acidosis: Lactate 6.6, no signs of sepsis, likely due to dehydration from third spacing. Status post albumin. DM2: Hold Metformin, sliding scale w/ Accu-Cheks. Hypokalemia/hypomagnesemia: Replaced. Elevated TSH , check free t3 elevated and normal free T4 normal. recheck as OP later no need to start meds at this time. DVT Prophylaxis: Pharmacologic contraindication secondary to coagulopathy/ thrombocytopenia Discharge Planning PT recommends SNF placement. CM is ff for DC to SNF. Declined by hospice as patient want more PT and aggressive care, however she is refusing care. S/p repeat paracentesis 03/13 HGB is stable Plan to DC to SNF when cleared by hem/onc . However she is also refusing SNF now. PT daily until deemed safe for DC home. patient can't walk and with multiple falls not safe for DC home. Consult psych for Carlene Gabriel MD March 15, 2018 10:54
--- NOTE | 2018-03-15 11:51 | HHI.HCPN ---
Reason for visit a. To assist with evaluation and management of symptoms including: Ascites, debility. b. To assist medical decision maker(s) with: better understanding of current medical conditions; weighing benefits/burdens of medical treatment options; making medical treatment decisions. . Subjective/Interval History Follow-up for clarification of goals of care, assistance with advance directives. Patient seen in her room, resting in bed in no acute distress. Endorsing feeling better than yesterday, remains easily fatigued with any activity. Reports that her appetite has improved. Denies pain, shortness of breath or abdominal discomfort during my visit. Patient remains afebrile, stable hemodynamically. Tolerating room air. Laboratory today revealing stable hemoglobin 11.7. bilateral knees x-ray 03/14/18, left knee revealing osteoarthritis and osteopenia, right knee with osteopenia. Patient reports that she has declined discharge to prison facility for rehab, wishing to be discharged home. She tells me that her neighbor Bev will assist her with any needs. Reviewed living will document hand healthcare surrogate designation, the patient verbalized not being ready to have advanced directives completed. She will take home for further review. Case discussed with bedside RN Moraima. . Family/friend interactions No family at bedside. . Advance Directives Living Will: Never completed Health Care Surrogate: Never completed Durable Power of Sports Internship: Never completed Advance Directive Specifics Health Care Surrogate(s): Advanced directives not completed. As per [place] statue, healthcare proxy decision maker is patient's only son Gunnar Brewster. Patient is . . Significant change in goals: Goals of therapy remain aggressive. . Objective Vital Signs Date Time Temp Pulse Resp B/P (MAP) Pulse Ox O2 Delivery O2 Flow Rate FiO2 03/15/18 11:03 21 03/15/18 09:00 100/62 (75) 03/15/18 08:00 Room Air 03/15/18 08:00 97.6 77 18 110/71 (84) 96 03/15/18 05:15 97.9 74 16 94/55 (68) 95 03/15/18 04:00 Room Air 03/15/18 03:56 76 03/15/18 00:58 98.2 76 16 100/61 (74) 96 03/15/18 00:04 71 03/15/18 00:00 Room Air 03/14/18 22:15 98.0 77 16 101/62 (75) 95 03/14/18 20:10 79 03/14/18 20:00 Room Air 03/14/18 17:34 96 21 03/14/18 16:07 98.4 73 18 99/57 (71) 96 03/14/18 16:00 69 03/14/18 12:09 98.6 71 17 106/64 (78) 96 03/14/18 12:00 73 Intake & Output 03/15/18 03/15/18 07:00 19:00 Intake Total 240 ml Balance 240 ml Intake Oral 240 ml # Voids 4 # Bowel Movements 0 Physical Exam CONSTITUTIONAL/GENERAL: This is a thin female resting in bed in no apparent distress. TUBES/LINES/DRAINS: PIV. SKIN: Jaundice, scatter skin tears and scabs on upper extremities and chest. Ecchymoses on upper extremities. Skin temperature appropriate. Not diaphoretic. HEAD: Atraumatic. Normocephalic. EYES: Pupils equal and round and reactive. Extraocular motions intact. Scleral icterus. No injection or drainage. ENT: Hearing grossly normal. Nose without bleeding or purulent drainage. Moist oral mucosa. NECK: Trachea midline. Supple, nontender. CARDIOVASCULAR: Regular rate and rhythm. Peripheral pulses symmetric. RESPIRATORY/CHEST: Symmetric, unlabored respirations. Clear to auscultation. Breath sounds equal bilaterally. No wheezes, rales, or rhonchi. GASTROINTESTINAL: Abdomen soft, mildly distended, nontender. Hepatomegaly. Bowel sounds present. GENITOURINARY: Without palpable bladder distension. MUSCULOSKELETAL: Extremities without clubbing, cyanosis, or edema. No mottling or clubbing. NEUROLOGICAL: Awake and alert. Motor and sensory grossly within normal limits. Follows commands. Moves all extremities. PSYCHIATRIC: Calm. Flat affect. . Diagnostic Tests Laboratory Laboratory Tests Test 03/14/18 10:50 03/15/18 05:25 White Blood Count 5.0 TH/MM3 (4.0-11.0) 5.9 TH/MM3 (4.0-11.0) Red Blood Count 4.39 MIL/MM3 (4.00-5.30) 4.68 MIL/MM3 (4.00-5.30) Hemoglobin 10.7 GM/DL (11.6-15.3) 11.7 GM/DL (11.6-15.3) Hematocrit 33.1 % (35.0-46.0) 35.7 % (35.0-46.0) Mean Corpuscular Volume 75.5 FL (80.0-100.0) 76.3 FL (80.0-100.0) Mean Corpuscular Hemoglobin 24.3 PG (27.0-34.0) 25.0 PG (27.0-34.0) Mean Corpuscular Hemoglobin Concent 32.3 % (32.0-36.0) 32.7 % (32.0-36.0) Red Cell Distribution Width 35.8 % (11.6-17.2) 36.9 % (11.6-17.2) Platelet Count 116 TH/MM3 (150-450) 117 TH/MM3 (150-450) Mean Platelet Volume 9.1 FL (7.0-11.0) 8.8 FL (7.0-11.0) Neutrophils (%) (Auto) 47.2 % (16.0-70.0) 50.5 % (16.0-70.0) Lymphocytes (%) (Auto) 33.9 % (9.0-44.0) 32.2 % (9.0-44.0) Monocytes (%) (Auto) 15.6 % (0.0-8.0) 15.1 % (0.0-8.0) Eosinophils (%) (Auto) 2.2 % (0.0-4.0) 1.5 % (0.0-4.0) Basophils (%) (Auto) 1.1 % (0.0-2.0) 0.7 % (0.0-2.0) Neutrophils # (Auto) 2.4 TH/MM3 (1.8-7.7) 3.0 TH/MM3 (1.8-7.7) Lymphocytes # (Auto) 1.7 TH/MM3 (1.0-4.8) 1.9 TH/MM3 (1.0-4.8) Monocytes # (Auto) 0.8 TH/MM3 (0-0.9) 0.9 TH/MM3 (0-0.9) Eosinophils # (Auto) 0.1 TH/MM3 (0-0.4) 0.1 TH/MM3 (0-0.4) Basophils # (Auto) 0.1 TH/MM3 (0-0.2) 0.0 TH/MM3 (0-0.2) CBC Comment AUTO DIFF AUTO DIFF Differential Comment AUTO DIFF CONFIRMED AUTO DIFF CONFIRMED Platelet Estimate LOW (NORMAL) LOW (NORMAL) Platelet Morphology Comment NORMAL (NORMAL) ENLARGED (NORMAL) Target Cells 1+ (NORMAL) 1+ (NORMAL) Ovalocytes 1+ (NORMAL) 1+ (NORMAL) Blood Urea Nitrogen 8 MG/DL (7-18) 8 MG/DL (7-18) Creatinine 0.66 MG/DL (0.50-1.00) 0.59 MG/DL (0.50-1.00) Random Glucose 154 MG/DL (74-106) 75 MG/DL (74-106) Total Protein 6.0 GM/DL (6.4-8.2) 6.7 GM/DL (6.4-8.2) Albumin 2.2 GM/DL (3.4-5.0) 2.2 GM/DL (3.4-5.0) Calcium Level 8.2 MG/DL (8.5-10.1) 8.2 MG/DL (8.5-10.1) Alkaline Phosphatase 123 U/L (45-117) 133 U/L (45-117) Aspartate Amino Transf (AST/SGOT) 47 U/L (15-37) 70 U/L (15-37) Alanine Aminotransferase (ALT/SGPT) 34 U/L (10-53) 36 U/L (10-53) Total Bilirubin 3.6 MG/DL (0.2-1.0) 3.8 MG/DL (0.2-1.0) Direct Bilirubin 1.5 MG/DL (0.0-0.2) Sodium Level 135 MEQ/L (136-145) 135 MEQ/L (136-145) Potassium Level 4.1 MEQ/L (3.5-5.1) 4.9 MEQ/L (3.5-5.1) Chloride Level 104 MEQ/L (98-107) 105 MEQ/L (98-107) Carbon Dioxide Level 18.9 MEQ/L (21.0-32.0) 18.1 MEQ/L (21.0-32.0) Anion Gap 12 MEQ/L (5-15) 12 MEQ/L (5-15) Estimat Glomerular Filtration Rate 89 ML/MIN (>89) 101 ML/MIN (>89) Indirect Bilirubin 2.1 MG/DL (0.0-0.8) Keratocytes OCC (NORMAL) Magnesium Level 1.8 MG/DL (1.5-2.5) Result Diagram: 03/15/18 0525 03/15/18 0525 Imaging Last 48 hours Impressions Knee X-Ray 03/14/18 0000 Signed Impressions: Service Date/Time: Wednesday, March 14, 2018 18:18 - CONCLUSION: Osteoarthritis and osteopenia. No acute abnormality. Hadley Roberts Jr., MD Knee X-Ray 03/14/18 0000 Signed Impressions: Service Date/Time: Wednesday, March 14, 2018 18:24 - CONCLUSION: Osteopenia. No acute abnormality. Hadley Roberts Jr., MD Procedures * 03/06/18 -paracentesis removing 5.2L * 03/13/18 -paracentesis removing 6.3L . Assessment and Plan Disease Oriented Problem List: (1) Liver cirrhosis (2) Portal hypertension (3) Ascites (4) DM (diabetes mellitus) (5) Pleural effusion (6) Unintended weight loss (7) Generalized weakness Symptom Scale: (1) Shortness of breath 0-10 Scale: Unable to quantify (2) Debility 0-10 Scale: Unable to quantify Pertinent Non-Medical Issues Psychosocial: Originally from [place]. . Has 1 son who lives out of state. 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 Spiritual: Orthodox aldo. Legal: No advance directives completed. Ethical issues impacting care: No ethical issues identified. . Important Contacts Son/healthcare proxy Ney Maher . . Prognosis Ms. Wilson is a 68-year-old female with a medical history significant for severe liver cirrhosis with portal hypertension, diabetes mellitus types 2, history of GI bleed and history of noncompliance with medications or treatments. Patient presented to emergency room on 03/04/18 via EMS endorsing generalized weakness and abdominal distention, worsened during the prior week. Patient underwent 2 thoracentesis removing over 5 L of fluid each time. Patient endorsing progressive decline and poor activity tolerance. She remains at high risk for further decompensation, acute events and . . Code Status: Full Code Plan * CODE STATUS: Full code. Risks, benefits and limitations of CPR, intubation and mechanical ventilation discussed with patient. * HEALTHCARE DECISION-MAKING: Patient participated in medical decision making. She appears to have a fair understanding of her clinical condition, appears to retain the ability to weigh benefits versus burdens of treatment options. No advanced directives completed. As per [place] statue, healthcare proxy decision making falls to patient's only son Ney Maher. Patient is . * GOALS OF CARE: Patient electing to pursue aggressive management to include full code. Patient declining prison facility placement for rehabilitation, wishing to be discharged home for independent living. Hospice philosophy and benefits reviewed, hospice consulted over the weekend. Patient declined hospice services. However, appears receptive to hospice should her clinical condition worsen, or in the setting of additional decline or increased symptom burden. * SYMPTOMS: =Dyspnea: Secondary to pleural effusions, ascites. Verbalizing and shortness of breath has much improved after paracentesis, currently tolerating room air. = Debility: Progressive secondary to burden of disease. Patient with severe liver cirrhosis. PT following, PT at rehab recommended; however, patient declining prison facility placement. Concerns of patient's ability to return to independent living given generalized weakness, burden of disease. Patient with history of medication/recommendations noncompliance. * Advance directives to include living will and designation of healthcare surrogate decision maker reviewed with patient. Patient declined assistance with completion, will take forms home for further review. * Case reviewed with bedside RN Moraima. * Palliative care contact information has been provided to patient. * Palliative care will continue to follow up as needed for further clarification of goals of care as patient's clinical course continues to evolve. . Time Spent Total Floor Time (mins): 22 (Total time to include review medical records, physical exam, goals of care conversation with patient, case discussion with bedside RN.) >50% Counseling/Coord of Care: Yes Attestation To help prompt me to consider important information that might be impacting today's encounter and assessment, information from prior notes written by myself or my colleagues may have been "brought forward" into today's note. My signature on this note, however, is an attestation that I personally performed the exam, history, and/or decision-making noted today, and, unless otherwise indicated, the interactions with patient, family, and staff as well as the review of records all occurred today. I also attest that the listed assessment and stated plan reflect my best clinical judgment today based on the combination of historical information, prior notes, and today's exam/ interactions. When time spent is documented, it refers only to time spent today by the signer, or if indicated, combined time spent today by collaborating physician/nurse practitioner. Carlita Mares March 15, 2018 11:51
[2018-03-15 14:44] LABS: ALPHA-1-ANTITRYPSIN 65 mg/dL (100 - 190); ALPHA-1-ANTITRYPSIN PHENOTYPE MZ bands
[2018-03-15] MEDS ORDERED: LACTULOSE SYRUP 20 GM/30 ML CUP PO PRN (14:45)
--- NOTE | 2018-03-15 16:19 | HHI.GIFU ---
Subjective Remarks Pt resting in bed, states pain all over Denies nausea, vomiting Denies abdominal pain Still with weakness (Rosy Moore) Objective Vitals I&O Vital Signs Date Time Temp Pulse Resp B/P (MAP) Pulse Ox O2 Delivery O2 Flow Rate FiO2 03/15/18 12:00 80 03/15/18 12:00 97.8 78 18 96/69 (78) 97 03/15/18 11:03 21 03/15/18 09:00 100/62 (75) 03/15/18 08:00 Room Air 03/15/18 08:00 97.6 77 18 110/71 (84) 96 03/15/18 05:15 97.9 74 16 94/55 (68) 95 03/15/18 04:00 Room Air 03/15/18 03:56 76 03/15/18 00:58 98.2 76 16 100/61 (74) 96 03/15/18 00:04 71 03/15/18 00:00 Room Air 03/14/18 22:15 98.0 77 16 101/62 (75) 95 03/14/18 20:10 79 03/14/18 20:00 Room Air 03/14/18 17:34 96 21 I/O 03/14/18 03/14/18 03/14/18 03/15/18 03/15/18 03/15/18 07:00 15:00 23:00 07:00 15:00 23:00 Intake Total 650 ml 600 ml 240 ml Output Total 600 ml Balance 50 ml 600 ml 240 ml Intake Oral 650 ml 600 ml 240 ml Output Urine Total 600 ml # Voids 3 4 # Bowel Movements 3 0 0 Laboratory Laboratory Tests Test 03/15/18 05:25 White Blood Count 5.9 Red Blood Count 4.68 Hemoglobin 11.7 Hematocrit 35.7 Mean Corpuscular Volume 76.3 Mean Corpuscular Hemoglobin 25.0 Mean Corpuscular Hemoglobin Concent 32.7 Red Cell Distribution Width 36.9 Platelet Count 117 Mean Platelet Volume 8.8 Neutrophils (%) (Auto) 50.5 Lymphocytes (%) (Auto) 32.2 Monocytes (%) (Auto) 15.1 Eosinophils (%) (Auto) 1.5 Basophils (%) (Auto) 0.7 Neutrophils # (Auto) 3.0 Lymphocytes # (Auto) 1.9 Monocytes # (Auto) 0.9 Eosinophils # (Auto) 0.1 Basophils # (Auto) 0.0 CBC Comment AUTO DIFF Differential Comment AUTO DIFF CONFIRMED Platelet Estimate LOW Platelet Morphology Comment ENLARGED Target Cells 1+ Ovalocytes 1+ Keratocytes OCC Blood Urea Nitrogen 8 Creatinine 0.59 Random Glucose 75 Total Protein 6.7 Albumin 2.2 Calcium Level 8.2 Magnesium Level 1.8 Alkaline Phosphatase 133 Aspartate Amino Transf (AST/SGOT) 70 Alanine Aminotransferase (ALT/SGPT) 36 Total Bilirubin 3.8 Sodium Level 135 Potassium Level 4.9 Chloride Level 105 Carbon Dioxide Level 18.1 Anion Gap 12 Estimat Glomerular Filtration Rate 101 Date/Time Source Procedure Growth Status 03/06/18 14:57 Fluid Peritoneal Fluid Gram Stain - Final Complete 03/06/18 14:57 Fluid Peritoneal Fluid Body Fluid Culture - Final NO GROWTH IN 72 HRS.--AEROBICALLY OR ... Complete Imaging Last Impressions Knee X-Ray 03/14/18 0000 Signed Impressions: Service Date/Time: Wednesday, March 14, 2018 18:18 - CONCLUSION: Osteoarthritis and osteopenia. No acute abnormality. Hadley Roberts Jr., MD Cyst Biopsy Asp-Paracentesis US 03/13/18 0000 Signed Impressions: Service Date/Time: Tuesday, March 13, 2018 12:01 - CONCLUSION: Uncomplicated ultrasound guided paracentesis. Dallin Jay MD Abdomen/Pelvis CT 03/04/18 1449 Signed Impressions: Service Date/Time: Sunday, March 04, 2018 16:33 - CONCLUSION: 1. Severe liver cirrhosis with portal hypertension and varices as above. Severe ascites. 2. Moderate right effusion with compressive atelectasis at the right lung base. 3. Scattered colonic diverticulosis. Dashawn Lao MD Physical Exam HEENT: Normocephalic; atraumatic (+) icterus CHEST: Even/unlabored CARDIAC: RRR ABDOMEN: Distended, soft, bowel sounds active, nontender EXTREMITIES: No clubbing, cyanosis, or edema. SKIN: (+) jaundice IN SCHOOL SUSPENSION COORDINATOR: Alert and oriented times three. (Rosy Moore) Assessment and Plan Assessment: (1) Ascites ICD Codes: R18.8 - Other ascites Status: Acute (2) Generalized weakness ICD Codes: R53.1 - Weakness Status: Acute (3) Cirrhosis ICD Codes: K74.60 - Unspecified cirrhosis of liver Status: Acute (4) Coagulopathy ICD Codes: D68.9 - Coagulation defect, unspecified Plan Assessment: - Cirrhosis, pt denies history of liver issues, states abdominal swelling and pain for the past 3-4 months. However, records reviewed from December 2016 notes this to be a prior diagnosis, pt seen by our service at that time for reports of GIB and new dx of cirrhosis, however left AMA prior to complete work up. Denies ETOH for the past year and states prior to that was just a social drinker. According to records admitted to heavy drinking in her 20s and 30s Thrombocytopenia (platelets-63) hypoalbuminemia (albumin 2.3) Coagulopathy (INR-1.9) Liver RUIZ: Hepatitis panel negative. BRITNEY, AMA and ASMA negative. Iron-82 TIBC-231 % sat-35.5 Ferritin-82 AFP-4.2 Ceruloplasmin-26 Celiac panel negative. 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 Severe ascites. Moderate right effusion with compressive atelectasis at the right lung base. Scattered colonic diverticulosis. - Decreased appetite- states this is because when she eats it causes worsening of the abdominal swelling - Unintentional weight loss- despite abdominal swelling CA19.9 elevated 49.7 - Anemia- LDH WNL and Haptoglobin low- hematology following - Weakness- working with PT- per attending Paracentesis (03/07/18) 5200 cc removed. SAAG 1.79. Culture negative. Cytology revealed may mesothelial cells, lymphocytes, and macrophages. Negative for malignant cells. Repeat paracentesis (03/13) 6300 mL of fluid removed Colonoscopy (03/08) --> Diverticulosis in the sigmoid and descending colon. Internal and external hemorrhoids. (03/15) Increase in AST and Alk phos today. 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 Will order liver biopsy Plan Liver biopsy Lasix Spironolactone Inderal Xifaxan Vitamin K If work up negative consider liver biopsy Further recommendations based on clinical course Patient has been seen and examined by myself and Dr. Charlton and this note is written on his behalf (Rosy Moore) Physician Comments Patient seen and examined Agree with above Continue with current supportive care Monitor labs Plan liver biopsy (Kirby Charlton MD) Rosy Moore March 15, 2018 16:19 Kirby Charlton MD March 15, 2018 21:55
[2018-03-15 22:05] LABS: ALB/GLOB RATIO (SPE) 0.93 (1.39-2.23)
[2018-03-16] VITALS (12 sets, daily range): BP systolic 95–130; BP diastolic 58–70; PULSE 66–96; RESP 16–18; TEMP 97.1–98.4; O2SAT 95–100
[2018-03-16] MEDS: INSULIN ASPART SUPPLEMENTAL SCALE SQ SCH ×4 (08:00→20:21)
--- NOTE | 2018-03-16 08:09 | HHI.PR ---
Subjective Remarks Agitated today more confused in the morning, refused initially liver biopsy and also INR/ labs Patien tis more awake and alert and less agitated . Was seen by psych deemed capable to make decisions. Patient is agreeing to liver biopsy., labs and also considering SNF Otherwise no complaints. ' Says belly is non painful. No fever ro chills .No n./v/d/c. Objective Vitals Vital Signs Date Time Temp Pulse Resp B/P (MAP) Pulse Ox O2 Delivery O2 Flow Rate FiO2 03/16/18 04:00 85 03/16/18 04:00 97.8 81 16 101/70 (80) 97 03/16/18 04:00 Room Air 03/16/18 00:00 96 03/16/18 00:00 97.8 80 17 102/65 (77) 97 03/16/18 00:00 Room Air 03/15/18 20:00 72 03/15/18 20:00 97.5 79 18 99/66 (77) 97 03/15/18 20:00 Room Air 03/15/18 17:00 101 03/15/18 16:00 97.8 81 18 97/65 (76) 97 03/15/18 12:00 80 03/15/18 12:00 97.8 78 18 96/69 (78) 97 03/15/18 11:03 21 03/15/18 09:00 100/62 (75) I/O 03/15/18 03/15/18 03/15/18 03/16/18 03/16/18 03/16/18 07:00 15:00 23:00 07:00 15:00 23:00 Intake Total 240 ml 120 ml 120 ml Output Total 600 ml 350 ml Balance 240 ml -480 ml -230 ml Intake Oral 240 ml 120 ml 120 ml Output Urine Total 600 ml 350 ml # Voids 4 # Bowel Movements 0 1 Result Diagram: 03/15/18 0525 03/15/18 0525 Imaging Last Impressions Knee X-Ray 03/14/18 0000 Signed Impressions: Service Date/Time: Wednesday, March 14, 2018 18:18 - CONCLUSION: Osteoarthritis and osteopenia. No acute abnormality. Hadley Roberts Jr., MD Cyst Biopsy Asp-Paracentesis US 03/13/18 0000 Signed Impressions: Service Date/Time: Tuesday, March 13, 2018 12:01 - CONCLUSION: Uncomplicated ultrasound guided paracentesis. Dallin Jay MD Abdomen/Pelvis CT 03/04/18 1449 Signed Impressions: Service Date/Time: Sunday, March 04, 2018 16:33 - CONCLUSION: 1. Severe liver cirrhosis with portal hypertension and varices as above. Severe ascites. 2. Moderate right effusion with compressive atelectasis at the right lung base. 3. Scattered colonic diverticulosis. Dashawn Lao MD Objective Remarks GENERAL: Patient appear chronically ill, appears older than stated age CARDIOVASCULAR: Normal rate and regular rhythm without murmurs, gallops, or rubs. RESPIRATORY: Good respiratory efforts. Breath sounds equal and clear to auscultation bilaterally. GASTROINTESTINAL: Abdomen still distended but much better compared to yesterday. Diffuse, mild discomfort to palpation. MUSCULOSKELETAL: Extremities without cyanosis, or edema. NEURO: Alert & Oriented x4 to person, place, time, situation. Moves all ext x4 PSYCH: Appropriate mood and affect. Procedures none A/P Problem List: (1) Cirrhosis ICD Code: K74.60 - Unspecified cirrhosis of liver Status: Acute (2) Coagulopathy ICD Code: D68.9 - Coagulation defect, unspecified (3) Lactic acidosis ICD Code: E87.2 - Acidosis (4) DM (diabetes mellitus) ICD Code: E11.9 - Type 2 diabetes mellitus without complications Assessment and Plan 68-year-old female with: Cirrhosis: h/o Cirrhosis/Portal HTN per review of records from 12/2016, pt reports "this is the first time I've heard that", h/o GI Bleed requiring transfusion in 12/2016, however LEFT AMA prior to EGD at that time. Unclear etiology, denies alcohol abuse. However reports she used to drink socially in the past. 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 Total Bili 4.7, AST [address] Abd/Pelvis w/ extensive cirrhosis/portal HTN and varices and severe ascites. -Status post large-volume paracentesis. Ascites fluid studies pending. No signs of infection. Paracentesis (03/07/18) 5200 cc removed. SAAG 1.79. Culture negative. Cytology with mesothelial cells, lymphocytes, and macrophages. Negative for malignant cells. -GI following. Continue propranolol, Aldactone, Lasix, monitor I/O. Watch blood pressure closely. -Patient has had over 20 pound unintentional weight loss, CA-19-9 is also elevated. She never had a colonoscopy. Had colonoscopy 03/08 showed Diverticulosis in the sigmoid and descending colon. Internal and external hemorrhoids. Patient refused EGD With hallucinations. Consult psych for eval Ammonia levels elevated, give lactulose if elevated Plan for liver biopsy 03/16/18 Check cbc, bmp and repeat INR Anemia H/H stable. LDH WNL and Haptoglobin low, hem/onc consulted. Seen by hematology who has ordered a further work up of the anemia. Coagulopathy/thrombocytopenia: secondary to above, INR 2.5 on presentation, improved with vitamin K, continue Vit K 5mg po qd, monitor closely for bleeding. Lactic Acidosis: Lactate 6.6, no signs of sepsis, likely due to dehydration from third spacing. Status post albumin. DM2: Hold Metformin, sliding scale w/ Accu-Cheks. Hypokalemia/hypomagnesemia: Replaced. Elevated TSH , check free t3 elevated and normal free T4 normal. recheck as OP later no need to start meds at this time. DVT Prophylaxis: Pharmacologic contraindication secondary to coagulopathy/ thrombocytopenia Discharge Planning PT recommends SNF placement. CM is ff for DC to SNF. Declined by hospice as patient want more PT and aggressive care, however she is refusing care. S/p repeat paracentesis 03/13 HGB is stable Plan to DC to SNF when cleared by hem/onc . However she is also refusing SNF now. PT daily until deemed safe for DC home. patient can't walk and with multiple falls not safe for DC home. Consult psych for eval, discussed with Loyda, patient is deemed capable to make decisions. Plan for liver biopsy 03/16 Patient is also considering SNF, discussed with Carlene Hernadez MD March 16, 2018 08:08
[2018-03-16] MEDS ORDERED: LORazepam 1 MG TAB PO ONE (08:15)
[2018-03-16] MEDS: PHYTONADIONE 5 MG/SWFI 5 ML ORAL SYR PO SCH (09:00)
[2018-03-16] MEDS: PROPRANOLOL HCL 10 MG TAB PO SCH ×3 (09:00→20:21)
[2018-03-16] MEDS: SODIUM CHLORIDE 0.9% FLUSH 10 ML FLUSH IV FLUSH SCH ×2 (09:17→20:21)
[2018-03-16] MEDS: FUROSEMIDE 40 MG TAB PO SCH (09:17)
[2018-03-16] MEDS: DOCUSATE SODIUM 50 MG/SENNA 8.6 MG TAB PO SCH ×2 (09:17→20:21)
[2018-03-16] MEDS: RIFAXIMIN 550 MG TAB PO SCH ×2 (09:17→20:21)
[2018-03-16] MEDS: SPIRONOLACTONE 50 MG TAB PO SCH (09:18)
[2018-03-16 11:23] LABS: AUTOMATED NEUTROPHIL # 3.5 TH/MM3 (1.8-7.7); BASOPHIL # 0.1 TH/MM3 (0-0.2); BASOPHIL % 1.2 % (0.0-2.0); EOSINOPHIL # 0.1 TH/MM3 (0-0.4); EOSINOPHIL % 1.3 % (0.0-4.0); HEMATOCRIT 33.5 % (35.0-46.0); HEMOGLOBIN 10.8 GM/DL (11.6-15.3); LYMPH % 29.8 % (9.0-44.0); LYMPHOCYTE # 1.9 TH/MM3 (1.0-4.8); MEAN CELL VOLUME 77.3 FL (80.0-100.0); MEAN CORPUSCULAR HGB CONC 32.3 % (32.0-36.0); MEAN PLATELET VOLUME 9.2 FL (7.0-11.0); MONO % 13.7 % (0.0-8.0); MONOCYTE # 0.9 TH/MM3 (0-0.9); PLATELET COUNT 120 TH/MM3 (150-450); RED BLOOD COUNT 4.33 MIL/MM3 (4.00-5.30); RED CELL DISTRIBUTION WIDTH 37.1 % (11.6-17.2); WHITE BLOOD COUNT 6.4 TH/MM3 (4.0-11.0)
[2018-03-16 11:28] LABS: PROTHROMBIN TIME - PATIENT 14.8 SEC (9.8-11.6)
[2018-03-16 11:29] LABS: INTERNATIONAL NORMALIZED RATIO 1.5 RATIO
--- NOTE | 2018-03-16 11:34 | PD.ONC.PN ---
Subjective Subjective Remarks Afebrile overnight. Patient states she was up most of the night last night with nausea and vomiting. denies blood in vomit. continues to have medication induced diarrhea to lower her ammonia levels. no blood in stools. feeling a bit better today. no further vomiting since last night she states. Objective Data Date Time Temp Pulse Resp B/P (MAP) Pulse Ox O2 Delivery O2 Flow Rate FiO2 03/16/18 08:00 97.7 82 18 96/60 (72) 95 03/16/18 04:00 85 03/16/18 04:00 97.8 81 16 101/70 (80) 97 03/16/18 04:00 Room Air 03/16/18 00:00 96 03/16/18 00:00 97.8 80 17 102/65 (77) 97 03/16/18 00:00 Room Air 03/15/18 20:00 72 03/15/18 20:00 97.5 79 18 99/66 (77) 97 03/15/18 20:00 Room Air 03/15/18 17:00 101 03/15/18 16:00 97.8 81 18 97/65 (76) 97 03/15/18 12:00 80 03/15/18 12:00 97.8 78 18 96/69 (78) 97 03/16/18 03/16/18 03/16/18 07:00 15:00 23:00 Intake Total 120 ml Output Total 350 ml Balance -230 ml Result Diagram: 03/16/18 1045 03/15/18 0525 Laboratory Results Laboratory Tests Test 03/15/18 16:30 03/16/18 10:45 Ammonia 42 MCMOL/L White Blood Count 6.4 TH/MM3 Red Blood Count 4.33 MIL/MM3 Hemoglobin 10.8 GM/DL Hematocrit 33.5 % Mean Corpuscular Volume 77.3 FL Mean Corpuscular Hemoglobin 25.0 PG Mean Corpuscular Hemoglobin Concent 32.3 % Red Cell Distribution Width 37.1 % Platelet Count 120 TH/MM3 Mean Platelet Volume 9.2 FL Neutrophils (%) (Auto) 54.0 % Lymphocytes (%) (Auto) 29.8 % Monocytes (%) (Auto) 13.7 % Eosinophils (%) (Auto) 1.3 % Basophils (%) (Auto) 1.2 % Neutrophils # (Auto) 3.5 TH/MM3 Lymphocytes # (Auto) 1.9 TH/MM3 Monocytes # (Auto) 0.9 TH/MM3 Eosinophils # (Auto) 0.1 TH/MM3 Basophils # (Auto) 0.1 TH/MM3 CBC Comment AUTO DIFF Prothrombin Time 14.8 SEC Prothromb Time International Ratio 1.5 RATIO Administered Medications Medications (Trade) Dose Ordered Sig/Kike Route PRN Reason Start Time Stop Time Status Last Admin Dose Admin Sodium Chloride (NS Flush) 2 ml BID IV FLUSH 03/04/18 21:00 03/16/18 09:17 Senna/Docusate Sodium (Skylar-Colace) 1 tab BID PO 03/04/18 21:00 03/16/18 09:17 Prochlorperazine Edisylate (Compazine Inj) 5 mg Q6H PRN IV PUSH NAUSEA/VOMITING 03/04/18 19:30 03/09/18 18:02 Propranolol HCl (Inderal) 10 mg Q12HR PO 03/04/18 21:00 03/14/18 21:20 Spironolactone (Aldactone) 50 mg DAILY PO 03/05/18 09:00 03/16/18 09:18 Furosemide (Lasix) 40 mg DAILY PO 03/05/18 09:00 03/16/18 09:17 Insulin Aspart (NovoLOG SUPPLEMENTAL SCALE) 1 ACHS SLIDING SCALE SQ 03/04/18 21:00 03/15/18 17:46 Phytonadione (Mephyton Liq) 5 mg DAILY PO 03/05/18 09:00 03/15/18 09:02 Rifaximin (Xifaxan) 550 mg BID PO 03/05/18 21:00 03/16/18 09:17 Lactulose (Lactulose Liq) 30 ml QID PRN PO if ammonia elevated 03/15/18 14:45 03/15/18 17:58 Objective Remarks GENERAL: Pleasant female, lying in bed, appears fatigued but otherwise in nad. SKIN: Warm and dry. +dry skin HEAD: Normocephalic. EYES: No injection or drainage. NECK: Supple, trachea midline. CARDIOVASCULAR: Regular rate and rhythm RESPIRATORY: Breath sounds equal bilaterally. No accessory muscle use. GASTROINTESTINAL: Abdomen mildly distended with ascites. non tender to palpation. + BS EXTREMITIES: No cyanosis NEUROLOGICAL: awake but fatigued. normal speech. moving extremities. Assessment/Plan Problem List: (1) Symptomatic anemia ICD Codes: D64.9 - Anemia, unspecified Status: Acute Plan: --SPEP pending. --iron studies show no iron deficiency --clarisa negative, no evidence of hemolysis. Assessment 68y/o female with anemia h/o liver cirrhosis associated with portal hypertension, varices, ascites, moderate right pleural effusion with atelectasis of the lung base. S recent colonoscopy that showed internal and external hemorrhoids. h/o heavy chain disease Plan 1. would continue to monitor CBC, but there is no sign of hemolysis at present. 2. hematology will sign off. please call us if there is anything further we can assist with. Attending Statement The exam, history, and the medical decision-making described in the above note were completed with the assistance of the mid-level provider. I reviewed and agree with the findings presented. I attest that I had a [id number] encounter with the patient on the same day, and personally performed and documented my assessment and findings in the medical record. Pt sleepy in evening. Events noted. Had liver bx today. SPEP negative for monoclonal gammopathy, unlikely to have heavy chain disease. Liver disease likely etiology of decrease haptoglobin. February as out patient. Lani Jung March 16, 2018 11:34 Ellie Hutchinson MD March 16, 2018 21:11
[2018-03-16] MEDS ORDERED: PILL SPLITTER OTHER PRN (12:00)
[2018-03-16 12:12] LABS: BICARBONATE 20.1 MEQ/L (21.0-32.0); CALCIUM 8.2 MG/DL (8.5-10.1); CREATININE 0.67 MG/DL (0.50-1.00)
--- NOTE | 2018-03-16 12:19 | PD.PSY.CON ---
Provisional Diagnosis Admission Date March 04, 2018 at 17:35 [place] I. Delirium due to another underlying medical [place] II. Deferred [place] III. Pleural effusion, diabetes mellitus, cirrhosis [place] IV. Chronic/terminal medical illness [place] V. 55 History of Present Illness Service Psychiatry Consult Requested By Medical team Reason for Consult Decision-making capacity to agree with liver biopsy Primary Care Physician Onofre Soliz M.D. HPI The patient is a 68-year-old woman, domiciled in [place] alone, she is , has 1 son of 22 years old, unemployed, supported by [facility], without no previous psychiatric history, no prepsychotic hospitalizations, no previous suicide attempts, with a medical history significant for severe liver cirrhosis with portal hypertension, diabetes mellitus types 2, history of GI bleed and history of noncompliance with medications or treatments. Patient presented to emergency room on 03/04/18 via EMS endorsing generalized weakness and abdominal distention, worsened during the prior week. Patient underwent 2 thoracentesis removing over 5 L of fluid each time. Patient endorsing progressive decline and poor activity tolerance. She remains at high risk for further decompensation, acute events and . The patient has been presenting fluctuating level of consciousness, periodic confusion and agitation , at times refusing medical treatment, and she has been consulted to psychiatry to address her decision-making capacity to agree/refused liver biopsy. On psychiatric evaluation I find a patient that is calm, cooperative and pleasant. She seems to be hypoactive and with some level restricted affect, but she reports being in a good mood "given my situation that is not so good". She reports that she is in peace, denies anxiety, she does report having problems sleeping at night, and she seems to be aware/insightful about periods of confusion. The patient reports that she is in a complete agreement with have liver biopsy, and she says that she understand that this could be helpful in her treatment and prognosis. Patient says that she understand that she has a terminal illness, that her is a high probability," but I am fine, just in pain some time". Patient is able to verbalize the reason of her hospitalization , she was able to explain to me in a quite fair and understandable manner her medical conditions, the importance of attention to treatment and follow medical recommendations. The patient denies anhedonia, she denies suicidal and homicidal ideation, she denies visual and auditory hallucinations. the patient is fully oriented 3 at this moment, without fluctuation of consciousness, without attention deficit. The patient denies the use of alcohol and illegal drugs. As per nurse in charge, and also as per conversation with Dr. Doyle, the patient has been making contradictory statements regarding her general health, at times agitated, confused and disorganized, no giving reliable information, but alternating with periods of lucidity. Review of Systems Constitutional: DENIES: Diaphoretic episodes, Fatigue, Fever, Weight gain, Weight loss, Chills, Dizziness, Change in appetite, Night Sweats Endocrine: DENIES: Abnorml menstrual pattern, Heat/cold intolerance, Polydipsia , Polyuria, Polyphagia Eyes: DENIES: Blurred vision, Diplopia, Eye inflammation, Eye pain, Vision loss , Photosensitivity, Double Vision Ears, nose, mouth, throat: DENIES: Tinnitus, Hearing loss, Vertigo, Nasal discharge, Oral lesions, Throat pain, Hoarseness, Ear Pain, Running Nose, Epistaxis, Sinus Pain, Toothache, Odynophagia Respiratory: DENIES: Apneas, Cough, Snoring, Wheezing, Hemoptysis, Sputum production, Shortness of breath Cardiovascular: DENIES: Chest pain, Palpitations, Syncope, Dyspnea on Exertion , PND, Lower Extremity Edema, Orthopnea, Claudication Gastrointestinal: DENIES: Abdominal pain, Black stools, Bloody stools, Constipation, Diarrhea, Nausea, Vomiting, Difficulty Swallowing, Anorexia Genitourinary: DENIES: Abnormal vaginal bleeding, Dysmenorrhea, Dyspareunia, Sexual dysfunction, Urinary frequency, Urinary incontinence, Urgency, Hematuria , Dysuria, Nocturia, Vaginal discharge Musculoskeletal: DENIES: Joint pain, Muscle aches, Stiffness, Joint Swelling, Back pain, Neck pain Integumentary: DENIES: Abnormal pigmentation, Pruritus, Rash, Nail changes, Breast masses, Breast skin changes, Nipple discharge Hematologic/lymphatic: DENIES: Bruising, Lymphadenopathy Immunologic/allergic: DENIES: Eczema, Urticaria Neurologic: DENIES: Abnormal gait, Headache, Localized weakness, Paresthesias, Seizures, Speech Problems, Tremor, Poor Balance Psychiatric: DENIES: Anxiety, Confusion, Mood changes, Depression, Hallucinations, Agitation, Suicidal Ideation, Homicidal Ideation, Delusions Past Family Social History Coded Allergies: acetaminophen (Unverified Allergy, Severe, 06/08/17) aspirin (Unverified Allergy, Severe, 06/08/17) codeine (Unverified Allergy, Severe, 06/08/17) oxycodone (Unverified Allergy, Severe, 06/08/17) Active Scripts Furosemide (Furosemide) 40 Mg Tab, 40 MG PO DAILY for Blood Pressure Management , #30 TAB Prov:Carlene Doyle MD 03/13/18 Rifaximin (Xifaxan) 550 Mg Tab, 550 MG PO BID for Blood Pressure Management, # 60 TAB Prov:Carlene Doyle MD 03/13/18 Propranolol (Propranolol) 10 Mg Tab, 10 MG PO Q12HR for Blood Pressure Management, #60 TAB Prov:Carlene Doyle MD 03/13/18 Spironolactone (Spironolactone) 25 Mg Tab, 50 MG PO DAILY for Blood Pressure Management, #30 TAB 0 Refills Prov:Carlene Doyle MD 03/13/18 Walker with Front Wheels (Walker with Front Wheels) 1 Mis Mis, EA .XX DIRECTED, #1 0 Refills Prov:Carlene Doyle MD 03/11/18 Reported Medications Furosemide (Lasix) 20 Mg Tab, 20 MG PO DAILY, #30 TAB 0 Refills 01/15/17 Metformin (Metformin) 500 Mg Tab, 1000 MG PO BIDPC for Blood Sugar Management, # 60 TAB 0 Refills With meals 01/15/17 Current Medications Medications (Trade) Dose Ordered Sig/Kike Route Start Time Stop Time Status Last Admin (NS Flush) 2 ml UNSCH PRN IV FLUSH 03/04/18 18:15 (NS Flush) 2 ml BID IV FLUSH 03/04/18 21:00 03/16/18 09:17 (Narcan Inj) 0.4 mg UNSCH PRN IV PUSH 03/04/18 18:15 (Skylar-Colace) 1 tab BID PO 03/04/18 21:00 03/16/18 09:17 (Milk Of Magnesia Liq) 30 ml Q12H PRN PO 03/04/18 18:15 (Senokot) 17.2 mg Q12H PRN PO 03/04/18 18:15 (Dulcolax Supp) 10 mg DAILY PRN RECTAL 03/04/18 18:15 (Lactulose Liq) 30 ml DAILY PRN PO 03/04/18 18:15 (Compazine Inj) 5 mg Q6H PRN IV PUSH 03/04/18 19:30 03/09/18 18:02 (Inderal) 10 mg Q12HR PO 03/04/18 21:00 03/14/18 21:20 (Aldactone) 50 mg DAILY PO 03/05/18 09:00 03/16/18 09:18 (Lasix) 40 mg DAILY PO 03/05/18 09:00 03/16/18 09:17 (D50w (Vial) Inj) 50 ml UNSCH PRN IV PUSH 03/04/18 19:30 (Glucagon Inj) 1 mg UNSCH PRN OTHER 03/04/18 19:30 (NovoLOG SUPPLEMENTAL SCALE) 1 ACHS SLIDING SCALE SQ 03/04/18 21:00 03/15/18 17:46 (Mephyton Liq) 5 mg DAILY PO 03/05/18 09:00 03/15/18 09:02 (Xifaxan) 550 mg BID PO 03/05/18 21:00 03/16/18 09:17 (Lactulose Liq) 30 ml QID PRN PO 03/15/18 14:45 03/15/18 17:58 (SEROquel) 12.5 mg HS PO 03/16/18 21:00 (Pill Splitter) 1 ea UNSCH PRN OTHER 03/16/18 12:00 Family Psych History No family psychiatric history Social History Patient was born and raised in [place], she lives in [place] alone, she is , unemployed, supported by [employer] [facility], she has 1 son of 22 year-old, she has a college degree Patient's Strengths (min. 2) No previous psychiatric history Physical Exam Patient is psychomotor retarded, with restricted affect, she looks chronically ill, very weak Vital Signs Vital Signs Date Time Temp Pulse Resp B/P (MAP) Pulse Ox O2 Delivery O2 Flow Rate FiO2 03/16/18 08:00 97.7 82 18 96/60 (72) 95 03/16/18 04:00 Room Air 03/15/18 11:03 21 I/O 03/16/18 03/16/18 03/17/18 08:00 16:00 00:00 Intake Total 120 ml Output Total 350 ml Balance -230 ml Lab Results Test 03/15/18 16:30 03/16/18 10:45 Ammonia 42 MCMOL/L White Blood Count 6.4 TH/MM3 Red Blood Count 4.33 MIL/MM3 Hemoglobin 10.8 GM/DL Hematocrit 33.5 % Mean Corpuscular Volume 77.3 FL Mean Corpuscular Hemoglobin 25.0 PG Mean Corpuscular Hemoglobin Concent 32.3 % Red Cell Distribution Width 37.1 % Platelet Count 120 TH/MM3 Mean Platelet Volume 9.2 FL Neutrophils (%) (Auto) 54.0 % Lymphocytes (%) (Auto) 29.8 % Monocytes (%) (Auto) 13.7 % Eosinophils (%) (Auto) 1.3 % Basophils (%) (Auto) 1.2 % Neutrophils # (Auto) 3.5 TH/MM3 Lymphocytes # (Auto) 1.9 TH/MM3 Monocytes # (Auto) 0.9 TH/MM3 Eosinophils # (Auto) 0.1 TH/MM3 Basophils # (Auto) 0.1 TH/MM3 CBC Comment AUTO DIFF Prothrombin Time 14.8 SEC Prothromb Time International Ratio 1.5 RATIO Activated Partial Thromboplast Time 27.2 SEC Date/Time Source Procedure Growth Status 03/06/18 14:57 Fluid Peritoneal Fluid Gram Stain - Final Complete 03/06/18 14:57 Fluid Peritoneal Fluid Body Fluid Culture - Final NO GROWTH IN 72 HRS.--AEROBICALLY OR ... Complete Mental Status Examination Appearance: Appropriate Consciousness: Alert Orientation: x4 Motor Activity: Normal gait Speech: Unremarkable Language: Adequate Fund of Knowledge: Adequate Attention and Concentration: Adequate Memory: Unremarkable Mood: Appropriate Affect: Appropriate Thought Process & Associations: Intact Thought Content: Appropriate Hallucination Type: None Delusion Type: None Suicidal Ideation: No Suicidal Plan: No Suicidal Intention: No Homicidal Ideation: No Homicidal Plan: No Homicidal Intention: No Insight: Adequate Judgment: Adequate Assessment & Plan Problem List: (1) Delirium due to another medical condition ICD Codes: F05 - Delirium due to known physiological condition Assessment & Plan: Psychiatric evaluation today I find a patient that is calm, cooperative, pleasant, even though she seems to be very weak, chronically ill. The patient reports to be in a good spirits, okay mood, denies depression, denies active anxiety, denies yunior and psychosis, denies suicidal and was ideation, denies visual and auditory hallucinations. This is a patient without no previous psychiatric history. No previous psychiatric hospitalizations. No previous suicide attempts, seems to be very insightful and realistic about current medical situation and prognosis. She is fully oriented 3, no attention deficit, no filtration of consciousness at this moment. No agitation , no aggressive behavior at this moment. Patient is able to verbalize a good understanding and apposition of medical situation, also was able to verbalize agreement with liver biopsy medical treatment. Patient definitely has decision- making capacity to agree with treatment at this moment. Given her reported fluctuation of consciousness, confusion, which is most probably related with delirium secondary to cirrhosis, hyperammonemia, and her multiple medical conditions, the decision-making capacity can also fluctuate. Will order 12.5 mg of Seroquel at night to help the patient with a sleep and delirium. I have discussed this case directly with Dr. Doyle. Consult appreciated. (2) Cirrhosis ICD Codes: K74.60 - Unspecified cirrhosis of liver Status: Acute (3) Pleural effusion ICD Codes: J90 - Pleural effusion, not elsewhere classified Status: Acute Assessment & Plan Estimated LOS: Nicholas Lopes MD March 16, 2018 12:19
[2018-03-16 12:38] LABS: OVALOCYTES 1+ (NORMAL); TARGET CELLS 1+ (NORMAL)
--- NOTE | 2018-03-16 14:51 | HHI.GIFU ---
Subjective Remarks Pt resting in bed, napping. Says she's not feeling well but does not further elaborate. (Aria Sierra) Objective Vitals I&O Vital Signs Date Time Temp Pulse Resp B/P (MAP) Pulse Ox O2 Delivery O2 Flow Rate FiO2 03/16/18 12:00 97.6 86 18 104/58 (73) 96 03/16/18 08:00 97.7 82 18 96/60 (72) 95 03/16/18 04:00 85 03/16/18 04:00 97.8 81 16 101/70 (80) 97 03/16/18 04:00 Room Air 03/16/18 00:00 96 03/16/18 00:00 97.8 80 17 102/65 (77) 97 03/16/18 00:00 Room Air 03/15/18 20:00 72 03/15/18 20:00 97.5 79 18 99/66 (77) 97 03/15/18 20:00 Room Air 03/15/18 17:00 101 03/15/18 16:00 97.8 81 18 97/65 (76) 97 I/O 03/15/18 03/15/18 03/15/18 03/16/18 03/16/18 03/16/18 07:00 15:00 23:00 07:00 15:00 23:00 Intake Total 240 ml 120 ml 120 ml Output Total 600 ml 350 ml Balance 240 ml -480 ml -230 ml Intake Oral 240 ml 120 ml 120 ml Output Urine Total 600 ml 350 ml # Voids 4 # Bowel Movements 0 1 Laboratory Laboratory Tests Test 03/15/18 16:30 03/16/18 10:45 Ammonia 42 White Blood Count 6.4 Red Blood Count 4.33 Hemoglobin 10.8 Hematocrit 33.5 Mean Corpuscular Volume 77.3 Mean Corpuscular Hemoglobin 25.0 Mean Corpuscular Hemoglobin Concent 32.3 Red Cell Distribution Width 37.1 Platelet Count 120 Mean Platelet Volume 9.2 Neutrophils (%) (Auto) 54.0 Lymphocytes (%) (Auto) 29.8 Monocytes (%) (Auto) 13.7 Eosinophils (%) (Auto) 1.3 Basophils (%) (Auto) 1.2 Neutrophils # (Auto) 3.5 Lymphocytes # (Auto) 1.9 Monocytes # (Auto) 0.9 Eosinophils # (Auto) 0.1 Basophils # (Auto) 0.1 CBC Comment AUTO DIFF Differential Comment AUTO DIFF CONFIRMED Platelet Estimate LOW Platelet Morphology Comment NORMAL Target Cells 1+ Ovalocytes 1+ Prothrombin Time 14.8 Prothromb Time International Ratio 1.5 Activated Partial Thromboplast Time 27.2 Blood Urea Nitrogen 10 Creatinine 0.67 Random Glucose 112 Calcium Level 8.2 Sodium Level 136 Potassium Level 3.6 Chloride Level 105 Carbon Dioxide Level 20.1 Anion Gap 11 Estimat Glomerular Filtration Rate 87 Date/Time Source Procedure Growth Status 03/06/18 14:57 Fluid Peritoneal Fluid Gram Stain - Final Complete 03/06/18 14:57 Fluid Peritoneal Fluid Body Fluid Culture - Final NO GROWTH IN 72 HRS.--AEROBICALLY OR ... Complete Imaging Last Impressions Knee X-Ray 03/14/18 0000 Signed Impressions: Service Date/Time: Wednesday, March 14, 2018 18:18 - CONCLUSION: Osteoarthritis and osteopenia. No acute abnormality. Hadley Roberts Jr., MD Cyst Biopsy Asp-Paracentesis US 03/13/18 0000 Signed Impressions: Service Date/Time: Tuesday, March 13, 2018 12:01 - CONCLUSION: Uncomplicated ultrasound guided paracentesis. Dallin Jay MD Abdomen/Pelvis CT 03/04/18 1449 Signed Impressions: Service Date/Time: Sunday, March 04, 2018 16:33 - CONCLUSION: 1. Severe liver cirrhosis with portal hypertension and varices as above. Severe ascites. 2. Moderate right effusion with compressive atelectasis at the right lung base. 3. Scattered colonic diverticulosis. Dashawn Lao MD Physical Exam HEENT: Normocephalic; atraumatic (+) icterus CHEST: Even/unlabored CARDIAC: RRR ABDOMEN: Distended, soft, bowel sounds active, nontender EXTREMITIES: No clubbing, cyanosis, or edema. SKIN: (+) jaundice LOAD CHECKER: lethargic (Aria Sierra) Assessment and Plan Assessment: (1) Ascites ICD Codes: R18.8 - Other ascites Status: Acute (2) Generalized weakness ICD Codes: R53.1 - Weakness Status: Acute (3) Cirrhosis ICD Codes: K74.60 - Unspecified cirrhosis of liver Status: Acute (4) Coagulopathy ICD Codes: D68.9 - Coagulation defect, unspecified Plan Assessment: - Cirrhosis, pt denies history of liver issues, states abdominal swelling and pain for the past 3-4 months. However, records reviewed from December 2016 notes this to be a prior diagnosis, pt seen by our service at that time for reports of GIB and new dx of cirrhosis, however left AMA prior to complete work up. Denies ETOH for the past year and states prior to that was just a social drinker. According to records admitted to heavy drinking in her 20s and 30s Thrombocytopenia (platelets-63) hypoalbuminemia (albumin 2.3) Coagulopathy (INR-1.9) Liver RUIZ: Hepatitis panel negative. BRITNEY, AMA and ASMA negative. Iron-82 TIBC-231 % sat-35.5 Ferritin-82 AFP-4.2 Ceruloplasmin-26 Celiac panel negative. 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 Severe ascites. Moderate right effusion with compressive atelectasis at the right lung base. Scattered colonic diverticulosis. - Decreased appetite- states this is because when she eats it causes worsening of the abdominal swelling - Unintentional weight loss- despite abdominal swelling CA19.9 elevated 49.7 - Anemia- LDH WNL and Haptoglobin low- hematology following - Weakness- working with PT- per attending Paracentesis (03/07/18) 5200 cc removed. SAAG 1.79. Culture negative. Cytology revealed may mesothelial cells, lymphocytes, and macrophages. Negative for malignant cells. Repeat paracentesis (03/13) 6300 mL of fluid removed Colonoscopy (03/08) --> Diverticulosis in the sigmoid and descending colon. Internal and external hemorrhoids. (03/15) Increase in AST and Alk phos today. 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 Will order liver biopsy 03/16/18 liver bx pending. Psych consulted to determine if pt competent to make decisions. Per psych her judgement and insight are adequate. pt is lethargic today. Plan Liver biopsy when deemed competent PRN antiemetics Lasix Spironolactone Inderal Xifaxan Vitamin K supportive care Patient has been seen and examined by myself and Dr. Charlton and this note is written on his behalf (Aria Sierra) Physician Comments Patient seen and examined Agree with above Continue with current supportive care Monitor labs Await liver biopsy (Kirby Charlton MD) Aria Sierra March 16, 2018 14:51 Kirby Charlton MD March 16, 2018 20:32
[2018-03-16] MEDS ORDERED: MIDAZOLAM HCL 5 MG/5 ML VIAL ONE (15:30)
[2018-03-16] MEDS ORDERED: fentaNYL CITRATE 250 MCG/5 ML AMP ONE (15:30)
--- NOTE | 2018-03-16 16:15 | PD.RAD ---
Post CT Procedure Prog Note Pre Procedure Diagnosis: (1) Cirrhosis (2) Ascites Post Procedure Diagnosis: (1) Cirrhosis (2) Ascites Procedure Date: March 16, 2018 Supervising Radiologist: Donato Ochoa Anesthesia: Local, Conscious Sedation Plan of Activity Patient to Unit: Nursing Unit Patient Condition: Fair See PACS Report for procedural detail/treatment Drainage Procedure Procedure 1 Imaging Guidance: CT Side: Right Procedure Type: Paracentesis Drainage: Suction Fluid Removal (CCs): 2500 Fluid Description: Cloudy, Yellow Biopsy Imaging Guidance: CT Side: Right Biopsy Procedure: Liver Specimen: Core Biopsy Donato Ochoa MD March 16, 2018 16:15
[2018-03-16] MEDS: QUEtiapine FUMARATE 25 MG TAB PO SCH (20:21)
[2018-03-17] VITALS (11 sets, daily range): BP systolic 84–113; BP diastolic 50–58; PULSE 72–88; RESP 16–18; TEMP 97.4–97.9; O2SAT 95–98
[2018-03-17 06:52] LABS: AUTOMATED NEUTROPHIL # 2.9 TH/MM3 (1.8-7.7); BASOPHIL # 0.1 TH/MM3 (0-0.2); EOSINOPHIL # 0.1 TH/MM3 (0-0.4); EOSINOPHIL % 1.4 % (0.0-4.0); HEMATOCRIT 30.9 % (35.0-46.0); HEMOGLOBIN 10.3 GM/DL (11.6-15.3); LYMPHOCYTE # 1.5 TH/MM3 (1.0-4.8); MEAN CELL VOLUME 76.7 FL (80.0-100.0); MEAN CORPUSCULAR HEMOGLOBIN 25.6 PG (27.0-34.0); MEAN CORPUSCULAR HGB CONC 33.4 % (32.0-36.0); MEAN PLATELET VOLUME 8.8 FL (7.0-11.0); MONO % 13.9 % (0.0-8.0); MONOCYTE # 0.7 TH/MM3 (0-0.9); NEUT % 55.7 % (16.0-70.0); PLATELET COUNT 103 TH/MM3 (150-450); RED BLOOD COUNT 4.03 MIL/MM3 (4.00-5.30); RED CELL DISTRIBUTION WIDTH 36.5 % (11.6-17.2); WHITE BLOOD COUNT 5.3 TH/MM3 (4.0-11.0)
[2018-03-17 07:12] LABS: BICARBONATE 21.9 MEQ/L (21.0-32.0); CREATININE 0.61 MG/DL (0.50-1.00)
[2018-03-17] MEDS: INSULIN ASPART SUPPLEMENTAL SCALE SQ SCH ×4 (08:00→20:46)
--- NOTE | 2018-03-17 08:22 | RADRPT ---
EXAM DATE: 03/16/2018 4:51 PM EDT AGE/SEX: 68 years / Female INDICATIONS: Ascites. CLINICAL DATA: This is the patient's initial encounter. Patient reports that signs and symptoms have been present for 2 days and indicates a pain score of 4/10. MEDICAL/SURGICAL HISTORY: Gastroesophageal reflux disease. Diabetes mellitus type II. Cholecys tectomy. section. COMPARISON: No prior [facility] exams available for comparison. SEDATION TIME (min): 35 BIOPSY SITE: Right liver MEDICATION(S): 25 mcg fentanyl (Sublimaze) IV DEVICE(S): 18 gauge Temno core biopsy needle . . PROCEDURE: CT guided Right liver biopsy Conscious sedation with continuous EKG and oximetry monitoring. Prior to the procedure informed consent was obtained. Any appropriate prior imaging studies were rev iewed. Using automated exposure control and adjustment of the mA and/or kV according to patient size, radiat ion dose was kept as low as reasonably achievable to obtain optimal diagnostic quality images. DICOM format image data is available electronically for review and comparison. The site was prepped in a sterile fashion. Full sterile technique was used, including cap, mask, maty rile gloves and gown and a large sterile sheet. Hand hygiene and 2% chlorhexidine and/or betadine/al cohol prep was utilized per protocol for cutaneous antisepsis. The skin and subcutaneous tissues wer e infiltrated with local anesthetic solution. With CT guidance the previously identified target was localized. Biopsy was performed using the presc ribed needle as above. Adequate hemostasis was obtained with compression at the puncture site. Follow-up CT scan reveals no hemorrhage. The patient tolerated the procedure well and there were no complications. The patient was returned to the Radiology Outpatient Unit in stable condition. CONCLUSION: 1. Uncomplicated CT guided biopsy. Electronically signed by: Donato Ochoa MD 03/17/2018 8:21 AM EDT
--- NOTE | 2018-03-17 08:23 | RADRPT ---
EXAM DATE: 03/16/2018 5:05 PM EDT AGE/SEX: 68 years / Female INDICATIONS: Severe ascites. CLINICAL DATA: This is the patient's initial encounter. Patient reports that signs and symptoms have been present for 2 days and indicates a pain score of 4/10. MEDICAL/SURGICAL HISTORY: Gastroesophageal reflux disease. Diabetes mellitus type II. Cholecystect emilie. section. COMPARISON: No prior [facility] exams available for comparison. SEDATION TIME (min): 35 MEDICATION(S): 25 mcg Morphine IV DEVICE(S): 6 Tristanian drainage catheter FLUID: Total volume of 2500 of johnson fluid was removed. Fluid was discarded. Paracentesis was therapeutic only.. . . PROCEDURE : 1. CT-guidance for abdominal paracentesis. 2. Paracentesis. The risks, benefits and alternatives to CT-guided paracentesis were explained to the patient in detai l, lay terms including the risk of bleeding and infection. Oral and written informed consent was obt ained. Using automated exposure control and adjustment of the mA and/or kV according to patient size, radiation dose was kept as low as reasonably achievable to obtain optimal diagnostic quality images. DICOM format image data is available electronically for review and comparison. The patient was scanned to select approach for paracentesis. The skin was prepped in sterile fashion . The skin and subcutaneous tissues were infiltrated with Lidocaine solution. A 6 Tristanian catheter w as introduced to the peritoneal cavity and ascites was collected. Post procedure scanning reveals no evidence of hematoma or other complication. The patient tolerated the procedure well and left the CT suite in good condition. CONCLUSION: 1. Uncomplicated CT Guided paracentesis. Electronically signed by: Donato Ochoa MD 03/17/2018 8:22 AM EDT
[2018-03-17] MEDS: RIFAXIMIN 550 MG TAB PO SCH ×2 (08:26→20:39)
[2018-03-17] MEDS: PROPRANOLOL HCL 10 MG TAB PO SCH ×2 (08:26→20:38)
[2018-03-17] MEDS: SPIRONOLACTONE 50 MG TAB PO SCH (08:26)
[2018-03-17] MEDS: FUROSEMIDE 40 MG TAB PO SCH (08:26)
[2018-03-17] MEDS: DOCUSATE SODIUM 50 MG/SENNA 8.6 MG TAB PO SCH ×2 (08:26→20:38)
[2018-03-17] MEDS: PHYTONADIONE 5 MG/SWFI 5 ML ORAL SYR PO SCH (08:26)
[2018-03-17] MEDS: SODIUM CHLORIDE 0.9% FLUSH 10 ML FLUSH IV FLUSH SCH ×2 (08:33→20:38)
--- NOTE | 2018-03-17 13:49 | HHI.GIFU ---
Subjective Remarks Pt states she feels like she needs to have a BM She has made the nurse aware and is waiting on suppository Some abdominal pain S/P paracentesis and liver biopsy today (Rosy Moore) Objective Vitals I&O Vital Signs Date Time Temp Pulse Resp B/P (MAP) Pulse Ox O2 Delivery O2 Flow Rate FiO2 03/17/18 12:00 97.6 72 16 84/50 (61) 96 03/17/18 08:00 97 Room Air 03/17/18 08:00 97.6 81 16 97/54 (68) 97 03/17/18 08:00 80 03/17/18 04:00 97.8 81 18 103/58 (73) 95 03/17/18 04:00 Room Air 03/17/18 04:00 81 03/17/18 00:00 Room Air 03/17/18 00:00 97.4 84 18 113/55 (74) 97 03/17/18 00:00 88 03/16/18 21:00 80 03/16/18 20:22 100 03/16/18 20:00 97.2 81 18 111/69 (83) 99 03/16/18 20:00 Nasal Cannula 2.00 03/16/18 19:46 100 03/16/18 17:00 79 16 102/66 (78) 96 03/16/18 16:45 66 16 95/65 (75) 96 03/16/18 16:30 98.4 66 16 130/64 (86) 96 03/16/18 16:00 97.1 83 18 107/62 (77) 99 I/O 03/16/18 03/16/18 03/16/18 03/17/18 03/17/18 03/17/18 07:00 15:00 23:00 07:00 15:00 23:00 Intake Total 120 ml 0 ml 342 ml Output Total 350 ml 200 ml Balance -230 ml 0 ml 142 ml Intake Oral 120 ml 0 ml 342 ml Output Urine Total 350 ml 200 ml # Voids 1 # Bowel Movements 0 0 Laboratory Laboratory Tests Test 03/17/18 04:52 White Blood Count 5.3 Red Blood Count 4.03 Hemoglobin 10.3 Hematocrit 30.9 Mean Corpuscular Volume 76.7 Mean Corpuscular Hemoglobin 25.6 Mean Corpuscular Hemoglobin Concent 33.4 Red Cell Distribution Width 36.5 Platelet Count 103 Mean Platelet Volume 8.8 Neutrophils (%) (Auto) 55.7 Lymphocytes (%) (Auto) 28.0 Monocytes (%) (Auto) 13.9 Eosinophils (%) (Auto) 1.4 Basophils (%) (Auto) 1.0 Neutrophils # (Auto) 2.9 Lymphocytes # (Auto) 1.5 Monocytes # (Auto) 0.7 Eosinophils # (Auto) 0.1 Basophils # (Auto) 0.1 CBC Comment AUTO DIFF Differential Comment AUTO DIFF CONFIRMED Blood Urea Nitrogen 11 Creatinine 0.61 Random Glucose 78 Calcium Level 8.0 Sodium Level 138 Potassium Level 3.4 Chloride Level 104 Carbon Dioxide Level 21.9 Anion Gap 12 Estimat Glomerular Filtration Rate 97 Date/Time Source Procedure Growth Status 03/06/18 14:57 Fluid Peritoneal Fluid Gram Stain - Final Complete 03/06/18 14:57 Fluid Peritoneal Fluid Body Fluid Culture - Final NO GROWTH IN 72 HRS.--AEROBICALLY OR ... Complete Imaging Last Impressions Paracentesis 03/16/18 0000 Signed Impressions: CONCLUSION: 1. Uncomplicated CT Guided paracentesis. Liver Biopsy CT 03/16/18 0000 Signed Impressions: CONCLUSION: 1. Uncomplicated CT guided biopsy. Knee X-Ray 03/14/18 0000 Signed Impressions: Service Date/Time: Wednesday, March 14, 2018 18:18 - CONCLUSION: Osteoarthritis and osteopenia. No acute abnormality. Hadley Roberts Jr., MD Cyst Biopsy Asp-Paracentesis US 03/13/18 0000 Signed Impressions: Service Date/Time: Tuesday, March 13, 2018 12:01 - CONCLUSION: Uncomplicated ultrasound guided paracentesis. Dallin Jay MD Abdomen/Pelvis CT 03/04/18 1449 Signed Impressions: Service Date/Time: Sunday, March 04, 2018 16:33 - CONCLUSION: 1. Severe liver cirrhosis with portal hypertension and varices as above. Severe ascites. 2. Moderate right effusion with compressive atelectasis at the right lung base. 3. Scattered colonic diverticulosis. Dashawn Lao MD Physical Exam HEENT: Normocephalic; atraumatic (+) icterus CHEST: Even/unlabored CARDIAC: RRR ABDOMEN: Distended, soft, bowel sounds active, nontender EXTREMITIES: No clubbing, cyanosis, or edema. SKIN: (+) jaundice WAREHOUSE DISTRIBUTION SPECIALIST:Awake, alert (Rosy Moore) Assessment and Plan Assessment: (1) Ascites ICD Codes: R18.8 - Other ascites Status: Acute (2) Generalized weakness ICD Codes: R53.1 - Weakness Status: Acute (3) Cirrhosis ICD Codes: K74.60 - Unspecified cirrhosis of liver Status: Acute (4) Coagulopathy ICD Codes: D68.9 - Coagulation defect, unspecified Plan Assessment: - Cirrhosis, pt denies history of liver issues, states abdominal swelling and pain for the past 3-4 months. However, records reviewed from December 2016 notes this to be a prior diagnosis, pt seen by our service at that time for reports of GIB and new dx of cirrhosis, however left AMA prior to complete work up. Denies ETOH for the past year and states prior to that was just a social drinker. According to records admitted to heavy drinking in her 20s and 30s Thrombocytopenia (platelets-63) hypoalbuminemia (albumin 2.3) Coagulopathy (INR-1.9) Liver RUIZ: Hepatitis panel negative. BRITNEY, AMA and ASMA negative. Iron-82 TIBC-231 % sat-35.5 Ferritin-82 AFP-4.2 Ceruloplasmin-26 Celiac panel negative. 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 Severe ascites. Moderate right effusion with compressive atelectasis at the right lung base. Scattered colonic diverticulosis. - Decreased appetite- states this is because when she eats it causes worsening of the abdominal swelling - Unintentional weight loss- despite abdominal swelling CA19.9 elevated 49.7 - Anemia- LDH WNL and Haptoglobin low- hematology following - Weakness- working with PT- per attending Paracentesis (03/07/18) 5200 cc removed. SAAG 1.79. Culture negative. Cytology revealed may mesothelial cells, lymphocytes, and macrophages. Negative for malignant cells. Repeat paracentesis (03/13) 6300 mL of fluid removed Colonoscopy (03/08) --> Diverticulosis in the sigmoid and descending colon. Internal and external hemorrhoids. (03/15) Increase in AST and Alk phos today. 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 Will order liver biopsy 03/16/18 liver bx pending. Psych consulted to determine if pt competent to make decisions. Per psych her judgement and insight are adequate. pt is lethargic today. (03/17) Pt S/P paracentesis and liver biopsy today. No other significant changes. Plan Liver biopsy results pending PRN antiemetics Lasix Spironolactone Inderal Xifaxan Vitamin K Continue with current supportive care Further recommendations based on biopsy results Patient has been seen and examined by myself and Dr. Charlton and this note is written on his behalf (Rosy Moore) Physician Comments Patient seen and examined Agree with above Continue with current supportive care Monitor labs (Kirby Charlton MD) Rosy Moore March 17, 2018 13:49 Kirby Charlton MD March 17, 2018 23:24
[2018-03-17] MEDS ORDERED: GLYCERIN ADULT 2 GM SUPP RECTAL ONE (14:15)
--- NOTE | 2018-03-17 17:05 | HHI.PR ---
Subjective Remarks The patient was seen earlier today says she does not have any abdominal pain at this time. However seems her belly is getting bigger again. Feels very tired she has more pain today. Says she cannot take tramadol for pain but not the other pain medications that she is allergic. No nausea vomiting no diarrhea or constipation. Eating fairly well. Says [facility] case management is following . Objective Vitals Vital Signs Date Time Temp Pulse Resp B/P (MAP) Pulse Ox O2 Delivery O2 Flow Rate FiO2 03/17/18 16:36 98 Room Air 03/17/18 16:36 74 03/17/18 14:03 96 Room Air 03/17/18 14:03 80 03/17/18 12:00 97.6 72 16 84/50 (61) 96 03/17/18 10:55 98 21 03/17/18 08:00 97 Room Air 03/17/18 08:00 97.6 81 16 97/54 (68) 97 03/17/18 08:00 80 03/17/18 04:00 97.8 81 18 103/58 (73) 95 03/17/18 04:00 Room Air 03/17/18 04:00 81 03/17/18 00:00 Room Air 03/17/18 00:00 97.4 84 18 113/55 (74) 97 03/17/18 00:00 88 03/16/18 21:00 80 03/16/18 20:22 100 03/16/18 20:00 97.2 81 18 111/69 (83) 99 03/16/18 20:00 Nasal Cannula 2.00 03/16/18 19:46 100 I/O 03/16/18 03/16/18 03/16/18 03/17/18 03/17/18 03/17/18 07:00 15:00 23:00 07:00 15:00 23:00 Intake Total 120 ml 0 ml 342 ml Output Total 350 ml 200 ml Balance -230 ml 0 ml 142 ml Intake Oral 120 ml 0 ml 342 ml Output Urine Total 350 ml 200 ml # Voids 1 # Bowel Movements 0 0 Result Diagram: 03/17/18 0452 03/17/18 0452 Imaging Last Impressions Paracentesis 03/16/18 0000 Signed Impressions: CONCLUSION: 1. Uncomplicated CT Guided paracentesis. Liver Biopsy CT 03/16/18 0000 Signed Impressions: CONCLUSION: 1. Uncomplicated CT guided biopsy. Knee X-Ray 03/14/18 0000 Signed Impressions: Service Date/Time: Wednesday, March 14, 2018 18:18 - CONCLUSION: Osteoarthritis and osteopenia. No acute abnormality. Hadley Roberts Jr., MD Cyst Biopsy Asp-Paracentesis US 03/13/18 0000 Signed Impressions: Service Date/Time: Tuesday, March 13, 2018 12:01 - CONCLUSION: Uncomplicated ultrasound guided paracentesis. Dallin Jay MD Abdomen/Pelvis CT 03/04/18 1449 Signed Impressions: Service Date/Time: Sunday, March 04, 2018 16:33 - CONCLUSION: 1. Severe liver cirrhosis with portal hypertension and varices as above. Severe ascites. 2. Moderate right effusion with compressive atelectasis at the right lung base. 3. Scattered colonic diverticulosis. Dashawn Lao MD Objective Remarks GENERAL: Patient appear chronically ill, appears older than stated age CARDIOVASCULAR: Normal rate and regular rhythm without murmurs, gallops, or rubs. RESPIRATORY: Good respiratory efforts. Breath sounds equal and clear to auscultation bilaterally. GASTROINTESTINAL: Abdomen still distended but much better compared to yesterday. Diffuse, mild discomfort to palpation. MUSCULOSKELETAL: Extremities without cyanosis, or edema. NEURO: Alert & Oriented x4 to person, place, time, situation. Moves all ext x4 PSYCH: Appropriate mood and affect. Procedures none A/P Problem List: (1) Cirrhosis ICD Code: K74.60 - Unspecified cirrhosis of liver Status: Acute (2) Coagulopathy ICD Code: D68.9 - Coagulation defect, unspecified (3) Lactic acidosis ICD Code: E87.2 - Acidosis (4) DM (diabetes mellitus) ICD Code: E11.9 - Type 2 diabetes mellitus without complications Assessment and Plan 68-year-old female with: Cirrhosis: h/o Cirrhosis/Portal HTN per review of records from 12/2016, pt reports "this is the first time I've heard that", h/o GI Bleed requiring transfusion in 12/2016, however LEFT AMA prior to EGD at that time. Unclear etiology, denies alcohol abuse. However reports she used to drink socially in the past. 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 Total Bili 4.7, AST [address] Abd/Pelvis w/ extensive cirrhosis/portal HTN and varices and severe ascites. -Status post large-volume paracentesis. Ascites fluid studies pending. No signs of infection. Paracentesis (03/07/18) 5200 cc removed. SAAG 1.79. Culture negative. Cytology with mesothelial cells, lymphocytes, and macrophages. Negative for malignant cells. -GI following. Continue propranolol, Aldactone, Lasix, monitor I/O. Watch blood pressure closely. -Patient has had over 20 pound unintentional weight loss, CA-19-9 is also elevated. She never had a colonoscopy. Had colonoscopy 03/08 showed Diverticulosis in the sigmoid and descending colon. Internal and external hemorrhoids. Patient refused EGD With hallucinations. Consult psych for eval Ammonia levels elevated, give lactulose if elevated S/p liver biopsy 03/16/18 Check cbc, bmp and repeat INR Anemia H/H stable. LDH WNL and Haptoglobin low, hem/onc consulted. Seen by hematology who has ordered a further work up of the anemia. Coagulopathy/thrombocytopenia: secondary to above, INR 2.5 on presentation, improved with vitamin K, continue Vit K 5mg po qd, monitor closely for bleeding. Lactic Acidosis: Lactate 6.6, no signs of sepsis, likely due to dehydration from third spacing. Status post albumin. DM2: Hold Metformin, sliding scale w/ Accu-Cheks. Hypokalemia/hypomagnesemia: Replaced. Elevated TSH , check free t3 elevated and normal free T4 normal. recheck as OP later no need to start meds at this time. DVT Prophylaxis: Pharmacologic contraindication secondary to coagulopathy/ thrombocytopenia Discharge Planning PT recommends SNF placement. CM is ff for DC to SNF. Declined by hospice as patient want more PT and aggressive care, however she is refusing care. S/p repeat paracentesis 03/13 HGB is stable Plan to DC to SNF when cleared by hem/onc . However she is also refusing SNF now. PT daily until deemed safe for DC home. patient can't walk and with multiple falls not safe for DC home. Consult psych for eval, discussed with Loyda, patient is deemed capable to make decisions. Plan for liver biopsy 03/16 Patient is also considering SNF, discussed with CM Difficult discharge. Carlene Doyle MD March 17, 2018 17:05
[2018-03-17] MEDS: traMADol HCL 50 MG TAB PO PRN (20:37)
[2018-03-17] MEDS: QUEtiapine FUMARATE 25 MG TAB PO SCH (20:38)
[2018-03-18] VITALS (9 sets, daily range): BP systolic 89–108; BP diastolic 51–66; PULSE 70–94; RESP 17–20; TEMP 97.2–98; O2SAT 95–96
[2018-03-18] MEDS: traMADol HCL 50 MG TAB PO PRN (03:24)
[2018-03-18] MEDS: INSULIN ASPART SUPPLEMENTAL SCALE SQ SCH ×4 (08:00→21:00)
[2018-03-18] MEDS: DOCUSATE SODIUM 50 MG/SENNA 8.6 MG TAB PO SCH ×2 (09:04→21:44)
[2018-03-18] MEDS: SODIUM CHLORIDE 0.9% FLUSH 10 ML FLUSH IV FLUSH SCH ×2 (09:04→21:44)
[2018-03-18] MEDS: FUROSEMIDE 40 MG TAB PO SCH (09:05)
[2018-03-18] MEDS: PROPRANOLOL HCL 10 MG TAB PO SCH ×2 (09:05→21:44)
[2018-03-18] MEDS: RIFAXIMIN 550 MG TAB PO SCH ×2 (09:05→21:44)
[2018-03-18] MEDS: PHYTONADIONE 5 MG/SWFI 5 ML ORAL SYR PO SCH (09:05)
[2018-03-18] MEDS: SPIRONOLACTONE 50 MG TAB PO SCH (11:10)
--- NOTE | 2018-03-18 15:10 | HHI.GIFU ---
Subjective Remarks Pt is resting in bed, not voicing any new complaints (Tyler,Steffany BUSINESS PROCESS SPECIALIST) Objective Vitals I&O Vital Signs Date Time Temp Pulse Resp B/P (MAP) Pulse Ox O2 Delivery O2 Flow Rate FiO2 03/18/18 13:41 96 Room Air 03/18/18 12:41 96 Room Air 03/18/18 11:12 77 03/18/18 11:12 96 Room Air 03/18/18 10:02 95 03/18/18 08:00 97.6 76 18 98/63 (75) 96 03/18/18 04:00 Room Air 03/18/18 04:00 74 03/18/18 04:00 97.4 78 17 89/54 (66) 95 03/18/18 00:00 Room Air 03/18/18 00:00 97.2 77 17 101/51 (68) 96 03/18/18 00:00 77 03/18/18 00:00 Room Air 03/17/18 20:00 97.5 72 18 90/58 (69) 96 03/17/18 20:00 76 03/17/18 20:00 Room Air 03/17/18 18:00 72 89/51 (64) 03/17/18 16:36 98 Room Air 03/17/18 16:36 74 03/17/18 16:00 97.9 77 16 85/52 (63) 98 I/O 03/17/18 03/17/18 03/17/18 03/18/18 03/18/18 03/18/18 07:00 15:00 23:00 07:00 15:00 23:00 Intake Total 342 ml 480 ml 222 ml Output Total 200 ml Balance 142 ml 480 ml 222 ml Intake Oral 342 ml 480 ml 222 ml Output Urine Total 200 ml # Voids 2 1 # Bowel Movements 0 1 1 Laboratory Date/Time Source Procedure Growth Status 03/06/18 14:57 Fluid Peritoneal Fluid Gram Stain - Final Complete 03/06/18 14:57 Fluid Peritoneal Fluid Body Fluid Culture - Final NO GROWTH IN 72 HRS.--AEROBICALLY OR ... Complete Imaging Last Impressions Paracentesis 03/16/18 0000 Signed Impressions: CONCLUSION: 1. Uncomplicated CT Guided paracentesis. Liver Biopsy CT 03/16/18 0000 Signed Impressions: CONCLUSION: 1. Uncomplicated CT guided biopsy. Knee X-Ray 03/14/18 0000 Signed Impressions: Service Date/Time: Wednesday, March 14, 2018 18:18 - CONCLUSION: Osteoarthritis and osteopenia. No acute abnormality. Hadley Roberts Jr., MD Cyst Biopsy Asp-Paracentesis US 03/13/18 0000 Signed Impressions: Service Date/Time: Tuesday, March 13, 2018 12:01 - CONCLUSION: Uncomplicated ultrasound guided paracentesis. Dallin Jay MD Abdomen/Pelvis CT 03/04/18 1449 Signed Impressions: Service Date/Time: Sunday, March 04, 2018 16:33 - CONCLUSION: 1. Severe liver cirrhosis with portal hypertension and varices as above. Severe ascites. 2. Moderate right effusion with compressive atelectasis at the right lung base. 3. Scattered colonic diverticulosis. Dashawn Lao MD Physical Exam HEENT: Normocephalic; atraumatic (+) icterus CHEST: Even/unlabored CARDIAC: RRR ABDOMEN: Distended, soft, bowel sounds active, nontender EXTREMITIES: No clubbing, cyanosis, or edema. SKIN: (+) jaundice SOAP MIXER:Awake, alert (Steffany Scott BUSINESS PROCESS SPECIALIST) Assessment and Plan Assessment: (1) Ascites ICD Codes: R18.8 - Other ascites Status: Acute (2) Generalized weakness ICD Codes: R53.1 - Weakness Status: Acute (3) Cirrhosis ICD Codes: K74.60 - Unspecified cirrhosis of liver Status: Acute (4) Coagulopathy ICD Codes: D68.9 - Coagulation defect, unspecified Plan Assessment: - Cirrhosis, pt denies history of liver issues, states abdominal swelling and pain for the past 3-4 months. However, records reviewed from December 2016 notes this to be a prior diagnosis, pt seen by our service at that time for reports of GIB and new dx of cirrhosis, however left AMA prior to complete work up. Denies ETOH for the past year and states prior to that was just a social drinker. According to records admitted to heavy drinking in her 20s and 30s Thrombocytopenia (platelets-63) hypoalbuminemia (albumin 2.3) Coagulopathy (INR-1.9) Liver RUIZ: Hepatitis panel negative. BRITNEY, AMA and ASMA negative. Iron-82 TIBC-231 % sat-35.5 Ferritin-82 AFP-4.2 Ceruloplasmin-26 Celiac panel negative. 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 Severe ascites. Moderate right effusion with compressive atelectasis at the right lung base. Scattered colonic diverticulosis. - Decreased appetite- states this is because when she eats it causes worsening of the abdominal swelling - Unintentional weight loss- despite abdominal swelling CA19.9 elevated 49.7 - Anemia- LDH WNL and Haptoglobin low- hematology following - Weakness- working with PT- per attending Paracentesis (03/07/18) 5200 cc removed. SAAG 1.79. Culture negative. Cytology revealed may mesothelial cells, lymphocytes, and macrophages. Negative for malignant cells. Repeat paracentesis (03/13) 6300 mL of fluid removed Colonoscopy (03/08) --> Diverticulosis in the sigmoid and descending colon. Internal and external hemorrhoids. (03/15) Increase in AST and Alk phos today. 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 Will order liver biopsy 03/16/18 liver bx pending. Psych consulted to determine if pt competent to make decisions. Per psych her judgement and insight are adequate. pt is lethargic today. (03/17) Pt S/P paracentesis and liver biopsy today. No other significant changes. (03/18) Liver bx still pending, not voicing any new complaints, Plan Liver biopsy results pending PRN antiemetics Lasix Spironolactone Inderal Xifaxan Continue with current supportive care Further recommendations based on biopsy results Patient has been seen and examined by myself and Dr. Charlton and this note is written on his behalf (Steffany Scott) Physician Comments Patient seen and examined Agree with above Continue with current supportive care Monitor lab Await liver biopsy (Kirby Charlton MD) Steffany Scott March 18, 2018 15:10 Kirby Charlton MD March 18, 2018 17:16
--- NOTE | 2018-03-18 15:23 | HHI.HCPN ---
Reason for visit a. To assist with evaluation and management of symptoms including: Ascites, debility. b. To assist medical decision maker(s) with: better understanding of current medical conditions; weighing benefits/burdens of medical treatment options; making medical treatment decisions. . Subjective/Interval History Follow-up for clarification of goals of care, assistance with advance directives. Patient seen in her room, resting in bed in no acute distress. Alert and oriented x self, place and situation, intermittently confused/ forgetful. Endorsing abdominal discomfort, remains easily fatigued with any activity. Denies pain, shortness of breath during my visit. Patient remains afebrile, stable hemodynamically. Tolerating room air. Patient underwent CT- guided liver biopsy on 03/16, pending pathology report. Most recent paracentesis 03/16 removing 2.5L of peritoneal fluid. Peritoneal fluid culture with no growth in 72 hours. Most recent laboratory workup 03/17 revealing WBC 5.3, Hgb stable at 10.3, BUN/creatinine 11/0.61. Patient's friend Bev at bedside. Goals of treatment readdressed, awaiting liver biopsy to have a better understanding of prognosis and our treatment options. Patient wishing to be discharged home, however, receptive to senior living facility for physical strengthening. Reviewed the future role of hospice should patient's clinical condition worsen or increased symptom burden. Patient and friend Bev receptive to this. Patient was assisted with completion of advance directives, [facility] DNR. . Family/friend interactions See interval note. . Advance Directives Living Will: Never completed Health Care Surrogate: Copy in medical record Durable Power of Screen Printing Cloth Spreader: Never completed Advance Directive Specifics Date completed: 03/18/2018. . Health Care Surrogate(s): Patient designating son Juan Kim as healthcare surrogate decision maker, alternate surrogate his friend Bev Napier. . Significant change in goals: Conservative management short of no resuscitation. . Objective Vital Signs Date Time Temp Pulse Resp B/P (MAP) Pulse Ox O2 Delivery O2 Flow Rate FiO2 03/18/18 13:41 96 Room Air 03/18/18 12:41 96 Room Air 03/18/18 11:12 77 03/18/18 11:12 96 Room Air 03/18/18 10:02 95 03/18/18 08:00 97.6 76 18 98/63 (75) 96 03/18/18 04:00 Room Air 03/18/18 04:00 74 03/18/18 04:00 97.4 78 17 89/54 (66) 95 03/18/18 00:00 Room Air 03/18/18 00:00 97.2 77 17 101/51 (68) 96 03/18/18 00:00 77 03/18/18 00:00 Room Air 03/17/18 20:00 97.5 72 18 90/58 (69) 96 03/17/18 20:00 76 03/17/18 20:00 Room Air 03/17/18 18:00 72 89/51 (64) 03/17/18 16:36 98 Room Air 03/17/18 16:36 74 03/17/18 16:00 97.9 77 16 85/52 (63) 98 Intake & Output 03/18/18 03/18/18 07:00 19:00 Intake Total 222 ml Balance 222 ml Intake Oral 222 ml # Voids 1 # Bowel Movements 1 Physical Exam CONSTITUTIONAL/GENERAL: This is a thin, frail looking female resting in bed in no apparent distress. TUBES/LINES/DRAINS: PIV. SKIN: Jaundice, scatter skin tears and scabs on upper extremities and chest. Ecchymoses on upper extremities. Skin temperature appropriate. Not diaphoretic. HEAD: Atraumatic. Normocephalic. EYES: Pupils equal and round and reactive. Extraocular motions intact. Scleral icterus. No injection or drainage. ENT: Hearing grossly normal. Nose without bleeding or purulent drainage. Moist oral mucosa. NECK: Trachea midline. Supple, nontender. CARDIOVASCULAR: Regular rate and rhythm. Peripheral pulses symmetric. RESPIRATORY/CHEST: Symmetric, unlabored respirations. Clear to auscultation. Breath sounds equal bilaterally. No wheezes, rales, or rhonchi. GASTROINTESTINAL: Abdomen soft, mildly distended, nontender. Hepatomegaly. Bowel sounds present. GENITOURINARY: Without palpable bladder distension. MUSCULOSKELETAL: Extremities without clubbing, cyanosis, or edema. No mottling or clubbing. NEUROLOGICAL: Awake and alert. Motor and sensory grossly within normal limits. Follows commands. Moves all extremities. PSYCHIATRIC: Calm. Flat affect. . Diagnostic Tests Laboratory Laboratory Tests Test 03/15/18 16:30 5/23/18 10:45 03/17/18 04:52 Ammonia 42 MCMOL/L (11-32) White Blood Count 6.4 TH/MM3 (4.0-11.0) 5.3 TH/MM3 (4.0-11.0) Red Blood Count 4.33 MIL/MM3 (4.00-5.30) 4.03 MIL/MM3 (4.00-5.30) Hemoglobin 10.8 GM/DL (11.6-15.3) 10.3 GM/DL (11.6-15.3) Hematocrit 33.5 % (35.0-46.0) 30.9 % (35.0-46.0) Mean Corpuscular Volume 77.3 FL (80.0-100.0) 76.7 FL (80.0-100.0) Mean Corpuscular Hemoglobin 25.0 PG (27.0-34.0) 25.6 PG (27.0-34.0) Mean Corpuscular Hemoglobin Concent 32.3 % (32.0-36.0) 33.4 % (32.0-36.0) Red Cell Distribution Width 37.1 % (11.6-17.2) 36.5 % (11.6-17.2) Platelet Count 120 TH/MM3 (150-450) 103 TH/MM3 (150-450) Mean Platelet Volume 9.2 FL (7.0-11.0) 8.8 FL (7.0-11.0) Neutrophils (%) (Auto) 54.0 % (16.0-70.0) 55.7 % (16.0-70.0) Lymphocytes (%) (Auto) 29.8 % (9.0-44.0) 28.0 % (9.0-44.0) Monocytes (%) (Auto) 13.7 % (0.0-8.0) 13.9 % (0.0-8.0) Eosinophils (%) (Auto) 1.3 % (0.0-4.0) 1.4 % (0.0-4.0) Basophils (%) (Auto) 1.2 % (0.0-2.0) 1.0 % (0.0-2.0) Neutrophils # (Auto) 3.5 TH/MM3 (1.8-7.7) 2.9 TH/MM3 (1.8-7.7) Lymphocytes # (Auto) 1.9 TH/MM3 (1.0-4.8) 1.5 TH/MM3 (1.0-4.8) Monocytes # (Auto) 0.9 TH/MM3 (0-0.9) 0.7 TH/MM3 (0-0.9) Eosinophils # (Auto) 0.1 TH/MM3 (0-0.4) 0.1 TH/MM3 (0-0.4) Basophils # (Auto) 0.1 TH/MM3 (0-0.2) 0.1 TH/MM3 (0-0.2) CBC Comment AUTO DIFF AUTO DIFF Differential Comment AUTO DIFF CONFIRMED AUTO DIFF CONFIRMED Platelet Estimate LOW (NORMAL) Platelet Morphology Comment NORMAL (NORMAL) Target Cells 1+ (NORMAL) Ovalocytes 1+ (NORMAL) Prothrombin Time 14.8 SEC (9.8-11.6) Prothromb Time International Ratio 1.5 RATIO Activated Partial Thromboplast Time 27.2 SEC (24.3-30.1) Blood Urea Nitrogen 10 MG/DL (7-18) 11 MG/DL (7-18) Creatinine 0.67 MG/DL (0.50-1.00) 0.61 MG/DL (0.50-1.00) Random Glucose 112 MG/DL (74-106) 78 MG/DL (74-106) Calcium Level 8.2 MG/DL (8.5-10.1) 8.0 MG/DL (8.5-10.1) Sodium Level 136 MEQ/L (136-145) 138 MEQ/L (136-145) Potassium Level 3.6 MEQ/L (3.5-5.1) 3.4 MEQ/L (3.5-5.1) Chloride Level 105 MEQ/L (98-107) 104 MEQ/L (98-107) Carbon Dioxide Level 20.1 MEQ/L (21.0-32.0) 21.9 MEQ/L (21.0-32.0) Anion Gap 11 MEQ/L (5-15) 12 MEQ/L (5-15) Estimat Glomerular Filtration Rate 87 ML/MIN (>89) 97 ML/MIN (>89) Result Diagram: 03/17/18 0452 03/17/18 0452 Microbiology Microbiology Date/Time Source Procedure Growth Status 03/06/18 14:57 Fluid Peritoneal Fluid Gram Stain - Final Complete 03/06/18 14:57 Fluid Peritoneal Fluid Body Fluid Culture - Final NO GROWTH IN 72 HRS.--AEROBICALLY OR ... Complete Procedures * 03/06/18 -paracentesis removing 5.2L * 03/13/18 -paracentesis removing 6.3L * 03/16/18 -CT-guided liver biopsy * 03/16/18 -paracentesis removing 2.5L . Assessment and Plan Disease Oriented Problem List: (1) Liver cirrhosis (2) Portal hypertension (3) Ascites (4) DM (diabetes mellitus) (5) Pleural effusion (6) Unintended weight loss (7) Generalized weakness Symptom Scale: (1) Shortness of breath 0-10 Scale: Unable to quantify (2) Debility 0-10 Scale: Unable to quantify Pertinent Non-Medical Issues Psychosocial: Originally from [place]. . Has 1 son who lives out of state. 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 Spiritual: Jehovah'[employer] Witness aldo. Legal: No advance directives completed. Ethical issues impacting care: No ethical issues identified. . Important Contacts Son/healthcare surrogate Juan Kim . friend/alternate healthcare surrogate Bev Napier . . Prognosis Ms. Wilson is a 68-year-old female with a medical history significant for severe liver cirrhosis with portal hypertension, diabetes mellitus types 2, history of GI bleed and history of noncompliance with medications or treatments. Patient presented to emergency room on 03/04/18 via EMS endorsing generalized weakness and abdominal distention, worsened during the prior week. Patient underwent 2 thoracentesis removing over 5 L of fluid each time. Patient endorsing progressive decline and poor activity tolerance. She remains at high risk for further decompensation, acute events and . Pending liver biopsy results. . Code Status: No Code Plan * CODE STATUS: DNR/DNI. Community DNR signed and placed in chart. * HEALTHCARE DECISION-MAKING: Patient participated in medical decision making. She appears to have a fair understanding of her clinical condition; however, intermittent episodes of confusion likely secondary to liver disease. Advance directives completed. Patient designated son Juan Kim as healthcare surrogate decision maker, alternate surrogate his friend Bve Napier. Palliative care recommends shared decision making with son or friend Bev given patient's intermittent confusion. * GOALS OF CARE: Patient supported by hers son and friend Bev electing to pursue conservative management short of NO resuscitation. awaiting liver biopsy to have a better understanding of prognosis and/or treatment options. Patient wishing to be discharged home, however, receptive to senior living facility for physical strengthening. Reviewed the future role of hospice should patient' s clinical condition worsen or increased symptom burden. Patient receptive to this. [place] [facility] already following. * SYMPTOMS: =Dyspnea: Secondary to pleural effusions, ascites. Currently tolerating room air. = Debility: Progressive secondary to burden of disease. Patient with severe liver cirrhosis. PT following, PT at rehab recommended. Concerns of patient's ability to return to independent living given generalized weakness, burden of disease. Patient with history of medication/ recommendations noncompliance. * Patient was assisted with completion of advance directives to include designation of healthcare surrogate decision maker and [facility] DNR. Copies were made for patient and friend Bev, originals placed in chart. * Palliative care contact information has been provided to patient and family. * Palliative care will continue to follow up as needed for further clarification of goals of care as patient's clinical course continues to evolve. . Time Spent Total Floor Time (mins): 42 (Total time to include review and summarization of available medical records since last visit, physical exam, goals of care conversation with patient. At least 19 minutes used with assistance with completion of advance directives to include designation of healthcare surrogate decision maker and [facility] DNR.) >50% Counseling/Coord of Care: Yes Attestation To help prompt me to consider important information that might be impacting today's encounter and assessment, information from prior notes written by myself or my colleagues may have been "brought forward" into today's note. My signature on this note, however, is an attestation that I personally performed the exam, history, and/or decision-making noted today, and, unless otherwise indicated, the interactions with patient, family, and staff as well as the review of records all occurred today. I also attest that the listed assessment and stated plan reflect my best clinical judgment today based on the combination of historical information, prior notes, and today's exam/ interactions. When time spent is documented, it refers only to time spent today by the signer, or if indicated, combined time spent today by collaborating physician/nurse practitioner. Carlita Mares March 18, 2018 15:23
--- NOTE | 2018-03-18 16:48 | HHI.PR ---
Subjective Remarks Patient says she is feeling all right. Denies any chest pain or shortness of breath. Denies nausea or vomiting. Lengthy discussion with case management. Patient refusing SNF, would like to go home, however this is not safe. Objective Vital Signs Date Time Temp Pulse Resp B/P (MAP) Pulse Ox O2 Delivery O2 Flow Rate FiO2 03/18/18 13:41 96 Room Air 03/18/18 12:41 96 Room Air 03/18/18 12:00 97.4 70 18 93/65 (74) 96 03/18/18 11:12 77 03/18/18 11:12 96 Room Air 03/18/18 10:02 95 03/18/18 08:00 97.6 76 18 98/63 (75) 96 03/18/18 04:00 Room Air 03/18/18 04:00 74 03/18/18 04:00 97.4 78 17 89/54 (66) 95 03/18/18 00:00 Room Air 03/18/18 00:00 97.2 77 17 101/51 (68) 96 03/18/18 00:00 77 03/18/18 00:00 Room Air 03/17/18 20:00 97.5 72 18 90/58 (69) 96 03/17/18 20:00 76 03/17/18 20:00 Room Air 03/17/18 18:00 72 89/51 (64) I/O 03/17/18 03/17/18 03/17/18 03/18/18 03/18/18 03/18/18 07:00 15:00 23:00 07:00 15:00 23:00 Intake Total 342 ml 480 ml 222 ml Output Total 200 ml Balance 142 ml 480 ml 222 ml Intake Oral 342 ml 480 ml 222 ml Output Urine Total 200 ml # Voids 2 1 # Bowel Movements 0 1 1 Result Diagram: 03/17/18 0452 03/17/18 045 Objective Remarks GENERAL: Patient sitting up in bed. Appears comfortable. SKIN: Warm and dry. HEAD: Normocephalic. EYES: No scleral icterus. No injection or drainage. NECK: Supple, trachea midline. No JVD. CARDIOVASCULAR: Regular rate and rhythm without murmurs, gallops, or rubs. RESPIRATORY: Breath sounds equal bilaterally. No accessory muscle use. GASTROINTESTINAL: Abdomen soft, non-tender, nondistended. MUSCULOSKELETAL: No cyanosis. Trace anasarca. BACK: Nontender without obvious deformity. No CVA tenderness. A/P Assessment and Plan 68-year-old female with: //Cirrhosis: h/o Cirrhosis/Portal HTN per review of records from 12/2016, pt reports "this is the first time I've heard that", h/o GI Bleed requiring transfusion in 12/2016, however LEFT AMA prior to EGD at that time. Unclear etiology, denies alcohol abuse. However reports she used to drink socially in the past. 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 Total Bili 4.7, AST [address] Abd/Pelvis w/ extensive cirrhosis/portal HTN and varices and severe ascites. -Status post large-volume paracentesis. Ascites fluid studies pending. No signs of infection. Paracentesis (03/07/18) 5200 cc removed. SAAG 1.79. Culture negative. Cytology with mesothelial cells, lymphocytes, and macrophages. Negative for malignant cells. -GI following. Continue propranolol, Aldactone, Lasix, monitor I/O. Watch blood pressure closely. -Patient has had over 20 pound unintentional weight loss, CA-19-9 is also elevated. She never had a colonoscopy. Had colonoscopy 03/08 showed Diverticulosis in the sigmoid and descending colon. Internal and external hemorrhoids. Patient refused EGD With hallucinations. Consult psych for eval Ammonia levels elevated, give lactulose if elevated S/p liver biopsy 03/16/18 Check cbc, bmp and repeat INR = INR stable. Anemia stable hemoglobin 10.3. //Anemia H/H stable. LDH WNL and Haptoglobin low, hem/onc consulted. Seen by hematology who has ordered a further work up of the anemia. = Hematology signed off. Likely secondary to liver disease. Follow with hematology as outpatient. //Coagulopathy/thrombocytopenia: secondary to above, INR 2.5 on presentation, improved with vitamin K, continue Vit K 5mg po qd, monitor closely for bleeding. = INR improved to 1.5. Continue to monitor intermittently //Lactic Acidosis: Lactate 6.6, no signs of sepsis, likely due to dehydration from third spacing. Likely from liver disease. //DM2: Hold Metformin, sliding scale w/ Accu-Cheks. //Hypokalemia/hypomagnesemia: Replaced. //Elevated TSH , check free t3 elevated and normal free T4 normal. =recheck as OP later no need to start meds at this time. //DVT Prophylaxis: Pharmacologic contraindication secondary to coagulopathy/ thrombocytopenia Discharge Planning PT recommends SNF placement. CM is ff for DC to SNF. Declined by hospice as patient want more PT and aggressive care, however she is refusing care. S/p repeat paracentesis 03/13 HGB is stable she is also refusing SNF now. PT daily until deemed safe for DC home. patient can't walk and with multiple falls not safe for DC home. =Psych patient is deemed capable to make decisions. Plan for liver biopsy 03/16 Patient is also considering SNF, discussed with CM Difficult discharge. Johnathon Guadarrama MD March 18, 2018 16:48
[2018-03-18] MEDS ORDERED: THIAMINE HCL 100 MG TAB PO ONE (17:00)
[2018-03-18] MEDS: QUEtiapine FUMARATE 25 MG TAB PO SCH (21:44)
[2018-03-19] VITALS (10 sets, daily range): BP systolic 92–104; BP diastolic 51–56; PULSE 68–92; RESP 17–20; TEMP 97.4–97.7; O2SAT 93–97
[2018-03-19] MEDS: INSULIN ASPART SUPPLEMENTAL SCALE SQ SCH ×4 (08:00→21:00)
[2018-03-19] MEDS: RIFAXIMIN 550 MG TAB PO SCH ×2 (10:06→21:46)
[2018-03-19] MEDS: PHYTONADIONE 5 MG/SWFI 5 ML ORAL SYR PO SCH (10:06)
[2018-03-19] MEDS: PROPRANOLOL HCL 10 MG TAB PO SCH ×2 (10:06→21:00)
[2018-03-19] MEDS: THIAMINE HCL 100 MG TAB PO SCH (10:06)
[2018-03-19] MEDS: SPIRONOLACTONE 50 MG TAB PO SCH (10:06)
[2018-03-19] MEDS: DOCUSATE SODIUM 50 MG/SENNA 8.6 MG TAB PO SCH ×2 (10:06→21:46)
[2018-03-19] MEDS: FUROSEMIDE 40 MG TAB PO SCH (10:06)
[2018-03-19] MEDS: SODIUM CHLORIDE 0.9% FLUSH 10 ML FLUSH IV FLUSH SCH ×2 (10:07→21:00)
--- NOTE | 2018-03-19 10:07 | HHI.PR ---
Subjective Remarks Patient says she is feeling all right. Denies any chest pain or shortness of breath. Denies nausea or vomiting. Still not walking. We talked about going to SNF. She says she would like to go to SNF now. Objective Vital Signs Date Time Temp Pulse Resp B/P (MAP) Pulse Ox O2 Delivery O2 Flow Rate FiO2 03/19/18 09:15 93 21 03/19/18 04:00 77 03/19/18 04:00 97.4 72 20 101/51 (68) 97 03/19/18 04:00 Room Air 03/19/18 00:00 97.7 72 20 104/54 (71) 96 03/19/18 00:00 Room Air 03/19/18 00:00 74 03/18/18 20:00 98.0 76 20 108/56 (73) 96 03/18/18 20:00 73 03/18/18 20:00 Room Air 03/18/18 18:00 96 Room Air 03/18/18 17:35 96 21 03/18/18 16:00 97.7 94 18 106/66 (79) 96 03/18/18 13:41 96 Room Air 03/18/18 12:41 96 Room Air 03/18/18 12:00 97.4 70 18 93/65 (74) 96 03/18/18 11:12 77 03/18/18 11:12 96 Room Air I/O 03/18/18 03/18/18 03/18/18 03/19/18 03/19/18 03/19/18 07:00 15:00 23:00 07:00 15:00 23:00 Intake Total 222 ml 480 ml 60 ml Output Total 200 ml Balance 222 ml 480 ml -140 ml Intake Oral 222 ml 480 ml 60 ml Output Urine Total 200 ml # Voids 1 4 # Bowel Movements 1 0 Result Diagram: 03/17/18 04503/17/18 045 Objective Remarks GENERAL: Patient sitting up in bed. Appears comfortable. No change on exam. SKIN: Warm and dry. HEAD: Normocephalic. EYES: No scleral icterus. No injection or drainage. NECK: Supple, trachea midline. No JVD. CARDIOVASCULAR: Regular rate and rhythm without murmurs, gallops, or rubs. RESPIRATORY: Breath sounds equal bilaterally. No accessory muscle use. GASTROINTESTINAL: Abdomen soft, non-tender, nondistended. MUSCULOSKELETAL: No cyanosis. Trace anasarca. BACK: Nontender without obvious deformity. No CVA tenderness. A/P Assessment and Plan 68-year-old female with: //Cirrhosis: h/o Cirrhosis/Portal HTN per review of records from 12/2016, pt reports "this is the first time I've heard that", h/o GI Bleed requiring transfusion in 12/2016, however LEFT AMA prior to EGD at that time. Unclear etiology, denies alcohol abuse. However reports she used to drink socially in the past. 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 Total Bili 4.7, AST [address] Abd/Pelvis w/ extensive cirrhosis/portal HTN and varices and severe ascites. -Status post large-volume paracentesis. Ascites fluid studies pending. No signs of infection. Paracentesis (03/07/18) 5200 cc removed. SAAG 1.79. Culture negative. Cytology with mesothelial cells, lymphocytes, and macrophages. Negative for malignant cells. -GI following. Continue propranolol, Aldactone, Lasix, monitor I/O. Watch blood pressure closely. -Patient has had over 20 pound unintentional weight loss, CA-19-9 is also elevated. She never had a colonoscopy. Had colonoscopy 03/08 showed Diverticulosis in the sigmoid and descending colon. Internal and external hemorrhoids. Patient refused EGD With hallucinations. Consult psych for eval Ammonia levels elevated, give lactulose if elevated S/p liver biopsy 03/16/18 Check cbc, bmp and repeat INR = INR stable. Anemia stable hemoglobin 10.3. //Anemia H/H stable. LDH WNL and Haptoglobin low, hem/onc consulted. Seen by hematology who has ordered a further work up of the anemia. = Hematology signed off. Likely secondary to liver disease. Follow with hematology as outpatient. //Coagulopathy/thrombocytopenia: secondary to above, INR 2.5 on presentation, improved with vitamin K, continue Vit K 5mg po qd, monitor closely for bleeding. = INR improved to 1.5. Continue to monitor intermittently //Lactic Acidosis: Lactate 6.6, no signs of sepsis, likely due to dehydration from third spacing. Likely from liver disease. //DM2: Hold Metformin, sliding scale w/ Accu-Cheks. //Hypokalemia/hypomagnesemia: Replaced. //Elevated TSH , check free t3 elevated and normal free T4 normal. =recheck as OP later no need to start meds at this time. //DVT Prophylaxis: Pharmacologic contraindication secondary to coagulopathy/ thrombocytopenia Discharge Planning PT recommends SNF placement. CM is ff for DC to SNF. Declined by hospice as patient want more PT and aggressive care, however she is refusing care. S/p repeat paracentesis 03/13 HGB is stable she is also refusing SNF now. PT daily until deemed safe for DC home. patient can't walk and with multiple falls not safe for DC home. =Psych patient is deemed capable to make decisions. Plan for liver biopsy 03/16 Patient is also considering SNF, discussed with CM Difficult discharge. = 03/19. Discuss further patient she will agreed to go to SNF. Johnathon Guadarrama MD March 19, 2018 10:07
[2018-03-19] MEDS ORDERED: NOVOLOGSS SQ (14:31)
[2018-03-19] MEDS ORDERED: THIA100 PO (14:31)
[2018-03-19] MEDS ORDERED: SERO25TA PO (14:31)
--- NOTE | 2018-03-19 14:32 | HHI.DS ---
Discharge Summary Admission Date March 04, 2018 at 17:35 Discharge Date: March 19, 2018 Admitting Diagnosis Severe ascites, pleural effusion, cirrhosis (1) Cirrhosis ICD Code: K74.60 - Unspecified cirrhosis of liver Status: Acute (2) Coagulopathy ICD Code: D68.9 - Coagulation defect, unspecified (3) Lactic acidosis ICD Code: E87.2 - Acidosis (4) DM (diabetes mellitus) ICD Code: E11.9 - Type 2 diabetes mellitus without complications Procedures colonoscopy. Please see report Liver biopsy Paracentesis 2 Brief History - From Admission This is a 68-year-old female with a PMH of DM and h/o GI Bleed who presented to the ER w/ abdominal distention and weakness x1 wk. No reported nausea, vomiting or diarrhea. 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 Pt is significantly poor historian w/ seemingly little insight into medical conditions and appears to be non- compliant w/ medical treatments/follow up. Recently discharged by PCP for non- compliance. Per review of medical records, pt w/ similar presentation and admission 01/15/17, had been sent for CT Abd/Pelvis by PCP however never got it done. Was admitted for GI Bleed at that time w/ Hgb 6 s/p transfusion, noted to have cirrhosis w/ ascites, had extensive work up and was to undergo EGD, however pt had episode of hypoxia and EGD re-scheduled, pt LEFT AMA prior to EGD being done. Labs from 01/16/17 w/ BRITNEY negative, Mitochondrial Ab negative, Anti-Sm Muscle Ab negative, Transglutamin IgG/IgA 1.8/<1.2, Hep Panel negative. Pt reports previous h/o Alcohol but states she drinks "only during bike week and only in [place]". On arrival, BP 124/75, HR 96, O2 sat 98% RA, Afebrile. Hemoglobin 11.3. Platelets 107, previously 75 on 01/17/2017. Chemistry essentially unremarkable. Lactic Acid 6.6. Total bilirubin 4.6. AST 49. Ammonia less than 10. Lipase 98. INR 2.3. Salicylate negative, alcohol negative. CT Abdomen/Pelvis severe liver cirrhosis with portal hypertension and varices, severe ascites, moderate right effusion with compressive atelectasis at right lung base. CBC/BMP: 03/17/18 0452 03/17/18 0452 Significant Findings Laboratory Tests Test 03/17/18 04:52 Hemoglobin 10.3 GM/DL (11.6-15.3) Hematocrit 30.9 % (35.0-46.0) Mean Corpuscular Volume 76.7 FL (80.0-100.0) Mean Corpuscular Hemoglobin 25.6 PG (27.0-34.0) Red Cell Distribution Width 36.5 % (11.6-17.2) Platelet Count 103 TH/MM3 (150-450) Monocytes (%) (Auto) 13.9 % (0.0-8.0) Calcium Level 8.0 MG/DL (8.5-10.1) Potassium Level 3.4 MEQ/L (3.5-5.1) PE at Discharge GENERAL: Patient appear chronically ill, appears older than stated age CARDIOVASCULAR: Normal rate and regular rhythm without murmurs, gallops, or rubs. RESPIRATORY: Good respiratory efforts. Breath sounds equal and clear to auscultation bilaterally. GASTROINTESTINAL: Abdomen still distended but much better compared to yesterday. Diffuse, mild discomfort to palpation. MUSCULOSKELETAL: Extremities without cyanosis, or edema. NEURO: Alert & Oriented x4 to person, place, time, situation. Moves all ext x4 PSYCH: Appropriate mood and affect. Hospital Course Patient admitted with lactic acidosis with lactate in the sixes, elevated bilirubin, slightly elevated AST. Imaging shows severe liver cirrhosis, portal hypertension and varices. Severe ascites. Patient underwent therapeutic paracentesis with symptomatic improvement. Patient underwent liver biopsy with results still pending. Patient will need follow-up with GI as outpatient. Liver failure medications were added, with increased diuretics. Patient does have diabetes, and metformin was discontinued as together with liver failure. Likely contributed to lactic acidosis on admission. Patient will be managed on insulin sliding scale. For problem based summary from most recent progress note, please see below. 68-year-old female with: //Cirrhosis: h/o Cirrhosis/Portal HTN per review of records from 12/2016, pt reports "this is the first time I've heard that", h/o GI Bleed requiring transfusion in 12/2016, however LEFT AMA prior to EGD at that time. Unclear etiology, denies alcohol abuse. However reports she used to drink socially in the past. 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 Total Bili 4.7, AST [address] Abd/Pelvis w/ extensive cirrhosis/portal HTN and varices and severe ascites. -Status post large-volume paracentesis. Ascites fluid studies pending. No signs of infection. Paracentesis (03/07/18) 5200 cc removed. SAAG 1.79. Culture negative. Cytology with mesothelial cells, lymphocytes, and macrophages. Negative for malignant cells. -GI following. Continue propranolol, Aldactone, Lasix, monitor I/O. Watch blood pressure closely. -Patient has had over 20 pound unintentional weight loss, CA-19-9 is also elevated. She never had a colonoscopy. Had colonoscopy 03/08 showed Diverticulosis in the sigmoid and descending colon. Internal and external hemorrhoids. Patient refused EGD With hallucinations. Consult psych for eval Ammonia levels elevated, give lactulose if elevated S/p liver biopsy 03/16/18 Check cbc, bmp and repeat INR = INR stable. Anemia stable hemoglobin 10.3. //Anemia H/H stable. LDH WNL and Haptoglobin low, hem/onc consulted. Seen by hematology who has ordered a further work up of the anemia. = Hematology signed off. Likely secondary to liver disease. Follow with hematology as outpatient. //Coagulopathy/thrombocytopenia: secondary to above, INR 2.5 on presentation, improved with vitamin K, continue Vit K 5mg po qd, monitor closely for bleeding. = INR improved to 1.5. Continue to monitor intermittently //Lactic Acidosis: Lactate 6.6, no signs of sepsis, likely due to dehydration from third spacing. Likely from liver disease. //DM2: Hold Metformin, sliding scale w/ Accu-Cheks. //Hypokalemia/hypomagnesemia: Replaced. //Elevated TSH , check free t3 elevated and normal free T4 normal. =recheck as OP later no need to start meds at this time. //DVT Prophylaxis: Pharmacologic contraindication secondary to coagulopathy/ thrombocytopenia Discharge Planning PT recommends SNF placement. CM is ff for DC to SNF. Declined by hospice as patient want more PT and aggressive care, however she is refusing care. S/p repeat paracentesis 03/13 HGB is stable she is also refusing SNF now. PT daily until deemed safe for DC home. patient can't walk and with multiple falls not safe for DC home. =Psych patient is deemed capable to make decisions. Plan for liver biopsy 03/16 Patient is also considering SNF, discussed with CM Difficult discharge. = 03/19. Discuss further patient she will agreed to go to SNF. Pt Condition on Discharge: Stable Discharge Disposition: Discharge to SNF Discharge Time: > 30 minutes Discharge Instructions DIET: Follow Instructions for: Heart Healthy Diet, Diabetic Diet Activities you can perform: Regular-No Restrictions Follow up Referrals: Gastroenterology - 1 Week Oncology/Hematology - 1 Week PCP Follow-up - 2-3 Days New Medications: Walker with Front Wheels (Walker with Front Wheels) 1 Mis Mis EA .XX DIRECTED, #1 0 Refills Furosemide (Furosemide) 40 Mg Tab 40 MG PO DAILY for Blood Pressure Management, #30 TAB Insulin Aspart Inj (Novolog Inj) 100 Unit/Ml Inj 1 INJECTION SQ ACHS SLIDING SCALE for Blood Sugar Management for 30 Days, INJECTION Propranolol (Propranolol) 10 Mg Tab 10 MG PO Q12HR for Blood Pressure Management, #60 TAB Quetiapine (Seroquel) 25 Mg Tab 12.5 MG PO HS for sleep for 30 Days, TAB Rifaximin (Xifaxan) 550 Mg Tab 550 MG PO BID for Blood Pressure Management, #60 TAB Thiamine HCl (Gnp Vitamin B-1) 100 Mg Tab 100 MG PO DAILY for vitamin for 30 Days, #30 TAB Changed Medications: Spironolactone (Spironolactone) 25 Mg Tab 50 MG PO DAILY for Blood Pressure Management, #30 TAB 0 Refills (Changed from: 25 MG) Discontinued Medications: Furosemide (Lasix) 20 Mg Tab 20 MG PO DAILY, #30 TAB 0 Refills Metformin (Metformin) 500 Mg Tab 1000 MG PO BIDPC for Blood Sugar Management, #60 TAB 0 Refills With meals Johnathon Guadarrama MD March 19, 2018 14:32
[2018-03-19] MEDS: QUEtiapine FUMARATE 25 MG TAB PO SCH (21:46)
[2018-03-20] VITALS (8 sets, daily range): BP systolic 92–96; BP diastolic 52–59; PULSE 75–86; RESP 17–20; TEMP 97.4–98.5; O2SAT 93–98
[2018-03-20 07:46] LABS: AUTOMATED NEUTROPHIL # 3.9 TH/MM3 (1.8-7.7); BASOPHIL % 0.7 % (0.0-2.0); EOSINOPHIL # 0.1 TH/MM3 (0-0.4); EOSINOPHIL % 1.4 % (0.0-4.0); HEMATOCRIT 33.7 % (35.0-46.0); HEMOGLOBIN 11.1 GM/DL (11.6-15.3); LYMPH % 28.6 % (9.0-44.0); LYMPHOCYTE # 1.9 TH/MM3 (1.0-4.8); MEAN CELL VOLUME 78.9 FL (80.0-100.0); MEAN CORPUSCULAR HEMOGLOBIN 26.1 PG (27.0-34.0); MEAN CORPUSCULAR HGB CONC 33.1 % (32.0-36.0); MEAN PLATELET VOLUME 8.9 FL (7.0-11.0); MONO % 9.6 % (0.0-8.0); MONOCYTE # 0.6 TH/MM3 (0-0.9); NEUT % 59.7 % (16.0-70.0); PLATELET COUNT 107 TH/MM3 (150-450); RED BLOOD COUNT 4.27 MIL/MM3 (4.00-5.30); RED CELL DISTRIBUTION WIDTH 36.1 % (11.6-17.2); WHITE BLOOD COUNT 6.6 TH/MM3 (4.0-11.0)
[2018-03-20] MEDS: INSULIN ASPART SUPPLEMENTAL SCALE SQ SCH ×3 (08:00→17:00)
[2018-03-20 08:09] LABS: ALBUMIN 2.2 GM/DL (3.4-5.0); BICARBONATE 23.1 MEQ/L (21.0-32.0); CREATININE 0.63 MG/DL (0.50-1.00); MAGNESIUM 2.1 MG/DL (1.5-2.5); PHOSPHORUS 3.2 MG/DL (2.5-4.9)
[2018-03-20 09:25] LABS: TARGET CELLS 1+ (NORMAL)
[2018-03-20] MEDS: SODIUM CHLORIDE 0.9% FLUSH 10 ML FLUSH IV FLUSH SCH (10:41)
[2018-03-20] MEDS: FUROSEMIDE 40 MG TAB PO SCH (10:42)
[2018-03-20] MEDS: THIAMINE HCL 100 MG TAB PO SCH (10:42)
[2018-03-20] MEDS: PHYTONADIONE 5 MG/SWFI 5 ML ORAL SYR PO SCH (10:42)
[2018-03-20] MEDS: SPIRONOLACTONE 50 MG TAB PO SCH (10:42)
[2018-03-20] MEDS: RIFAXIMIN 550 MG TAB PO SCH (10:42)
[2018-03-20] MEDS: PROPRANOLOL HCL 10 MG TAB PO SCH (10:42)
[2018-03-20] MEDS: DOCUSATE SODIUM 50 MG/SENNA 8.6 MG TAB PO SCH (10:42)
[2018-03-20] MEDS: traMADol HCL 50 MG TAB PO PRN (12:07)
== END 2018-03-20 18:56 | DRG 433 ==
LOC: NEPE 13:57 → NEDH 17:35 → N04B 20:44 → N04A 03-08 16:42 → N04B 03-14 08:59 → N04A 03-14 09:00
PROVIDERS: ADMIT Internal Medicine; ATTEND Internal Medicine
PROC: 0W9G3ZX Drainage of Peritoneal Cavity, Percutaneous Approach, Diagnostic (ICD-10-PCS; 2018-03-06)
PROC: 0DJD8ZZ Inspection of Lower Intestinal Tract, Via Natural or Artificial Opening Endoscopic (ICD-10-PCS; principal; 2018-03-08 12:44)
PROC: 0W9G3ZZ Drainage of Peritoneal Cavity, Percutaneous Approach (ICD-10-PCS; 2018-03-13)
PROC: 0FB13ZX Excision of Right Lobe Liver, Percutaneous Approach, Diagnostic (ICD-10-PCS; 2018-03-16)
DX: K74.60 Unspecified cirrhosis of liver (principal); K76.6 Portal hypertension; E87.2 Acidosis; C88.2 Heavy chain disease; J90 Pleural effusion, not elsewhere classified; D68.4 Acquired coagulation factor deficiency; R18.8 Other ascites; F05 Delirium due to known physiological condition; J98.11 Atelectasis; R44.3 Hallucinations, unspecified; E11.649 Type 2 diabetes mellitus with hypoglycemia without coma; K57.30 Diverticulosis of large intestine without perforation or abscess without bleeding; R19.7 Diarrhea, unspecified; K21.9 Gastro-esophageal reflux disease without esophagitis; D69.59 Other secondary thrombocytopenia; R63.4 Abnormal weight loss; R53.1 Weakness; Z91.19 Patient's noncompliance with other medical treatment and regimen; Z91.14 Patient's other noncompliance with medication regimen; K64.4 Residual hemorrhoidal skin tags; K64.8 Other hemorrhoids; K59.00 Constipation, unspecified; Z82.0 Family history of epilepsy and other diseases of the nervous system; Z80.3 Family history of malignant neoplasm of breast; Z51.5 Encounter for palliative care; E86.0 Dehydration; Z79.84 Long term (current) use of oral hypoglycemic drugs; E83.42 Hypomagnesemia; E87.6 Hypokalemia; D63.8 Anemia in other chronic diseases classified elsewhere; M85.80 Other specified disorders of bone density and structure, unspecified site; M17.12 Unilateral primary osteoarthritis, left knee; E88.09 Other disorders of plasma-protein metabolism, not elsewhere classified; K72.90 Hepatic failure, unspecified without coma; Z66 Do not resuscitate
CPT/HCPCS: 47000; 49083; 73560; 73564; 74177; 76937; 77012; 80048; 80053; 80069; 80074; 80076; 80307; 82042; 82103; 82104; 82105; 82140; 82150; 82378; 82390; 82728; 82784; 82805; 82945; 82948; 83010; 83516; 83520; 83540; 83550; 83605; 83615; 83690; 83735; 84155; 84157; 84165; 84439; 84443; 84481; 85025; 85027; 85044; 85384; 85610; 85730; 86038; 86255; 86301; 86850; 86880; 86900; 86901; 87070; 87205; 88112; 88305; 88307; 88313; 88342; 89051; 93005; 96361; 96374; 99152; 99153; C1729; J0780; J1815; J2250; J2370; J3010; J3475; J7030; J7042; P9047; Q9967